=== PATIENT | female | born 1960 | race Caucasian/White ===

== ENCOUNTER 2016-05-10 08:35 | Day surgery (SDC) | payer MEDICAID ==
[2016-05-05 13:13] VITALS: BMI 27.7
--- NOTE | 2016-05-06 15:13 | HP ---
DATE OF ADMISSION: 05/10/2016 HISTORY OF PRESENT ILLNESS: The patient is a 55-year-old 1, para 1-0-0-1 who recently was found by pelvic ultrasound to have a thickened endometrial stripe without any irregular bleeding. She does have a history of tamoxifen therapy and was referred for endometrial biopsy. In the office, the cervix was noted to be fairly stenotic and biopsy was unable to be obtained. As a result, we have opted to proceed with diagnostic hysteroscopy with D&C. Past medical history is significant for low-grade Pap in the past. She additionally has a history of a brain aneurysm as well as breast cancer, which has been treated. SURGICAL HISTORY: She had a bladder suspension in 1992. She underwent aneurysm repair in 2007. She had bilateral mastectomy with reconstruction in 2012. She additionally had a thyroid nodule removed in 2009. There are no apparent anesthetic concerns. OBSTETRICAL HISTORY: 1, para 1-0-0-1 with one term vaginal delivery without complications. GYNECOLOGIC HISTORY: Unremarkable with no history of any infections to include STDs. Family history is noncontributory. 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 She is a former smoker but has not smoked in quite some time. She denies any significant alcohol or any other social concerns. Current medications include: 1. Aspirin 81 mg daily. 2. Bactrim DS once daily for recurrent bladder infections. 3. Cymbalta 20 mg 2 times daily. 4. Tamoxifen 10 mg daily. 5. Vitamin D daily. 6. Xanax 0.25 mg p.r.n. ALLERGIES: ULTRAM caused hives. Review of systems is confined to history of present illness. PHYSICAL EXAMINATION: In general, this is a well-developed, well-nourished, white female in no acute distress. Her heart has a regular rhythm without murmur. Her lungs are clear to auscultation bilaterally in all carrillo. Her abdomen is nondistended, has normoactive bowel sounds. It is soft, nontender, and without any palpable masses, hepatosplenomegaly or hernias. Her extremities are without any cyanosis, clubbing or edema and are nontender to palpation bilaterally. Bimanual pelvic examination demonstrates normal external genitalia and BUS with normal vaginal mucosa and cervix. There is no cervical motion tenderness. The uterus is normal in size and shape with normal adnexa bilaterally. ASSESSMENT AND PLAN: 1. Thickened endometrial stripe on tamoxifen, cervical stenosis. Given these findings we were unable to perform a biopsy in the office. As a result, we will proceed to diagnostic hysteroscopy with dilation and curettage. The risks and complications of the procedure have been thoroughly discussed including the risks for bleeding, bleeding requiring transfusion, infection or injury to local structures to specifically include uterine perforation and the possibility of Asherman's syndrome. She has understood all of these risks and agreed to proceed. We are scheduled for the morning of May 10, 2016.
[~2016-05-10 08:35] MED LIST: DEXAMETHASONE SOD PHOSPHATE 10 MG/ML 1 ML VIAL IV ONE; HYDROmorphone 1 MG/ML 1 ML SYRINGE IVP PRN; LACTATED RINGERS 1,000 ML IV SCH; LIDOCAINE 1% 20 ML VIAL (10MG/ML) FOR IV START INTRADERMA PRN; MIDAZOLAM 2 MG/2 ML VIAL IV PRN; ONDANSETRON 4 MG/2 ML VIAL IVP ONE; Pre Op ABX Message 1 EACH MISC MISCELLANE ONE; SCOPOLAMINE 1.5MG/72HR PATCH TRANSDERM ONE
[2016-05-10] MEDS ORDERED: PROPOFOL 10 MG/ML 20 ML VIAL IV ONE (09:28)
[2016-05-10] MEDS ORDERED: KETOROLAC 30 MG/ML 1 ML VIAL ONE (09:28)
[2016-05-10] MEDS ORDERED: MIDAZOLAM 2 MG/2 ML VIAL ONE (09:28)
[2016-05-10] MEDS ORDERED: fentaNYL (PF) 50 MCG/ML 2 ML AMP ONE (09:28)
[2016-05-10] MEDS ORDERED: LIDOCAINE 1% INJ 10MG/ML (20 ML MDV) ONE (09:28)
[2016-05-10] MEDS ORDERED: diphenhydrAMINE 50 MG/ML 1 ML VIAL IVP PRN (09:35)
[2016-05-10] MEDS ORDERED: KETOROLAC 30 MG/ML 1 ML VIAL IVP PRN (09:35)
[2016-05-10] MEDS ORDERED: SIMETHICONE 80 MG CHEWABLE PO PRN (09:35)
[2016-05-10] MEDS ORDERED: ONDANSETRON 4 MG/2 ML VIAL IVP PRN (09:35)
[2016-05-10] MEDS ORDERED: Acetaminophen-Codeine 300-30mg TAB PO PRN ×2 (09:35)
[2016-05-10] MEDS ORDERED: METOCLOPRAMIDE 5 MG/ML 2 ML VIAL IVP PRN (09:35)
[2016-05-10] MEDS ORDERED: LACTATED RINGERS 1,000 ML IV SCH (09:45)
--- NOTE | 2016-05-10 09:55 | P.OP ---
Date of Procedure: 05/10/16 Preoperative Diagnosis: #1. Thickened endometrial stripe #2. Cervical stenosis Postoperative Diagnosis: Same Procedure(s) Performed: #1. Diagnostic hysteroscopy #2. Dilation and curettage Anesthesia: other (Gen. by facemask) Surgeon: Carlos Torres Estimated Blood Loss (ml): 2 IV fluids (ml): 100 Urine output (ml): 5 Pathology: other (Endometrial curettings) Condition: stable Disposition: PACU Operative Findings: Preoperative pelvic examination demonstrated a fairly atrophic midplane mobile normal shaped uterus with normal adnexa bilaterally. Intraoperatively, the uterus sounded to 7 cm. The cervix remained fairly significantly stenotic and difficult to dilate. Using the hysteroscope, the entire uterine cavity was seen and was completely atrophic to inspection. The bilateral tubal areas were seen though the ostia were not documented secondary to angles. There was minimal to no tissue returned with sharp curettage consistent with the hysteroscopic findings. The typical gritty texture was encountered throughout. Description of Procedure: The patient was prepped and draped in usual fashion after general anesthesia was administered by the anesthesiologist. A weighted speculum was placed in the anterior lip of the surgical single-tooth tenaculum. The bladder was draining approximately 5 mL of clear shabana urine. Serial dilation was carried out until the sound could be admitted demonstrated a uterine length of 7 cm. Further dilation was carried out to admit the diagnostic hysteroscope which was placed with the findings as noted above. There was no evidence of pathology throughout the entire cavity. The entire endometrium appeared atrophic in nature. The bilateral tubal areas were seen though the ostia were not documented secondary to difficulty with the angle of the scope in the vagina. The hysteroscope was removed after adequate hysteroscopy was carried out. Further dilation was carried out to admit a small sharp curette which was used to thoroughly and circumferentially curet the entire endometrial cavity with the typical gritty texture encountered throughout. Minimal to no tissue was returned onto the Telfa in the vagina. There was no significant ongoing bleeding. Some bleeding from the tenaculum sites after the cervix was released were made hemostatic with pressure. Estimated blood loss for the case was less than 2 mL. There were no complications. All sponge, instrument, and needle counts were correct. The patient tolerated the procedure well and proceeded to the recovery room in stable condition.
[2016-05-10 10:06] VITALS: TEMP 97.2
[2016-05-10 10:41] VITALS: RESP 18
[2016-05-10 11:16] VITALS: BP 120/72; PULSE 65
== END 2016-05-10 11:33 | disposition home or self-care (01) ==
LOC: OR 08:35
PROVIDERS: ATTEND Obstetrics & Gynecology
DX: N84.0 Polyp of corpus uteri (principal); R93.8 Abnormal findings on diagnostic imaging of other specified body structures; N88.2 Stricture and stenosis of cervix uteri; F32.9 Major depressive disorder, single episode, unspecified; Z85.3 Personal history of malignant neoplasm of breast; Z79.1 Long term (current) use of non-steroidal anti-inflammatories (NSAID); Z79.2 Long term (current) use of antibiotics; Z79.82 Long term (current) use of aspirin; Z79.810 Long term (current) use of selective estrogen receptor modulators (SERMs); Z79.899 Other long term (current) drug therapy; Z88.8 Allergy status to other drugs, medicaments and biological substances; Z87.891 Personal history of nicotine dependence
CPT/HCPCS: 88305; 58558; J2250; J1100; J2405; J2001; J3010; J1885; J2704

== ENCOUNTER → 2016-07-05 | Outpatient (CLI) | payer MEDICAID ==
--- NOTE | 2016-07-05 12:33 | BD ---
EXAMINATION TYPE: MG DEXA axial skeleton. DATE OF EXAM: 07/05/2016 10:39 AM CLINICAL HISTORY: Breast cancer. Height: 58.5 inches Weight: 135 FRAX RISK QUESTIONS: Alcohol (3 or more units per day): no Family History (Parent hip fracture): no Glucocorticoids (More than 3mos): no (Ex: prednisone, prednisolone, methylprednisolone, dexamethasone, and hydrocortisone). History of Fracture in Adulthood: thumb Secondary Osteoporosis: 1. Type 1 Diabetes: no 2. Hyperthyroidism: no 3. Menopause before 45: no 4. Malnutrition: no 5. Chronic liver disease: no Rheumatoid Arthritis: no Current Tobacco Use: not now, quit RISK FACTORS HISTORY OF: History of Fracture: yes, thumb When: early 20's Family History of Osteoporosis: perhaps grandmother Drink Alcohol: no Active: YES Diet low in dairy products/other sources of calcium: no Postmenopausal woman: yes Take estrogen and/or progesterone medications: not now How long: Hormonal Contraceptives age 16-26 Lost more than 2 inches in height since high school: no Frequent falls: no Poor Health: no Hyperparathyroidism: no Adrenal Insufficiency: no MEDICATIONS: Prednisone or other steroids: no Thyroid Medications: no Osteoporosis Medications: no Additional Medications: Vitamin D, Additional History: breast CA (radiation) took Tamoxifen since 2012, but recently patient's physician placed her on a different medication to replace Tamoxifen EXAM MEASUREMENTS: Bone mineral densitometry was performed using the Uguru System. Bone mineral density as measured about the Lumbar spine is: ----- L1-L4(G/cm2): 0.785 T Score Values are as follows: ----- L2: -3.3 ----- L3: -3.7 ----- L4: -3.6 ----- L1-L4: -3.3 Bone mineral density BASELINE Bone mineral density about the R hip (g/cm2): 0.723 Bone mineral density about the L hip (g/cm2): 0.746 T Score values are as follows: -----R Neck: -2.3 -----L Neck: -2.1 -----R Intertrochanter: -1.9 -----L Intertrochanter: -1.9 Bone mineral density BASELINE IMPRESSION: Osteoporosis (T Score less than -2.5) as noted by T Score values in the low back.There is increased f racture risk and repeat therapy is usually indicated based on age. Re-Screen 1-2 years. NOTE: T-SCORE=SD OF THE YOUNG ADULT MEAN.
== END ==
LOC: RADBDWWP 09:59
PROVIDERS: ATTEND Internal Medicine Hematology & Oncology
DX: M81.0 Age-related osteoporosis without current pathological fracture (principal); C50.912 Malignant neoplasm of unspecified site of left female breast; Z79.890 Hormone replacement therapy; N95.1 Menopausal and female climacteric states; Z88.5 Allergy status to narcotic agent
CPT/HCPCS: 77080

== ENCOUNTER → 2016-11-17 | Outpatient (CLI) | payer MEDICAID ==
--- NOTE | 2016-11-17 13:53 | XR ---
EXAMINATION TYPE: XR shoulder complete RT DATE OF EXAM: 11/17/2016 CLINICAL HISTORY: Right shoulder pain for one year with no known injury TECHNIQUE: Three views of the right shoulder are obtained. COMPARISON: None. FINDINGS: There is no acute fracture/dislocation evident in the right shoulder. The acromioclavicul ar and glenohumeral joint spaces appear within normal limits. The visualized ribs are intact and unr emarkable. Surgical clips are seen overlying the right peripheral lung, likely within the soft tissue s. IMPRESSION: There is no acute fracture or dislocation in the right shoulder. Unremarkable radiograph .
== END | disposition home or self-care (01) ==
LOC: RADXRMAIN 12:47
PROVIDERS: ATTEND Family Medicine
DX: M25.511 Pain in right shoulder (principal)

== ENCOUNTER 2017-05-13 06:22 | Day surgery (SDC) | payer MEDICAID ==
[2017-05-06 12:51] VITALS: BMI 27.9
--- NOTE | 2017-05-12 09:09 | HP ---
HISTORY AND PHYSICAL CHIEF COMPLAINT: Right shoulder pain. 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 She is having a difficult time with overhead activity and at night. She notes anterior and lateral pain. She has tried therapy in addition to medications with minimal improvement of her symptoms. She takes Motrin and oxycodone for pain relief. PAST MEDICAL HISTORY: Significant for breast cancer, depression, brain aneurysm, coronary artery disease, hyperparathyroidism. PAST SURGICAL HISTORY: Significant for previous to bilateral mastectomy, bladder suspension, partial thyroidectomy. CURRENT MEDICATIONS: Aspirin, oxycodone, ibuprofen, and Nexemestane. ALLERGIES: SHE NOTES ALLERGIES TO ULTRAM. FAMILY HISTORY: Is negative. SOCIAL HISTORY: Negative for current tobacco or alcohol use. REVIEW OF SYSTEMS: Sixteen point review of systems otherwise reviewed and is noncontributory. PHYSICAL EXAMINATION: On examination, the patient is approximately 4 foot 11, 136 pounds of mesomorphic habitus. HEENT exam is nonfocal. Neck is supple. On examination of her right shoulder, she is tender about the anterior subacromial space. She has moderate subacromial crepitus. Active range of motion forward elevation 150 degrees, external rotation with arm side 60 degrees, internal rotation to L2. Motor strength is 5 minus over 5 for abduction, active, and external rotation. Impingement test is positive. Speed test is positive. Her distal neurovascular exam otherwise appears intact in the right upper extremity. X-rays of the right shoulder obtained in the office show a type 2 acromion with cystic changes of the greater tuberosity. The humeral head to acromial distance appears diminished. MRI report from 04/08/2017 of the right shoulder shows evidence of a supraspinatus, infraspinatus, and subscapularis tear. There is also bicipital tendinosis present. IMPRESSION: 1. Right shoulder symptomatic rotator cuff tear. 2. Right proximal bicipital tendinosis. 3. History of breast cancer. RECOMMENDATIONS: I talked to the patient at length regarding her condition and treatment options. At this point, she is having significant symptoms despite conservative measures. After thorough discussion, she opts to proceed with surgery. We will plan to proceed with arthroscopic evaluation with possible rotator cuff debridement versus repair. We will also consider biceps tenotomy and subacromial decompression. We will likely perform that as an outpatient procedure. Risks and benefits were discussed at length in layman's terms. MMODL / IJN: [id number] /
[~2017-05-13 06:22] MED LIST changes: -HYDROmorphone 1 MG/ML 1 ML SYRINGE IVP PRN; -LIDOCAINE 1% 20 ML VIAL (10MG/ML) FOR IV START INTRADERMA PRN; +MORPHINE SULFATE 4 MG/ML SYRINGE IV PRN; -Pre Op ABX Message 1 EACH MISC MISCELLANE ONE; +ceFAZolin 1,000 MG in DEXTROSE/WATER 1 50ML.BAG IV ONE
[2017-05-13 06:49] VITALS: RESP 16; TEMP 97.6
[2017-05-13] MEDS ORDERED: LIDOCAINE 1% 20 ML VIAL (10MG/ML) FOR IV START INTRADERMA ONE (06:55)
[2017-05-13] MEDS ORDERED: fentaNYL (PF) 50 MCG/ML 2 ML AMP IV ONE (07:06)
--- NOTE | 2017-05-13 07:26 | P.ONQ ---
Anesthesiology Proc Note - PNB - Peripheral Nerve Block Performed Right Interscalene Single Time Out Performed: Yes (705) Procedure Start Time: 07:06 Procedure Stop Time: 07:14 Indication: Acute Post-Operative Pain, Requested by physician Sedation Type: Sedate with meaningful contact maintained Preparation: Sterile Prep Position: Supine Catheter: None Needle Types: Facet Needle Size: 50mm (2") Needle Gauge: 20 Technique: Ultrasound Injectate: 0.5% Ropivacaine (see comment for volume) (20 mls of Ropivacaine) Blood Aspirated: No Pain Paresthesia on Injection Noted: No Resistance on Injection: Normal Events: Uneventful and Well Tolerated
--- NOTE | 2017-05-13 09:26 | P.OP ---
Date of Procedure: 05/13/17 Preoperative Diagnosis: Symptomatic right rotator cuff tear Postoperative Diagnosis: 3 cm right rotator cuff tear/high-grade partial-thickness tear long head of the biceps/superior labral tear Procedure(s) Performed: Right shoulder arthroscopic subacromial decompression/biceps tenotomy/superior labral debridement/rotator cuff repair Implants: Arthrex 4.75 mm swivel lock anchor 4 Anesthesia: [facility], [facility] Surgeon: Octaviano Herrera Stockbroker #1: Kit Medina Estimated Blood Loss (ml): 10 Pathology: none sent Condition: stable Disposition: PACU Indications for Procedure: The patient's a 57-year-old female who presents with progressive right shoulder pain despite conservative measures. A discussion of the risks and benefits of operative intervention versus continued conservative measures was made with the patient. She opted to proceed with surgery. Operative risks to include infection, neurovascular injury, development of blood clots, possible tendon repair, possible need for subsequent procedures was discussed. Informed consent was obtained. Operative Findings: As below Description of Procedure: The patient was brought to the operating room, and after induction of general anesthesia was placed in a beachchair position. The bony prominences were appropriately padded. I examined the right shoulder. There was no gross block to passive motion. There was no gross glenohumeral instability. The right upper shoulder was prepped and draped in a normal fashion. The bony outlines the acromion, distal clavicle, and coracoid process were outlined with a skin marker. The glenohumeral joint was inflated 50 mL of saline utilizing a spinal needle from posterior approach. A posterior portal was made through a 5 mm skin incision 1 cm medial and inferior to the posterior lateral border of the acromion. A blunt trocar was used to easily into the joint. Diagnostic arthroscopy was performed. An anterior portals made entering the joint above the subscapularis tendon lateral to the coracoid process. The subscapularis tendon appear to be intact. There was a high-grade partial-thickness tear of the long head of biceps involving the intra-articular portion. It was elected to proceed with tenotomy at this point. This was released from the superior labrum and allowed to retract the bicipital groove with electrocautery. There was a type II tear involving the superior labrum that was debrided back to stable base with a motorized shaver. The anterior posterior labrum appeared to be intact. On inspection the rotator cuff, a full-thickness tear involving the supraspinatus tendon was noted. A partial thickness tear involving the portion the infraspinatus was noted. This was debrided with motorized shaver. The posterior portion of the cuff appeared to be intact. Minimal degenerative changes involving humeral head and glenoid were noted. The arthroscope was then placed into the subacromial space. A lateral portal was made through a 5 mm skin incision 2 cm inferior to the anterolateral border of the acromion. The soft tissue on the undersurface the acromion was debrided with a motorized shaver and electrocautery clearly defining the anterior medial and lateral borders as well as the distal clavicle. The coracoacromial ligament was detached from the anterior acromion with electrocautery. An anterior inferior acromioplasty is performed with a motorized myra starting anterolateral, then extending posteriorly, then extending this medially. I was able to convert to a flat acromion verified on the posterior and lateral viewing portals. Attention was then paid towards the rotator cuff. A full-thickness tear was visualized. The edges were debrided with a motorized shaver. The greater tuberosity was prepared and lightly decorticated utilizing a motorized bur. The rotator cuff tear. A 3 cm in length. This is easily brought back to the greater tuberosity. An accessory superior lateral portal was made through a 4 mm skin incision just off the lateral edge of the acromion. 2 anchors were then placed just off the articular surface with the appropriate starting awl. Good purchase was obtained. The fiber tape was passed through the rotator cuff with a scorpion suture passer. These were then crisscrossed and a lateral row was created utilizing again 2 anchors with the appropriate starting awl. The rotator cuff was appropriately tensioned. Good purchase was obtained. Final arthroscopic view showed good compression at the footprint. The arthroscope was then removed. The portals were closed with simple 3-0 nylon suture. A sterile dressing was applied in addition to an abductor brace. Patient was awoken from general anesthesia and transferred to recovery room in good condition. Blood loss was estimated 10 mL. No complications were incurred. Sponge and needle counts were correct at the end the case.
[2017-05-13] MEDS ORDERED: HYDROmorphone 0.5 MG/0.5 ML SYRINGE IVP ONE ×4 (09:57→10:24)
[2017-05-13] MEDS ORDERED: LACTATED RINGERS 1,000 ML IV ONE (10:25)
[2017-05-13 12:35] VITALS: BP 116/81; PULSE 101
== END 2017-05-13 13:02 | disposition home or self-care (01) ==
LOC: OR 06:22
PROVIDERS: ATTEND Orthopaedic Surgery
DX: M75.101 Unspecified rotator cuff tear or rupture of right shoulder, not specified as traumatic (principal); S46.111A Strain of muscle, fascia and tendon of long head of biceps, right arm, initial encounter; S43.431A Superior glenoid labrum lesion of right shoulder, initial encounter; X58.XXXA Exposure to other specified factors, initial encounter; E21.3 Hyperparathyroidism, unspecified; I25.10 Atherosclerotic heart disease of native coronary artery without angina pectoris; Z87.891 Personal history of nicotine dependence; F32.9 Major depressive disorder, single episode, unspecified; Z85.3 Personal history of malignant neoplasm of breast; Z90.13 Acquired absence of bilateral breasts and nipples; Z79.811 Long term (current) use of aromatase inhibitors; Z79.82 Long term (current) use of aspirin; Z79.1 Long term (current) use of non-steroidal anti-inflammatories (NSAID); Z79.899 Other long term (current) drug therapy; Z79.891 Long term (current) use of opiate analgesic; Z88.5 Allergy status to narcotic agent
CPT/HCPCS: 64415; 29826; 29827; C1713; C1894; J2250; J1100; J2405; J3010; J0690; J1170

== ENCOUNTER → 2017-11-09 | Outpatient (CLI) | payer MEDICAID ==
--- NOTE | 2017-11-09 14:14 | USB ---
Reason for exam: clinical finding. History: Patient has history of breast cancer at age 51. Malignant left mammotome panel of the left breast, September 30, 2011. Mastectomy of both breasts, 2011. Chemotherapy, 2011. Benign excisional biopsy of both breasts, 1990. Took hormonal contraceptives for 10 years beginning at age 18. Indicated problem(s): lump or thickening in the left breast. Physical Findings: Nurse Summary: Patient complains of left axilla lump/soreness x 1 week, palpable lump/thickening left axilla (nurse mj). US Breast Axilla LT Left axilla breast ultrasound demonstrates a 1.6 x 1.3 x 1.5cm solid, hypoechoic lesion at the axilla, a 1.6 x 1.2 x 1.8cm solid, hypoechoic lesion at the axilla and a 3.3 x 4.7 x 4.6cm complex, hypoechoic lesion at the axilla. These results were verbally communicated with the patient and result sheet given to the patient on 11/09/17. ASSESSMENT: Highly suggestive of malignancy, BI-RAD 5 RECOMMENDATION: Surgical consultation of the left breast. Called Dr. Penny with mammographic findings and has scheduled an appointment with Dr. Aponte. PRELIMINARY REPORT CALLED AND FAXED TO DR. IRWIN ON 11/09/17.
--- NOTE | 2017-11-09 14:18 | USB ---
Reason for exam: clinical finding. History: Patient has history of breast cancer at age 51. Malignant left mammotome panel of the left breast, September 30, 2011. Mastectomy of both breasts, 2011. Chemotherapy, 2011. Benign excisional biopsy of both breasts, 1990. Took hormonal contraceptives for 10 years beginning at age 18. Physical Findings: Nurse Summary: Patient complains of left axilla lump/soreness x 1 week, palpable lump/thickening left axilla (nurse mj). US Breast Axilla RT Right axilla breast ultrasound demonstrates small non-suspicious lymph nodes at axilla, probably lipomas bilateral upper outer quadrants. These results were verbally communicated with the patient and result sheet given to the patient on 11/09/17. ASSESSMENT: Highly suggestive of malignancy, BI-RAD 5 RECOMMENDATION: Surgical consultation. (left) Called Dr. Penny with mammographic findings and has scheduled an appointment with Dr. Aponte. PRELIMINARY REPORT CALLED AND FAXED TO DR. IRWIN ON 11/09/17.
== END | disposition home or self-care (01) ==
LOC: RADUSWWP 10:57
PROVIDERS: ATTEND Internal Medicine Hematology & Oncology
DX: C50.912 Malignant neoplasm of unspecified site of left female breast (principal); Z88.6 Allergy status to analgesic agent; Z91.048 Other nonmedicinal substance allergy status

== ENCOUNTER → 2017-11-28 | Outpatient (CLI) | payer MEDICAID ==
--- NOTE | 2017-11-29 10:36 | ECHOF ---
Referral Reason:C50.912 Z10.018 MEASUREMENTS -------- HEIGHT: 149.9 cm WEIGHT: 65.8 kg BP: RVIDd: 3.0 cm (< 3.3) IVSd: 0.9 cm (0.6 - 1.1) LVIDd: 4.2 cm (3.9 - 5.3) LVPWd: 1.0 cm (0.6 - 1.1) IVSs: 1.3 cm LVIDs: 2.3 cm LVPWs: 1.2 cm LAESV Index (A-L): 13.96 ml/m Ao Diam: 2.9 cm (2.0 - 3.7) AV Cusp: 2.1 cm (1.5 - 2.6) LA Diam: 2.5 cm (2.7 - 3.8) MV EXCURSION: 11.844 mm (> 18.000) MV EF SLOPE: 85 mm/s (70 - 150) EPSS: 0.8 cm MV E Ke: 0.78 m/s MV DecT: 276 ms MV A Ke: 0.87 m/s MV E/A Ratio: 0.90 RAP: 5.00 mmHg RVSP: 23.10 mmHg FINDINGS -------- Sinus rhythm. This was a technically adequate study. The left ventricular size is normal. Left ventricular wall thickness is normal. Overall left vent ricular systolic function is normal with, an EF between 55 - 60 %. The right ventricle is normal in size and function. Normal LA size by volume 22+/-6 ml/m2. RA appears enlarged. Aortic valve is trileaflet and is mildly thickened. Trace to mild aortic regurgitation. There is no evidence of aortic stenosis. The mitral valve leaflets are mildly thickened. There is trace to mild mitral regurgitation. Mild tricuspid regurgitation present. Right ventricular systolic pressure is normal at < 35 mmHg. There is no evidence of pulmonary hypertension. Trace/mild (physiologic) pulmonic regurgitation. The aortic root size is normal. Normal inferior vena cava with normal inspiratory collapse consistent with estimated right atrial pre ssure of 5 mmHg. There is no pericardial effusion. CONCLUSIONS -------- 1. Sinus rhythm. 2. This was a technically adequate study. 3. The left ventricular size is normal. 4. Left ventricular wall thickness is normal. 5. Overall left ventricular systolic function is normal with, an EF between 55 - 60 %. 6. Normal LA size by volume 22+/-6 ml/m2. 7. RA appears enlarged. 8. Aortic valve is trileaflet and is mildly thickened. 9. Trace to mild aortic regurgitation. 10. The mitral valve leaflets are mildly thickened. 11. There is trace to mild mitral regurgitation. 12. Mild tricuspid regurgitation present. 13. Right ventricular systolic pressure is normal at < 35 mmHg. 14. There is no evidence of pulmonary hypertension. 15. Trace/mild (physiologic) pulmonic regurgitation. 16. The aortic root size is normal. 17. There is no pericardial effusion. DIAGNOSTIC TECHNOLOGIST: Valdemar Adams RDCS
== END | disposition home or self-care (01) ==
LOC: RADECHMAIN 15:47
PROVIDERS: ATTEND Internal Medicine Hematology & Oncology
DX: Z01.818 Encounter for other preprocedural examination (principal); I07.1 Rheumatic tricuspid insufficiency; C50.912 Malignant neoplasm of unspecified site of left female breast
CPT/HCPCS: 93306

== ENCOUNTER 2017-12-01 12:44 | Day surgery (SDC) | payer MEDICAID ==
[2017-11-30 08:18] VITALS: BMI 29.2
[~2017-12-01 12:44] MED LIST changes: +HYDROmorphone 0.5 MG/0.5 ML SYRINGE IVP PRN; -MIDAZOLAM 2 MG/2 ML VIAL IV PRN; -MORPHINE SULFATE 4 MG/ML SYRINGE IV PRN; +Pre Op ABX Message 1 EACH MISC MISCELLANE ONE; -SCOPOLAMINE 1.5MG/72HR PATCH TRANSDERM ONE; -ceFAZolin 1,000 MG in DEXTROSE/WATER 1 50ML.BAG IV ONE
--- NOTE | 2017-12-01 12:51 | P.GSHP ---
History of Present Illness H&P Date: 12/01/17 Chief Complaint: Recurrent left breast cancer Patient here today for Port-A-Cath placement. Was diagnosed with left breast cancer 5-6 years ago. Recently found a mass in the left axilla. Biopsy is showing a recurrent left breast cancer. She is to start chemotherapy in the near future. 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 BREAST CANCER 2012 & 10/2017 History of Any Multi-Drug Resistant Organisms: None Reported Past Surgical History: Bladder Surgery, Breast Surgery, Orthopedic Surgery Additional Past Surgical History / Comment(s): thyroid NODULE REMOVED. BILAT MASTECTOMY W/FLAP AND CHEMO 2012. COLONOSCOPY. D & C. BLADDER SUSPENSION; Shoulder Arthroscopy Past Anesthesia/Blood Transfusion Reactions: No Reported Reaction Smoking Status: Former smoker - Past Family History Mother Family Medical History: No Reported History Medications and Allergies Home Medications Medication Instructions Recorded Confirmed Type Cholecalciferol [Vitamin D3] 1,000 unit PO DAILY 10/24/13 11/30/17 History Vitamin B Complex 1 cap PO DAILY 05/05/16 11/30/17 History Aspirin EC [Ecotrin Low Dose] 81 mg PO DAILY 07/22/16 11/30/17 History DULoxetine HCL [Cymbalta] 30 mg PO DAILY 07/22/16 11/30/17 History Ibuprofen [Motrin] 800 mg PO Q8HR PRN #21 tab 07/23/16 11/30/17 Rx ALPRAZolam [Xanax] 0.25 mg PO DAILY PRN 05/06/17 11/30/17 History HYDROcodone/APAP 7.5-325MG [[place] 1 - 2 each PO Q6HR PRN #40 tab 05/13/17 Rx 7.5] Allergies Allergy/AdvReac Type Severity Reaction Status Date / Time tramadol HCl [From Ultram] Allergy Rash/Hives Verified 11/30/17 08:13 Surgical - Exam Physical exam: General: Well-developed, well-nourished HEENT: Normocephalic, sclerae nonicteric Abdomen: Nontender, nondistended Extremities: No edema Neuro: Alert and oriented Assessment and Plan (1) Breast cancer, left breast Narrative/Plan: Will proceed with Port-A-Cath placement today. Risks of bleeding, infection, DVT , pneumothorax, catheter malfunction, anesthesia related complications were discussed. The patient understands and wishes to proceed. Current Visit: Yes Status: Acute Code(s): C50.912 - MALIGNANT NEOPLASM OF UNSPECIFIED SITE OF LEFT FEMALE BREAST SNOMED Code(s): 650515542
[2017-12-01 13:20] VITALS: TEMP 98
[2017-12-01] MEDS ORDERED: LACTATED RINGERS 1,000 ML IV ONE (13:20)
[2017-12-01] MEDS ORDERED: LIDOCAINE 1% 20 ML VIAL (10MG/ML) FOR IV START INTRADERMA ONE (13:20)
[2017-12-01] MEDS ORDERED: fentaNYL (PF) 50 MCG/ML 2 ML AMP ONE (14:28)
[2017-12-01] MEDS ORDERED: MIDAZOLAM 2 MG/2 ML VIAL ONE (14:28)
[2017-12-01] MEDS ORDERED: PROPOFOL 10 MG/ML 20 ML VIAL IV ONE (14:28)
[2017-12-01] MEDS ORDERED: SODIUM CHLORIDE 0.9% 50 ML with ceFAZolin 2,000 MG IV ONE ×2 (14:45)
[2017-12-01] MEDS ORDERED: HEPARIN SODIUM,PORCINE 100 UNIT/ML 5 ML VIAL IV ONE (14:50)
[2017-12-01] MEDS ORDERED: LIDOCAINE (PF) 10 MG/ML 2 ML VIAL SQ ONE (14:50)
[2017-12-01] MEDS ORDERED: HYDROcodone/APAP 5-325MG 1 EACH TAB PO PRN (15:09)
[2017-12-01] MEDS ORDERED: NALOXONE 0.4 MG/ML 1 ML VIAL IV PRN (15:09)
--- NOTE | 2017-12-01 15:11 | P.OP ---
Date of Procedure: 12/01/17 Procedure(s) Performed: PREOPERATIVE DIAGNOSIS: Recurrent left breast cancer POSTOPERATIVE DIAGNOSIS: Same PROCEDURE: Port-A-Cath placement SURGEON: Fabienne EBL: Minimal ANESTHESIA: Sedation COMPLICATIONS: None OPERATIVE PROCEDURE: Patient was brought and placed on the operative table in the supine position. The patient was sedated per anesthesia that time. The chest and neck were prepped and draped in usual sterile fashion. The ultrasound probe was used to identify the location of the right internal jugular vein. The skin was localized with lidocaine. The Seldinger needle was advanced into the IJ under ultrasound guidance. The wire was advanced through the needle under fluoroscopic guidance into the superior vena cava. A port pocket was created in the right infraclavicular location through the same previous scar site. The catheter was tunneled from the wire entrance site to the port pocket. The port was then connected to the catheter. The dilator introducer was threaded over the guidewire. The guidewire and dilator were then removed. The catheter was advanced through the introducer and introducer was then removed. The tip was seen to be in the right atrial junction. Port was flushed with both saline and a Hep-Lock solution. There was good flow both in and out of the port. The port was sutured in underlying tissues using 3-0 silk sutures. The subcutaneous tissues were reapproximated using 3-0 Vicryl sutures and the skin at both locations using 4-0 Monocryl sutures. Steri- Strips and sterile dressings then applied. DISPOSITION: Stable to recovery room
--- NOTE | 2017-12-01 15:18 | FL ---
EXAMINATION TYPE: FL guided central line placemt HISTORY: Fluoroscopy time Impression: 1. Fluoroscopy support provided to the referring physician. 3 seconds of fluoroscopy provided.
[2017-12-01 15:24] VITALS: RESP 16
--- NOTE | 2017-12-01 15:49 | XR ---
EXAMINATION TYPE: XR chest 1V confirm line [facility] DATE OF EXAM: 12/01/2017 COMPARISON: 07/22/2016 HISTORY: Right central line placement TECHNIQUE: Single frontal view of the chest is obtained. FINDINGS: There is a new right Mediport terminating just proximal to the cavoatrial junction, approp riately placed. There is no evidence of postprocedural pneumothorax. Surgical clips overlie the midli ne chest bilaterally. Curvilinear metallic densities are also presumed to be postoperative in nature adjacent to the surgical clips. There is no focal air space opacity, pleural effusion, or pulmonary v ascular congestion seen. The cardiac silhouette size is within normal limits. The osseous structur es are intact. IMPRESSION: New appropriately placed right-sided Mediport without postprocedural pneumothorax.
[2017-12-01 16:14] VITALS: BP 132/82; PULSE 64
== END 2017-12-01 16:21 | disposition home or self-care (01) ==
LOC: OR 12:44
PROVIDERS: ATTEND Surgery
DX: C50.912 Malignant neoplasm of unspecified site of left female breast (principal); Z17.0 Estrogen receptor positive status [ER+]; R91.1 Solitary pulmonary nodule; M81.0 Age-related osteoporosis without current pathological fracture; G47.00 Insomnia, unspecified; F32.9 Major depressive disorder, single episode, unspecified; E89.0 Postprocedural hypothyroidism; Z92.21 Personal history of antineoplastic chemotherapy; Z79.82 Long term (current) use of aspirin; Z79.899 Other long term (current) drug therapy; Z90.13 Acquired absence of bilateral breasts and nipples; Z88.5 Allergy status to narcotic agent; Z91.048 Other nonmedicinal substance allergy status; Z87.891 Personal history of nicotine dependence
CPT/HCPCS: 77001; 36561; C1788; J2250; J2001; J1642; J1100; J2405; J3010; J0690; J2704

== ENCOUNTER → 2017-12-03 | Outpatient (CLI) | payer MEDICAID ==
--- NOTE | 2017-12-03 15:31 | PE ---
EXAMINATION TYPE: PET CT fusion skull to thigh DATE OF EXAM: 12/03/2017 COMPARISON: Bilateral axillary ultrasound November 09, 2017 and CTA chest November 01, 2013 HISTORY: History of left breast cancer diagnosed 2012 completed chemotherapy 2011 with bilateral mast ectomy 2012 with recent abnormal ultrasound left axilla. TECHNIQUE: Following the intravenous administration of 13.416 mCi of F-18 FDG, whole body images are performed from the skull base to the midthigh. Images are reviewed on the computer in the coronal, axial, and sagittal planes. Reconstructed rotating images are created on independent workstation and reviewed on the computer. A localization and attenuation correction CT is performed in conjunction with the PET scan. SCAN: Initial Scan FINDINGS: SKULL BASE AND NECK: No suspicious hypermetabolic uptake is present. Mild uptake at level of right g lenohumeral joint is presumed postinflammatory. CHEST, MEDIASTINUM, AND HILAR REGION: Corresponding to most recent ultrasound there are several enlar ged left axillary masses or lymph nodes, largest measures 5.4 x 3.5 cm on axial image 64 with max SUV of 15.79. Additional smaller hypermetabolic masses or lymph nodes are present. Surgical possible bio psy clip is noted anteriorly inferiorly axial image 70. This is new from 2014 CT. No suspicious hypermetabolic right axillary adenopathy is seen. There are abnormal hypermetabolic thoracic lymph nodes however noted. For reference there is 2.1 x 1. 5 cm pericarinal lymph node axial image 73 with max SUV of 8.9. For reference there is abnormal subca rinal lymph node measuring 2.3 x 1.8 cm axial image 79 with max SUV of 11.42. There are additional ab normal hypermetabolic AP window lymph noted axial image 71 and right hilar lymph nodes axial image 86 . ABDOMEN AND PELVIS: There are 2-3 suspicious hypermetabolic foci scattered throughout the liver, larg est is seen axial image 113 measuring roughly 1.5 cm on long axis max SUV is 8.05, corresponding CT l esions are not clearly seen but early metastatic disease is suspected given thoracic findings. OSSEOUS STRUCTURES: No new areas of abnormal hypermetabolic uptake are present. OTHER CT: Artifact from aneurysm coil axial image 1 as noted. There is new right internal jugular Mediport catheter terminating in SVC. There is background mild to moderate underlying emphysematous change. There are stable tiny pericardial effusion. IMPRESSION: PET/CT findings confirmed recurrent metastatic neoplasm involving the left axilla, thorac ic adenopathy as detailed above, and probable early hepatic metastatic disease.
== END | disposition home or self-care (01) ==
LOC: RADPETMAIN 11:39
PROVIDERS: ATTEND Internal Medicine Hematology & Oncology
DX: C79.89 Secondary malignant neoplasm of other specified sites (principal); R59.0 Localized enlarged lymph nodes; C50.812 Malignant neoplasm of overlapping sites of left female breast
CPT/HCPCS: 78815; A9552

== ENCOUNTER 2017-12-17 02:32 | Inpatient (IN) | payer MEDICAID ==
[2017-12-17] MEDS ORDERED: IBUPROFEN 600 MG TAB PO STA (02:57)
[2017-12-17] MEDS ORDERED: cefTRIAXone IN SWFI 1,000 MG/10 ML SYRINGE IVP STA (02:57)
[2017-12-17] MEDS: SODIUM CHLORIDE 0.9% 500 ML IV SCH ×3 (04:05→05:27)
[2017-12-17 04:14] LABS: HGB 11.8 gm/dL (11.4-16.0); MCH 30.5 pg (25.0-35.0); MCHC 33.6 g/dL (31.0-37.0); MCV 90.9 fL (80.0-100.0); Mean Platelet Volume 7.2; Platelet Count 202 k/uL (150-450); RBC 3.85 m/uL (3.80-5.40); RDW 12.5 % (11.5-15.5)
[2017-12-17 04:17] LABS: Appearance,Urine Clear (Clear); Bilirubin,Urine Negative (Negative); Blood,Urine Small (Negative); Color,Urine Yellow; Glucose,Urine (UA) Negative (Negative); Ketones,Urine Negative (Negative); Leukocyte Esterase,Urine Negative (Negative); Mucus,Urine Rare /hpf; Nitrite,Urine Negative (Negative); Protein,Urine Negative (Negative); RBC,Urine 1 /hpf (0-5); Specific Gravity,Urine 1.008 (1.001-1.035); Squamous Epithelial Cell,Urine <1 /hpf (0-4); Urobilinogen,Urine <2.0 mg/dL (<2.0); WBC,Urine 1 /hpf (0-5)
[2017-12-17 04:20] LABS: ALT 53 U/L (9-52); AST 30 U/L (14-36); Albumin 3.8 g/dL (3.5-5.0); Alkaline Phosphatase 60 U/L (38-126); Anion Gap 7 mmol/L; Blood Urea Nitrogen 12 mg/dL (7-17); Calcium 10.5 mg/dL (8.4-10.2); Carbon Dioxide 25 mmol/L (22-30); Chloride 104 mmol/L (98-107); Glucose 116 mg/dL (74-99); Potassium 3.6 mmol/L (3.5-5.1); Sodium 136 mmol/L (137-145); Total Bilirubin 0.5 mg/dL (0.2-1.3); Total Protein 6.6 g/dL (6.3-8.2)
[2017-12-17 04:38] LABS: WBC 1.1 k/uL (3.8-10.6)
[2017-12-17 05:09] LABS: Band Neutrophils % 1 %; Basophils # (M) 0.02 k/uL (0-0.2); Eosinophils # (M) 0.02 k/uL (0-0.7); Lymphocytes # (M) 0.85 k/uL (1.0-4.8); Monocytes # (M) 0.13 k/uL (0-1.0); Neutrophils % (M) 6 %; Nucleated Red Blood Cells 0 /100 WBC (0-0); Total Cells Counted 100
[2017-12-17] MEDS ORDERED: ACETAMINOPHEN TAB 325 MG TAB PO PRN (05:26)
[2017-12-17] MEDS ORDERED: NALOXONE 0.4 MG/ML 1 ML VIAL IV PRN (05:26)
[2017-12-17] MEDS ORDERED: IBUPROFEN 400 MG TAB PO PRN (05:26)
--- NOTE | 2017-12-17 05:38 | ED ---
General Adult HPI - General Chief complaint: Fever Stated complaint: fever Time Seen by Provider: 12/17/17 02:57 Source: patient Mode of arrival: ambulatory Limitations: no limitations - History of Present Illness Initial comments: Kell is a 57-year-old female with a past medical history significant for breast cancer diagnosed 5 years ago, with recently diagnosed recurrent metastatic breast cancer in the lymph nodes. Patient is currently undergoing chemotherapy with a triple drug regimen. Patient reports that she's been experiencing some mild tenderness to, acid reflux and diarrhea since starting chemotherapy. Patient reports that last week she was diagnosed with otitis media and given an oral antibiotic which she has been compliant with. Patient reports that she is feeling okay this week but throughout the day today she felt progressively weaker. She reports she was at home this evening when she began having hot flashes and feeling very febrile, she checked her temperature noted that it was 101.4, she took some Tylenol and came to the ER for further evaluation. Patient reports she still has mild pain in her left ear and left cervical lymph nodes as well as a sore throat. Patient reports that her last chemotherapy was last Tuesday. Her next chemotherapy is scheduled for the . Patient reports that 5 years ago when she was treated for her breast cancer she tolerated chemotherapy well without complications but she feels that this triple drug regimen is really kicking her butt and that she is feeling very run down by this round of chemotherapy. - Related Data Home Medications Medication Instructions Recorded Confirmed Cholecalciferol [Vitamin D3] 1,000 unit PO DAILY 10/24/13 12/09/17 Vitamin B Complex 1 cap PO DAILY 05/05/16 12/09/17 Aspirin EC [Ecotrin Low Dose] 81 mg PO DAILY 07/22/16 12/09/17 DULoxetine HCL [Cymbalta] 30 mg PO DAILY 07/22/16 12/09/17 ALPRAZolam [Xanax] 0.25 mg PO DAILY PRN 05/06/17 12/09/17 Dexamethasone [Hexadrol] 4 mg PO DIRECTED 12/09/17 12/09/17 Ondansetron [Zofran] 4 mg PO DIRECTED PRN 12/09/17 12/09/17 Previous Rx's Medication Instructions Recorded Ibuprofen [Motrin] 800 mg PO Q8HR PRN #21 tab 07/23/16 HYDROcodone/APAP 7.5-325MG [[place] 1 - 2 each PO Q6HR PRN #40 tab 05/13/17 7.5] Hydrocodone/Acetaminophen [[place] 1 - 2 each PO Q4HR PRN #15 tab 12/01/17 5-325] Allergies Allergy/AdvReac Type Severity Reaction Status Date / Time tramadol HCl [From Ultram] Allergy Rash/Hives Verified 12/17/17 02:38 Review of Systems ROS Statement: Those systems with pertinent positive or pertinent negative responses have been documented in the HPI. ROS Other: All systems not noted in ROS Statement are negative. Constitutional: Reports: fever, chills Eyes: Denies: eye pain, eye discharge, vision change ENT: Reports: ear pain, throat pain. Denies: dental pain, hearing loss, epistaxis, congestion Respiratory: Denies: cough, dyspnea Cardiovascular: Reports: palpitations. Denies: chest pain Endocrine: Reports: fatigue Gastrointestinal: Reports: abdominal pain (epigastric - after each chemo), nausea, diarrhea Genitourinary: Denies: urgency, dysuria, frequency Musculoskeletal: Denies: back pain Skin: Denies: rash, lesions Neurological: Denies: headache Psychiatric: Reports: depression (situationally appropriate). Denies: anxiety Hematological/Lymphatic: Reports: easy bruising, swollen glands (palpable left axillary lymph nodes). Denies: easy bleeding Past Medical History Past Medical History: Cancer Additional Past Medical History / Comment(s): BRAIN ANEURYSM 2008 REQUIRED COILING AT [facility]. BREAST CANCER 2012 & 10/2017 History of Any Multi-Drug Resistant Organisms: None Reported Past Surgical History: Bladder Surgery, Breast Surgery, Orthopedic Surgery Additional Past Surgical History / Comment(s): thyroid NODULE REMOVED. BILAT MASTECTOMY W/FLAP AND CHEMO 2012. COLONOSCOPY. D & C. BLADDER SUSPENSION; Shoulder Arthroscopy Past Anesthesia/Blood Transfusion Reactions: No Reported Reaction Past Psychological History: Anxiety, Depression Smoking Status: Former smoker Past Alcohol Use History: None Reported Past Drug Use History: None Reported - Past Family History Mother Family Medical History: No Reported History General Exam - General Exam Comments Initial Comments: GENERAL: Patient is well-developed and well-nourished. Patient is nontoxic and slightly dehydrated in mild distress. Patient is noted to be tachycardic and febrile on arrival. HENT: Normocephalic, Atraumatic. Left TM is erythematous with some purulent material behind the TM, no mastoid tenderness, no swelling around the ear, no surrounding cellulitis or infection Neck is soft and supple. No anterior cervical lymphadenopathy is noted. Oropharynx is clear with small blisters in the posterior oropharynx. Moist mucous membranes. Neck has full range of motion without eliciting any pain. EYES: The sclera were anicteric and conjunctiva were pink and moist. Extraocular movements were intact and pupils were equal round and reactive to light. Eyelids were unremarkable. PULMONARY: Unlabored respirations. Good breath sounds bilaterally. No audible rales rhonchi or wheezing was noted. CARDIOVASCULAR: Tachycardic and regular ABDOMEN: Soft and nontender with normal bowel sounds. SKIN: Skin is clear with no lesions or rashes and otherwise unremarkable. NEUROLOGIC: Patient is alert and oriented x3. Cranial nerves II through XII are grossly intact. Motor and sensory are also intact. Normal speech, volume and content. Symmetrical smile. MUSCULOSKELETAL: Normal extremities with adequate strength and full range of motion. No lower extremity swelling or edema. No calf tenderness. LYMPHATICS: Palpable lymph nodes in the left axilla PSYCHIATRIC: Normal psychiatric evaluation. Limitations: no limitations Limitations: no limitations Course Vital Signs 12/17/17 12/17/17 02:36 05:30 Temperature 98.2 F 98.0 F Pulse Rate 127 H Respiratory 20 Rate Blood Pressure 112/74 O2 Sat by Pulse 97 Oximetry EKG Findings - EKG Comments: EKG Findings:: EKG obtained at 4:20 AM, rate is 90, rhythm is sinus, normal axis , normal intervals, AK 142, QRS 82, QTc 433, there is no acute ST elevations or depressions no evidence of acute ischemia or infarction Medical Decision Making - Medical Decision Making The patient was seen and evaluated, history was obtained from the patient and review of medical record Karey immunocompromise patient currently undergoing chemotherapy, currently being treated for an otitis media who presents the ER febrile, tachycardic, tachypneic with complaint of persistent left ear pain as well as sore throat Physical exam reveals mild otitis media, no evidence of otitis externa or mastoiditis on exam Posterior oropharynx is injected with some small blisters consistent with mucositis associated with chemotherapy Septic workup was initiated, an empiric dose of Rocephin was ordered and given The patient's tachycardia resolved after first liter of IV fluids I return to the patient's room to discuss her lab findings including leukopenia with an absolute neutrophil count of 0, patient became very upset stating that she didn't want to stay in the hospital although she does understand the need to. I will treat this neutropenic fever with cefepime Will admit the patient for further antibiotic treatment, oncology and infectious disease consulted Discussed patient care with the admitting ordered nadirs to ensure that the patient has an isolation room and strict neutropenic precautions were followed. - Lab Data Result diagrams: 12/17/17 03:59 12/17/17 03:59 Lab Results 12/17/17 12/17/17 12/17/17 Range/Units 03:59 03:59 03:59 WBC 1.1 L* (3.8-10.6) k/uL RBC 3.85 (3.80-5.40) m/uL Hgb 11.8 (11.4-16.0) gm/dL Hct 35.0 (34.0-46.0) % MCV 90.9 (80.0-100.0) fL MCH 30.5 (25.0-35.0) pg MCHC 33.6 (31.0-37.0) g/dL RDW 12.5 (11.5-15.5) % Plt Count 202 (150-450) k/uL Neutrophils % (Manual) 6 % Band Neutrophils % 1 % Lymphocytes % (Manual) 77 % Monocytes % (Manual) 12 % Eosinophils % (Manual) 2 % Basophils % (Manual) 2 % Neutrophils # (Manual) 0.00 L (1.3-7.7) k/uL Lymphocytes # (Manual) 0.85 L (1.0-4.8) k/uL Monocytes # (Manual) 0.13 (0-1.0) k/uL Eosinophils # (Manual) 0.02 (0-0.7) k/uL Basophils # (Manual) 0.02 (0-0.2) k/uL Nucleated RBCs 0 (0-0) /100 WBC Manual Slide Review Performed PT (9.0-12.0) sec INR (<1.2) APTT (22.0-30.0) sec Sodium 136 L (137-145) mmol/L Potassium 3.6 (3.5-5.1) mmol/L Chloride 104 (98-107) mmol/L Carbon Dioxide 25 (22-30) mmol/L Anion Gap 7 mmol/L BUN 12 (7-17) mg/dL Creatinine 0.60 (0.52-1.04) mg/dL Est GFR (CKD-EPI)AfAm >90 (>60 ml/min/1.73 sqM) Est GFR (CKD-EPI)NonAf >90 (>60 ml/min/1.73 sqM) Glucose 116 H (74-99) mg/dL Plasma Lactic Acid Jorge 0.7 (0.7-2.0) mmol/L Calcium 10.5 H (8.4-10.2) mg/dL Total Bilirubin 0.5 (0.2-1.3) mg/dL AST 30 (14-36) U/L ALT 53 H (9-52) U/L Alkaline Phosphatase 60 (38-126) U/L Troponin I (0.000-0.034) ng/mL Total Protein 6.6 (6.3-8.2) g/dL Albumin 3.8 (3.5-5.0) g/dL Urine Color Urine Appearance (Clear) Urine pH (5.0-8.0) Ur Specific [place] (1.001-1.035) Urine Protein (Negative) Urine Glucose (UA) (Negative) Urine Ketones (Negative) Urine Blood (Negative) Urine Nitrite (Negative) Urine Bilirubin (Negative) Urine Urobilinogen (<2.0) mg/dL Ur Leukocyte Esterase (Negative) Urine RBC (0-5) /hpf Urine WBC (0-5) /hpf Ur Squamous Epith Cells (0-4) /hpf Urine Mucus (None) /hpf Group A Strep Rapid (Negative) 12/17/17 12/17/17 12/17/17 Range/Units 03:59 03:59 03:59 WBC (3.8-10.6) k/uL RBC (3.80-5.40) m/uL Hgb (11.4-16.0) gm/dL Hct (34.0-46.0) % MCV (80.0-100.0) fL MCH (25.0-35.0) pg MCHC (31.0-37.0) g/dL RDW (11.5-15.5) % Plt Count (150-450) k/uL Neutrophils % (Manual) % Band Neutrophils % % Lymphocytes % (Manual) % Monocytes % (Manual) % Eosinophils % (Manual) % Basophils % (Manual) % Neutrophils # (Manual) (1.3-7.7) k/uL Lymphocytes # (Manual) (1.0-4.8) k/uL Monocytes # (Manual) (0-1.0) k/uL Eosinophils # (Manual) (0-0.7) k/uL Basophils # (Manual) (0-0.2) k/uL Nucleated RBCs (0-0) /100 WBC Manual Slide Review PT 10.0 (9.0-12.0) sec INR 1.0 (<1.2) APTT 24.0 (22.0-30.0) sec Sodium (137-145) mmol/L Potassium (3.5-5.1) mmol/L Chloride (98-107) mmol/L Carbon Dioxide (22-30) mmol/L Anion Gap mmol/L BUN (7-17) mg/dL Creatinine (0.52-1.04) mg/dL Est GFR (CKD-EPI)AfAm (>60 ml/min/1.73 sqM) Est GFR (CKD-EPI)NonAf (>60 ml/min/1.73 sqM) Glucose (74-99) mg/dL Plasma Lactic Acid Jorge (0.7-2.0) mmol/L Calcium (8.4-10.2) mg/dL Total Bilirubin (0.2-1.3) mg/dL AST (14-36) U/L ALT (9-52) U/L Alkaline Phosphatase (38-126) U/L Troponin I <0.012 (0.000-0.034) ng/mL Total Protein (6.3-8.2) g/dL Albumin (3.5-5.0) g/dL Urine Color Yellow Urine Appearance Clear (Clear) Urine pH 6.0 (5.0-8.0) Ur Specific [place] 1.008 (1.001-1.035) Urine Protein Negative (Negative) Urine Glucose (UA) Negative (Negative) Urine Ketones Negative (Negative) Urine Blood Small H (Negative) Urine Nitrite Negative (Negative) Urine Bilirubin Negative (Negative) Urine Urobilinogen <2.0 (<2.0) mg/dL Ur Leukocyte Esterase Negative (Negative) Urine RBC 1 (0-5) /hpf Urine WBC 1 (0-5) /hpf Ur Squamous Epith Cells <1 (0-4) /hpf Urine Mucus Rare H (None) /hpf Group A Strep Rapid (Negative) 12/17/17 Range/Units 04:11 WBC (3.8-10.6) k/uL RBC (3.80-5.40) m/uL Hgb (11.4-16.0) gm/dL Hct (34.0-46.0) % MCV (80.0-100.0) fL MCH (25.0-35.0) pg MCHC (31.0-37.0) g/dL RDW (11.5-15.5) % Plt Count (150-450) k/uL Neutrophils % (Manual) % Band Neutrophils % % Lymphocytes % (Manual) % Monocytes % (Manual) % Eosinophils % (Manual) % Basophils % (Manual) % Neutrophils # (Manual) (1.3-7.7) k/uL Lymphocytes # (Manual) (1.0-4.8) k/uL Monocytes # (Manual) (0-1.0) k/uL Eosinophils # (Manual) (0-0.7) k/uL Basophils # (Manual) (0-0.2) k/uL Nucleated RBCs (0-0) /100 WBC Manual Slide Review PT (9.0-12.0) sec INR (<1.2) APTT (22.0-30.0) sec Sodium (137-145) mmol/L Potassium (3.5-5.1) mmol/L Chloride (98-107) mmol/L Carbon Dioxide (22-30) mmol/L Anion Gap mmol/L BUN (7-17) mg/dL Creatinine (0.52-1.04) mg/dL Est GFR (CKD-EPI)AfAm (>60 ml/min/1.73 sqM) Est GFR (CKD-EPI)NonAf (>60 ml/min/1.73 sqM) Glucose (74-99) mg/dL Plasma Lactic Acid Jorge (0.7-2.0) mmol/L Calcium (8.4-10.2) mg/dL Total Bilirubin (0.2-1.3) mg/dL AST (14-36) U/L ALT (9-52) U/L Alkaline Phosphatase (38-126) U/L Troponin I (0.000-0.034) ng/mL Total Protein (6.3-8.2) g/dL Albumin (3.5-5.0) g/dL Urine Color Urine Appearance (Clear) Urine pH (5.0-8.0) Ur Specific [place] (1.001-1.035) Urine Protein (Negative) Urine Glucose (UA) (Negative) Urine Ketones (Negative) Urine Blood (Negative) Urine Nitrite (Negative) Urine Bilirubin (Negative) Urine Urobilinogen (<2.0) mg/dL Ur Leukocyte Esterase (Negative) Urine RBC (0-5) /hpf Urine WBC (0-5) /hpf Ur Squamous Epith Cells (0-4) /hpf Urine Mucus (None) /hpf Group A Strep Rapid Negative (Negative) Disposition Clinical Impression: Neutropenic fever, Breast cancer, left breast Disposition: ADMITTED IP TO THIS [facility] Condition: Stable Referrals: Igor Bland DO [Primary Care Provider] - 1-2 days
[2017-12-17 07:27] LABS: Glucose,Whole Blood 108 mg/dL (75-99)
[2017-12-17] MEDS: CEFEPIME 2 GM in SODIUM CHLORIDE 0.9% 50 ML IVPB SCH ×3 (09:24→23:59)
[2017-12-17] MEDS: ENOXAPARIN 40 MG/0.4 ML SYRINGE SQ SCH (09:27)
[2017-12-17 09:42] VITALS: BMI 29.2
[2017-12-17] MEDS ORDERED: VANCOMYCIN IV PER PHARMACY 1 EACH MISC MISCELLANE PRN (09:47)
--- NOTE | 2017-12-17 09:53 | P.CONS ---
History of Present Illness - Reason for Consult Consult date: 12/17/17 Recurrent Breast Cancer Requesting physician: Rae Leiva - Chief Complaint Febrile Neutropenia - History of Present Illness This is a very nice lady who was originally diagnosed with left breast cancer in . She had a core biopsy which confirmed invasive ductal carcinoma, she went to [facility], had further breast imaging including MRI, subsequently on )10/27/2012,she had a partial left breast mastectomy and sentinel nodes biopsy,the pathology revealed a 3.5cm, grade II, invasive carcinoma, one sentinel LN was involved with isolated tumor cell, DCIS which were present at the margin.She had a CT scan of chest/abdomen/pelvis and a bone scan which were negative for metastatic disease.She had re-excision on 2012 which revealed a residual focus of invasive carcinoma and DCIS at the margin. Her tumor was ER/MA+ and HER2/FILIBERTO positive by FISH. She received systemic chemotherapy with 4 cycles of AC and completed 12 weekly treatment with taxol/herceptin in June/2012. A repeat MUGA scan at [facility] on 07/24/2012 revealed an EF of 55%. Repeat MUGA scan at [facility] on 11/22/2012 revealed an EF of 49%. repeat MUGA scan on 02/27/2013 revealed further decline in EF to 39% and herceptin was discontinued (last 2 treatment were held). Repeat MUGA scan in revealed an EF of 52%. She started tamoxifen in . On 06/23/2015, serum estradiol, FSH, LH were consistent with postmenopause, tamoxifen was discontinued in and was placed on aromatase inhibitors, initially femara and then aromasin (she could not tolerate femara well) Bone density on 07/05/2016 revealed osteoporosis and was started on prolia. She did well until end of October/2017 when she presented with left axillary mass,U /S revealed very large left axillary node,she had a core biopsy of left axillary node at [facility] on 11/17/2017 which was positive for recurrent breast cancer,ER+(80%), MA negative and HEr2/FILIBERTO positive (3+). Bilateral breast MRI on 11/22/2017 revealed large left axillary mass, 7.7cm extending to subpectoralis muscle and subclavian vein. On 11/24/2017,CT scan of chest/abdomen/pelvis revealed 6.5cm mass in left axilla with 3.5cm extension to subpectolaris, 1.2cm right hilar node, 1.6cm precranial node, 2.3cm subcarinal node, 2 RLL lung nodules (9 and 10mm) and 1.5cm liver lesion. On 12/09/17, she was started on Taxotere, Herceptin, and Perjeta. Today she presents with Neutropenia and Fever. She did not receive [place] stimulating factor after first cycle of taxotere on 12/09/17. Huizar cultures are in process. Cefepime and Vancomycin and Zarxio for a neutrophil count of 0.0 added. Patient states t max was 101.9 at home, since admission has been afebrile. She complains of persistent diarrhea not relieved with imodium at home, inability to swallow with heart burn and mouth pain. Review of Systems A 14 point review of systems assessed and completed and all negative except HPI Past Medical History Past Medical History: Cancer Additional Past Medical History / Comment(s): BRAIN ANEURYSM 2007 REQUIRED COILING AT [facility]. BREAST CANCER 2012 & 10/2017 History of Any Multi-Drug Resistant Organisms: None Reported Past Surgical History: Bladder Surgery, Breast Surgery, Orthopedic Surgery Additional Past Surgical History / Comment(s): thyroid NODULE REMOVED. BILAT MASTECTOMY W/FLAP AND CHEMO 2012. COLONOSCOPY. D & C. BLADDER SUSPENSION; Shoulder Arthroscopy Past Anesthesia/Blood Transfusion Reactions: No Reported Reaction Past Psychological History: Anxiety, Depression Smoking Status: Former smoker Past Alcohol Use History: None Reported Past Drug Use History: None Reported - Past Family History Mother Family Medical History: No Reported History Father Family Medical History: No Reported History Additional Family Medical History / Comment(s): cousin had breast CA Medications and Allergies Home Medications Medication Instructions Recorded Confirmed Type Cholecalciferol [Vitamin D3] 1,000 unit PO DAILY 10/24/13 12/17/17 History Vitamin B Complex 1 cap PO DAILY 05/05/16 12/17/17 History Aspirin EC [Ecotrin Low Dose] 81 mg PO DAILY 07/22/16 12/17/17 History DULoxetine HCL [Cymbalta] 30 mg PO DAILY 07/22/16 12/17/17 History Ibuprofen [Motrin] 800 mg PO Q8HR PRN #21 tab 07/23/16 12/17/17 Rx ALPRAZolam [Xanax] 0.25 mg PO BID PRN 05/06/17 12/17/17 History Dexamethasone [Hexadrol] 4 mg PO DIRECTED 12/09/17 12/17/17 History Ondansetron [Zofran] 4 mg PO Q8HR PRN 12/09/17 12/17/17 History Acetaminophen [Tylenol] 325 - 650 mg PO Q6H PRN 12/17/17 12/17/17 History Amoxic-Pot Clav 875-125Mg 1 tab PO Q12HR 12/17/17 12/17/17 History [Augmentin 875-125] Famotidine [Pepcid] 40 mg PO BID 12/17/17 12/17/17 History HYDROcodone/APAP 5-325MG [[place] 1 - 2 tab PO Q4HR PRN 12/17/17 12/17/17 History 5-325] HYDROcodone/APAP 7.5-325MG [[place] 1 - 2 tab PO Q6H PRN 12/17/17 12/17/17 History 7.5-325] Allergies Allergy/AdvReac Type Severity Reaction Status Date / Time tramadol HCl [From [facility]] Allergy Rash/Hives Verified 12/17/17 12:33 Physical Exam Vitals: Vital Signs Temp Pulse Pulse Resp BP BP Pulse Ox 12/17/17 07:17 98.1 F 91 16 125/87 99 12/17/17 05:30 98.0 F 12/17/17 02:36 98.2 F 127 H 20 112/74 97 Intake and Output 12/16/17 12/17/17 12/17/17 22:59 06:59 14:59 Other: Weight 63.503 kg Gen: Alert and Oriented x2, NAD Head: NC,NT Neck: Supple, Trachea Midline Mouth: No Thrush present, Erythema and edema noted tongue, gumline and poeterior pharynx consistent with a grade 2 mucocyitis Heart - Tachy, Reg Lungs: CTA Bilateral, no increased effort Abdomen, Soft, ND, NT Extremities: No edema. No rashes No neurological deficits noted Results CBC & Chem 7: 12/17/17 03:59 12/17/17 03:59 Labs: Abnormal Lab Results - Last 24 Hours (Table) 12/17/17 12/17/17 12/17/17 Range/Units 03:59 03:59 03:59 WBC 1.1 L* (3.8-10.6) k/uL Neutrophils # (Manual) 0.00 L (1.3-7.7) k/uL Lymphocytes # (Manual) 0.85 L (1.0-4.8) k/uL Sodium 136 L (137-145) mmol/L Glucose 116 H (74-99) mg/dL POC Glucose (mg/dL) (75-99) mg/dL Calcium 10.5 H (8.4-10.2) mg/dL ALT 53 H (9-52) U/L Urine Blood Small H (Negative) Urine Mucus Rare H (None) /hpf 12/17/17 Range/Units 07:25 WBC (3.8-10.6) k/uL Neutrophils # (Manual) (1.3-7.7) k/uL Lymphocytes # (Manual) (1.0-4.8) k/uL Sodium (137-145) mmol/L Glucose (74-99) mg/dL POC Glucose (mg/dL) 108 H (75-99) mg/dL Calcium (8.4-10.2) mg/dL ALT (9-52) U/L Urine Blood (Negative) Urine Mucus (None) /hpf Assessment and Plan Plan: Assessment and Recommendations: 1. Recurrent Metastatic Breast Cancer - Triple Positive - Recently restarted on therapy with Taxotere, Herceptin, and Perjeta - Last treatment on 12/09/17 - Chemotherapy on Hold until acute situation resolves - Add Neulasta to continued treatments as outpatient 2. Febrile Neutropenia: - Neuts are 0.0, add Zarxio - Await Huizar Culture results - Cefepime ordered, will add vancomycomycin for full coverage of neutropenic patient and then defer to Infectious disease further management - ID consulted 3. Grade 2 Mucocitis: - No Thrush Noted, culture pending - Kools with added dexamethasone to swish QID - Re-educated oral mouth care on chemotherapy 4. GERD: - On Pepcid at this time, await stool cultures and if c diff negative I would continue her as outpatient on PPI with CHemotherapy and Steroids 5. Diarrhea unrelieved with Imodium - Obtain Stool Cultures and C-diff - Add Questran - If Stool studies negative add Lomotil PRN - Etiology likely Antibodies and chemotherapy THank you for allowing us to participate in care of your patient Marycarmen Ceballos NP
[2017-12-17] MEDS ORDERED: VANCOMYCIN 1,250 MG in SODIUM CHLORIDE 0.9% 250 ML IVPB SCH (10:00)
[2017-12-17] MEDS ORDERED: IBUPROFEN 800 MG TAB PO PRN (10:37)
[2017-12-17] MEDS ORDERED: ONDANSETRON 4 MG TAB PO PRN (10:37)
[2017-12-17] MEDS ORDERED: DEXAMETHASONE 4 MG TAB PO SCH (10:45)
[2017-12-17] MEDS: SODIUM CHLORIDE 0.9% 1,000 ML IV SCH ×2 (12:00→17:17)
--- NOTE | 2017-12-17 12:08 | P.HPIM ---
History of Present Illness 57-year-old female came in with the fever high-grade fever at home. Patient denied dysuria patient denied any cough. Patient the was told she has middle ear infection couple days ago patient was started on amoxicillin. Patient was seen in ER was told she has continued middle ear infection patient was started on broad-spectrum antibiotics cefepime and vancomycin was ordered by oncology. Patient is neutropenic received chemotherapy about a week ago for breast cancer which was her last patient visit for cycle of chemo did not receive any call me submitting factor. Patient was also having diarrhea multiple times. Patient had about 3 episodes of diarrhea today C. diff is being obtained. Infectious disease was consulted. Review of Systems REVIEW OF SYSTEMS: CONSTITUTIONAL: As mentioned in HPI. HEENT: No recent visual problems or hearing problems. Denied any sore throat. CARDIOVASCULAR: No chest pain, orthopnea, PND, no palpitations, no syncope. PULMONARY: No shortness of breath, no cough, no hemoptysis. GASTROINTESTINAL: no nausea, no vomiting, no abdominal pain. Normoactive bowel sounds. NEUROLOGICAL: No headaches, no weakness, no numbness. HEMATOLOGICAL: Denies any bleeding or petechiae. GENITOURINARY: Denies any burning micturition, frequency, or urgency. MUSCULOSKELETAL/RHEUMATOLOGICAL: Denies any joint pain, swelling, or any muscle pain. ENDOCRINE: Denies any polyuria or polydipsia. The rest of the 14-point review of systems is negative. Past Medical History Past Medical History: Cancer Additional Past Medical History / Comment(s): BRAIN ANEURYSM 2007 REQUIRED COILING AT [facility]. BREAST CANCER 2012 & 10/2017 History of Any Multi-Drug Resistant Organisms: None Reported Past Surgical History: Bladder Surgery, Breast Surgery, Orthopedic Surgery Additional Past Surgical History / Comment(s): thyroid NODULE REMOVED. BILAT MASTECTOMY W/FLAP AND CHEMO 2012. COLONOSCOPY. D & C. BLADDER SUSPENSION; Shoulder Arthroscopy Past Anesthesia/Blood Transfusion Reactions: No Reported Reaction Past Psychological History: Anxiety, Depression Smoking Status: Former smoker Past Alcohol Use History: None Reported Past Drug Use History: None Reported - Past Family History Mother Family Medical History: No Reported History Father Family Medical History: No Reported History Additional Family Medical History / Comment(s): cousin had breast CA Medications and Allergies Home Medications Medication Instructions Recorded Confirmed Type Cholecalciferol [Vitamin D3] 1,000 unit PO DAILY 10/24/13 12/17/17 History Vitamin B Complex 1 cap PO DAILY 05/05/16 12/17/17 History Aspirin EC [Ecotrin Low Dose] 81 mg PO DAILY 07/22/16 12/17/17 History DULoxetine HCL [Cymbalta] 30 mg PO DAILY 07/22/16 12/17/17 History Ibuprofen [Motrin] 800 mg PO Q8HR PRN #21 tab 07/23/16 12/17/17 Rx ALPRAZolam [Xanax] 0.25 mg PO BID PRN 05/06/17 12/17/17 History HYDROcodone/APAP 7.5-325MG [[place] 1 - 2 each PO Q6HR PRN #40 tab 05/13/17 Rx 7.5] Hydrocodone/Acetaminophen [[place] 1 - 2 each PO Q4HR PRN #15 tab 12/01/17 Rx 5-325] Dexamethasone [Hexadrol] 4 mg PO DIRECTED 12/09/17 12/17/17 History Ondansetron [Zofran] 4 mg PO DIRECTED PRN 12/09/17 12/17/17 History Famotidine [Pepcid] 20 mg PO BID 12/17/17 12/17/17 History Allergies Allergy/AdvReac Type Severity Reaction Status Date / Time tramadol HCl [From [facility]] Allergy Rash/Hives Verified 12/17/17 02:38 Physical Exam Vitals: Vital Signs Temp Pulse Pulse Resp BP BP Pulse Ox 12/17/17 11:42 91 16 12/17/17 07:17 98.1 F 91 16 125/87 99 12/17/17 05:30 98.0 F 12/17/17 02:36 98.2 F 127 H 20 112/74 97 Intake and Output 12/16/17 12/17/17 12/17/17 22:59 06:59 14:59 Other: Voiding Method Toilet Weight 63.503 kg PHYSICAL EXAMINATION: GENERAL: The patient is alert and oriented x3, not in any acute distress. Well developed, well nourished. HEENT: Pupils are round and equally reacting to light. EOMI. No scleral icterus. No conjunctival pallor. Normocephalic, atraumatic. No pharyngeal erythema. No thyromegaly. Patient does have some tenderness in the left mastoid area and in the anterior aspect of sternocleidomastoid CARDIOVASCULAR: S1 and S2 present. No murmurs, rubs, or gallops. PULMONARY: Chest is clear to auscultation, no wheezing or crackles. ABDOMEN: Soft, nontender, nondistended, normoactive bowel sounds. No palpable organomegaly. MUSCULOSKELETAL: No joint swelling or deformity. EXTREMITIES: No cyanosis, clubbing, or pedal edema. NEUROLOGICAL: Gross neurological examination did not reveal any focal deficits. SKIN: No rashes. Results CBC & Chem 7: 12/17/17 03:59 12/17/17 03:59 Labs: Abnormal Lab Results - Last 24 Hours (Table) 12/17/17 12/17/17 12/17/17 Range/Units 03:59 03:59 03:59 WBC 1.1 L* (3.8-10.6) k/uL Neutrophils # (Manual) 0.00 L (1.3-7.7) k/uL Lymphocytes # (Manual) 0.85 L (1.0-4.8) k/uL Sodium 136 L (137-145) mmol/L Glucose 116 H (74-99) mg/dL POC Glucose (mg/dL) (75-99) mg/dL Calcium 10.5 H (8.4-10.2) mg/dL ALT 53 H (9-52) U/L Urine Blood Small H (Negative) Urine Mucus Rare H (None) /hpf 12/17/17 Range/Units 07:25 WBC (3.8-10.6) k/uL Neutrophils # (Manual) (1.3-7.7) k/uL Lymphocytes # (Manual) (1.0-4.8) k/uL Sodium (137-145) mmol/L Glucose (74-99) mg/dL POC Glucose (mg/dL) 108 H (75-99) mg/dL Calcium (8.4-10.2) mg/dL ALT (9-52) U/L Urine Blood (Negative) Urine Mucus (None) /hpf Microbiology - Last 24 Hours (Table) 12/17/17 03:59 Urine Culture - Preliminary Urine,Clean Catch 12/17/17 04:11 Group A Strep Throat Culture - Preliminary Throat Thrombosis Risk Factor Assmnt - Choose All That Apply Each Factor Represents 1 point: Age 41-60 years Thrombosis Risk Factor Assessment Total Risk Factor Score: 1 Thrombosis Risk Factor Assessment Level: Low Risk Assessment and Plan Plan: -Neutropenic fever and sepsis: Possible sources of her middle ear infection or C. diff colitis. C. diff colitis assessing will be obtained infectious disease was consulted by oncology. Continue with cefepime and vancomycin for now awaiting blood cultures urine cultures. -Neutropenia: Secondary to chemotherapy. -Breast cancer: Triple positive inpatient the did receive recent chemotherapy and patient will be on hormone therapy believe -Depression: Continue with duloxetine.
[2017-12-17] MEDS: ALPRAZolam 0.25 MG TAB PO PRN (12:24)
[2017-12-17] MEDS: FILGRASTIM-SNDZ 480 MCG/0.8 ML SYRINGE SQ SCH (12:25)
[2017-12-17] MEDS: VANCOMYCIN 1,250 MG in SODIUM CHLORIDE 0.9% 250 ML IVPB SCH ×2 (12:25→18:09)
[2017-12-17] MEDS ORDERED: PANTOPRAZOLE 40 MG TABLET PO STA (14:34)
[2017-12-17] MEDS ORDERED: DEXAMETHASONE 0.5 MG TAB PO SCH (16:00)
[2017-12-17] MEDS: MAG HYDROX/AL HYDROX/SIMETH 30 ML, diphenhydrAMINE ELIXIR 75 MG, LIDOCAINE VISCOUS 30 M... PO SCH ×8 (17:15→22:06)
[2017-12-17] MEDS ORDERED: FAMOTIDINE 20 MG TAB PO SCH (21:00)
[2017-12-17] MEDS: HYDROcodone/APAP 5-325MG 1 EACH TAB PO PRN (22:10)
[2017-12-17] MEDS: FAMOTIDINE 20 MG TAB PO SCH (22:56)
[2017-12-18] MEDS: SODIUM CHLORIDE 0.9% 1,000 ML IV SCH ×3 (01:40→22:24)
[2017-12-18] MEDS: VANCOMYCIN 1,250 MG in SODIUM CHLORIDE 0.9% 250 ML IVPB SCH ×3 (01:47→18:21)
[2017-12-18] MEDS ORDERED: PANTOPRAZOLE 40 MG TABLET PO SCH (07:30)
[2017-12-18 07:31] LABS: HCT 34.4 % (34.0-46.0); MCH 29.9 pg (25.0-35.0); MCHC 31.9 g/dL (31.0-37.0); MCV 93.7 fL (80.0-100.0); Mean Platelet Volume 6.6; Platelet Count 216 k/uL (150-450); RBC 3.67 m/uL (3.80-5.40); RDW 12.7 % (11.5-15.5)
[2017-12-18 07:35] LABS: WBC 1.2 k/uL (3.8-10.6)
[2017-12-18] MEDS: ENOXAPARIN 40 MG/0.4 ML SYRINGE SQ SCH (07:38)
[2017-12-18] MEDS: ASPIRIN 81 MG PO SCH (07:39)
[2017-12-18] MEDS: DULoxetine HCL 30 MG CAPSULE.DR PO SCH (07:39)
[2017-12-18] MEDS: FAMOTIDINE 20 MG TAB PO SCH ×2 (07:40→20:19)
[2017-12-18] MEDS: MAG HYDROX/AL HYDROX/SIMETH 30 ML, diphenhydrAMINE ELIXIR 75 MG, LIDOCAINE VISCOUS 30 M... PO SCH ×12 (07:40→22:23)
[2017-12-18 07:45] LABS: ALT 45 U/L (9-52); AST 25 U/L (14-36); Albumin 3.7 g/dL (3.5-5.0); Alkaline Phosphatase 54 U/L (38-126); Anion Gap 5 mmol/L; Blood Urea Nitrogen 6 mg/dL (7-17); Calcium 10.7 mg/dL (8.4-10.2); Carbon Dioxide 26 mmol/L (22-30); Chloride 110 mmol/L (98-107); Glucose 124 mg/dL (74-99); Potassium 4.3 mmol/L (3.5-5.1); Sodium 141 mmol/L (137-145); Total Bilirubin 0.3 mg/dL (0.2-1.3); Total Protein 6.6 g/dL (6.3-8.2)
[2017-12-18 08:02] LABS: Band Neutrophils % 2 %; Lymphocytes # (M) 0.66 k/uL (1.0-4.8); Metamyelocytes # (M) 0.04 k/uL (0); Metamyelocytes % 3 %; Monocytes # (M) 0.38 k/uL (0-1.0); Neutrophils % (M) 8 %; Nucleated Red Blood Cells 3 /100 WBC (0-0); Total Cells Counted 100
[2017-12-18] MEDS: CEFEPIME 2 GM in SODIUM CHLORIDE 0.9% 50 ML IVPB SCH ×2 (09:28→16:24)
[2017-12-18] MEDS: FILGRASTIM-SNDZ 480 MCG/0.8 ML SYRINGE SQ SCH (09:29)
[2017-12-18] MEDS: HYDROcodone/APAP 5-325MG 1 EACH TAB PO PRN ×3 (09:35→22:23)
--- NOTE | 2017-12-18 11:48 | P.PN ---
Subjective 56-year-old female admitted for neutropenic fever possible source of infection left middle ear infection patient is presently on broad-spectrum antibodies all the cultures are so far negative. Infectious disease evaluated the patient. Patient is still having diarrhea C. diff Roseanne testing is negative C. diff DNA PCR is being obtained if that is negative patient will be started on Imodium and Questran. Patient diarrhea is probably from her chemotherapy medications. Constitutional: Denied any fatigue denied any fever. Cardio vascular: denied any chest pain, palpitations Gastrointestinal denied any nausea vomiting Pulmonary: Denied any shortness of breath cough Neurologic denied any new focal deficits Objective - Vital Signs Vital signs: Vital Signs Temp 98.3 F 12/18/17 05:00 Pulse 64 12/18/17 08:55 Resp 16 12/18/17 08:55 BP 126/64 12/18/17 05:00 Pulse Ox 93 L 12/18/17 05:00 Intake & Output 12/17/17 12/18/17 12/18/17 18:59 06:59 18:59 Intake Total 120 420 Balance 120 420 Intake: Oral 120 420 Other: Voiding Method Toilet Toilet Toilet # Voids 3 3 3 # Bowel Movements 1 - Exam PHYSICAL EXAMINATION: GENERAL: The patient is alert and oriented x3, not in any acute distress. Well developed, well nourished. HEENT: Pupils are round and equally reacting to light. EOMI. No scleral icterus. No conjunctival pallor. Normocephalic, atraumatic. No pharyngeal erythema. No thyromegaly. Patient does have some tenderness in the left mastoid area and in the anterior aspect of sternocleidomastoid CARDIOVASCULAR: S1 and S2 present. No murmurs, rubs, or gallops. PULMONARY: Chest is clear to auscultation, no wheezing or crackles. ABDOMEN: Soft, nontender, nondistended, normoactive bowel sounds. No palpable organomegaly. MUSCULOSKELETAL: No joint swelling or deformity. EXTREMITIES: No cyanosis, clubbing, or pedal edema. NEUROLOGICAL: Gross neurological examination did not reveal any focal deficits. SKIN: No rashes. - Labs CBC & Chem 7: 12/18/17 07:06 12/18/17 07:06 Labs: Abnormal Lab Results - Last 24 Hours (Table) 12/18/17 12/18/17 Range/Units 07:06 07:06 WBC 1.2 L* (3.8-10.6) k/uL RBC 3.67 L (3.80-5.40) m/uL Hgb 11.0 L (11.4-16.0) gm/dL Neutrophils # (Manual) 0.10 L (1.3-7.7) k/uL Lymphocytes # (Manual) 0.66 L (1.0-4.8) k/uL Metamyelocytes # (Man) 0.04 H (0) k/uL Nucleated RBCs 3 H (0-0) /100 WBC Chloride 110 H (98-107) mmol/L BUN 6 L (7-17) mg/dL Glucose 124 H (74-99) mg/dL Calcium 10.7 H (8.4-10.2) mg/dL Microbiology - Last 24 Hours (Table) 12/17/17 21:29 Stool Culture - Preliminary Stool 12/17/17 03:59 Blood Culture - Preliminary Blood No Growth after 24 hours 12/17/17 03:59 Urine Culture - Preliminary Urine,Clean Catch 12/17/17 04:11 Group A Strep Throat Culture - Preliminary Throat Assessment and Plan Plan: -Neutropenic fever and sepsis: Possible sources of her middle ear infection or C. diff colitis. C. diff DNA PCR is pending. Continue with cefepime and vancomycin for now awaiting blood cultures urine cultures. -Neutropenia: Secondary to chemotherapy. -Breast cancer: Triple positive breast cancer, did receive chemotherapy about a week ago -Depression: Continue with duloxetine.
--- NOTE | 2017-12-18 16:28 | P.CONS ---
History of Present Illness - Reason for Consult Consult date: 12/17/17 Febrile neutropenia Requesting physician: Ed Franklin - Chief Complaint fever 1 day - History of Present Illness Patient is a 57-year-old female with past medical history is recurrent for recurrent metastatic breast cancer initially diagnosed about 5 years ago with recent recurrence for the patient did get a MediPort placed about 2 weeks ago patient completed her chemotherapy on 12/09/2017 and she was advised if she develops any fever or any new symptoms to contact her oncologist patient said last night she have a little bit of rigors and chills and was feeling weak she didn't took a temperature however it was 99.4 subsequently the beta spike a fever of 100.7 after midnight patient subsequently presented to [facility] for further evaluation of the same Patient did complain of some pain in her left ear and sore throat that been going on for about 3-4 days patient says she was seen by her oncologist in the outpatient setting and has been treated with oral amoxicillin without any improvement the patient denies significant difficulty swallowing patient denies having any chest pain or shortness of breath. He minimal coverage is dry in nature but denies any abdominal pain no nausea vomiting she has been combining of some diarrhea though her with multiple loose stools no blood or mucus in the stools though, patient was admitted to the hospital she was noticed to have a low white count she was initially started on cefepime Vanco was added and infections disease was consulted for further recommendation regarding antibiotic therapy Review of Systems Review of system Constitutional: The patient complaining of fever or rigors or chills, the patient does complain of weakness. Eyes: No complaint ENT: As per history of present illness Respiratory: No complaint Cardiovascular: No complaint Gastrointestinal: As per history of present illness Genitourinary: No complaint Musculoskeletal: No complaint Integumentary: No complaint Endocrine : No complaint Psycologial : No complaint Neurological: No complaint. Past Medical History Past Medical History: Cancer Additional Past Medical History / Comment(s): BRAIN ANEURYSM 2007 REQUIRED COILING AT [facility]. BREAST CANCER 2012 & 10/2017 History of Any Multi-Drug Resistant Organisms: None Reported Past Surgical History: Bladder Surgery, Breast Surgery, Orthopedic Surgery Additional Past Surgical History / Comment(s): thyroid NODULE REMOVED. BILAT MASTECTOMY W/FLAP AND CHEMO 2012. COLONOSCOPY. D & C. BLADDER SUSPENSION; Shoulder Arthroscopy Past Anesthesia/Blood Transfusion Reactions: No Reported Reaction Past Psychological History: Anxiety, Depression Smoking Status: Former smoker Past Alcohol Use History: None Reported Past Drug Use History: None Reported - Past Family History Mother Family Medical History: No Reported History Father Family Medical History: No Reported History Additional Family Medical History / Comment(s): cousin had breast CA Medications and Allergies Home Medications Medication Instructions Recorded Confirmed Type Cholecalciferol [Vitamin D3] 1,000 unit PO DAILY 10/24/13 12/17/17 History Vitamin B Complex 1 cap PO DAILY 05/05/16 12/17/17 History Aspirin EC [Ecotrin Low Dose] 81 mg PO DAILY 07/22/16 12/17/17 History DULoxetine HCL [Cymbalta] 30 mg PO DAILY 07/22/16 12/17/17 History Ibuprofen [Motrin] 800 mg PO Q8HR PRN #21 tab 07/23/16 12/17/17 Rx ALPRAZolam [Xanax] 0.25 mg PO BID PRN 05/06/17 12/17/17 History Dexamethasone [Hexadrol] 4 mg PO DIRECTED 12/09/17 12/17/17 History Ondansetron [Zofran] 4 mg PO Q8HR PRN 12/09/17 12/17/17 History Acetaminophen [Tylenol] 325 - 650 mg PO Q6H PRN 12/17/17 12/17/17 History Amoxic-Pot Clav 875-125Mg 1 tab PO Q12HR 12/17/17 12/17/17 History [Augmentin 875-125] Famotidine [Pepcid] 40 mg PO BID 12/17/17 12/17/17 History HYDROcodone/APAP 5-325MG [Lodge 1 - 2 tab PO Q4HR PRN 12/17/17 12/17/17 History 5-325] HYDROcodone/APAP 7.5-325MG [Lodge 1 - 2 tab PO Q6H PRN 12/17/17 12/17/17 History 7.5-325] Allergies Allergy/AdvReac Type Severity Reaction Status Date / Time tramadol HCl [From Ultram] Allergy Rash/Hives Verified 12/17/17 12:33 Physical Exam Vitals: Vital Signs Temp Pulse Pulse Resp BP BP Pulse Ox 12/17/17 21:20 98.9 F 86 18 98/61 94 L 12/17/17 18:09 98.3 F 12/17/17 14:54 96 16 12/17/17 14:11 98.1 F 96 16 106/73 96 12/17/17 11:42 91 16 12/17/17 07:17 98.1 F 91 16 125/87 99 12/17/17 05:30 98.0 F 12/17/17 02:36 98.2 F 127 H 20 112/74 97 Intake and Output 12/17/17 12/17/17 12/18/17 14:59 22:59 06:59 Intake Total 120 Balance 120 Intake: Oral 120 Other: Voiding Method Toilet # Voids 3 1 # Bowel Movements 1 General: The patient is awake and alert, in no distress. Skin: no rashes and no masses palpable. Eye: Pupils are equal, round, there is normal conjunctiva bilaterally. Ears, nose, mouth and throat: There are moist mucous membranes and no oral lesions. Neck: The neck is supple, there is no thyromegaly. Cardiovascular: S1-S2 regular rate and rhythm. No murmur. Respiratory: Unlabored breathing clear to auscultation bilaterally Gastrointestinal: Soft, non-distended, non-tender abdomen without masses or organomegaly noted. Neurological: There are no obvious motor or sensory deficits. Coordination appears grossly intact. Speech is normal. Psychiatric: Patient is awake and alert and oriented 3, appropriate mood & affect, normal judgment. Results CBC & Chem 7: 12/18/17 07:06 12/18/17 07:06 Labs: Abnormal Lab Results - Last 24 Hours (Table) 12/17/17 12/17/17 12/17/17 Range/Units 03:59 03:59 03:59 WBC 1.1 L* (3.8-10.6) k/uL Neutrophils # (Manual) 0.00 L (1.3-7.7) k/uL Lymphocytes # (Manual) 0.85 L (1.0-4.8) k/uL Sodium 136 L (137-145) mmol/L Glucose 116 H (74-99) mg/dL POC Glucose (mg/dL) (75-99) mg/dL Calcium 10.5 H (8.4-10.2) mg/dL ALT 53 H (9-52) U/L Urine Blood Small H (Negative) Urine Mucus Rare H (None) /hpf 12/17/17 Range/Units 07:25 WBC (3.8-10.6) k/uL Neutrophils # (Manual) (1.3-7.7) k/uL Lymphocytes # (Manual) (1.0-4.8) k/uL Sodium (137-145) mmol/L Glucose (74-99) mg/dL POC Glucose (mg/dL) 108 H (75-99) mg/dL Calcium (8.4-10.2) mg/dL ALT (9-52) U/L Urine Blood (Negative) Urine Mucus (None) /hpf Microbiology - Last 24 Hours (Table) 12/17/17 03:59 Urine Culture - Preliminary Urine,Clean Catch 12/17/17 04:11 Group A Strep Throat Culture - Preliminary Throat Assessment and Plan (1) Neutropenic fever Current Visit: Yes Status: Acute Code(s): D70.9 - NEUTROPENIA, UNSPECIFIED; R50.81 - FEVER PRESENTING WITH CONDITIONS CLASSIFIED ELSEWHERE SNOMED Code(s) : 469373760 Plan: 1- patient with a history of recurrent metastatic breast cancer in a patient now being admitted hospital with febrile neutropenia patient who did have a fever 100.7 along with neutropenia and the patient was white count is 1.1 but only 6% neutrophils, patient symptom predominantly has been a URI with left ear pain and sore throat that seemed to have failed to respond to the outpatient oral amoxicillin therapy 2- patient who do have a diarrhea question of antibiotic associated or related to her chemotherapy infectious diarrhea needs to be ruled out. 3- stool for C. diff , blood cultures, urine cultures and chest x-rays to complete the workup 4- patient will be treated broadly with cefepime 2 g every 8 hour along with vancomycin pharmacy dosing worsening kidney function closely, that her culture finalized and condition stabilized We will follow-up on her clinical condition and culture to further adjust her medication if needed Time with Patient: Greater than 30
[2017-12-18] MEDS: CHOLESTYRAMINE (WITH SUGAR) 4 GM PACKET PO SCH (16:32)
[2017-12-18] MEDS ORDERED: VANCOMYCIN TROUGH DUE 1 EACH MISC MISCELLANE ONE (17:00)
[2017-12-18] MEDS: ALPRAZolam 0.25 MG TAB PO PRN (18:31)
--- NOTE | 2017-12-18 22:57 | PN ---
PROGRESS NOTE DATE OF SERVICE: 12/18/2017. REASON FOR FOLLOWUP: Febrile neutropenia. INTERVAL HISTORY: The patient is afebrile. She is complaining of sore throat and pain to the left knee area, but denies any chest pain or shortness of breath or cough. No abdominal pain. She continues to have diarrhea with the loose stools. The stool for C diff has been negative. EXAMINATION: Blood pressure is 126/64, pulse of 64, temperature 98.3. She is 93% on room air. General description is a middle-aged female up in the bed in no distress. Respiratory system: Unlabored breathing. Clear to auscultation. Heart S1, S2. Regular rate and rhythm. Abdomen soft. No tenderness. LABS: White count 1.2, neutrophil , blood culture has been negative. Stool cultures report pending. So far C. dif is negative. DIAGNOSTIC IMPRESSION AND PLAN: Patient admitted to the hospital with febrile neutropenia. Currently broadly covered with cefepime and vanco that will continued while waiting for the culture to finalize. We will add mildly decongestant for her URI symptoms. Melissa has been orders for diarrhea. We will continue to monitor her clinical course closely. Continue supportive care. MMODL / IJN: [id number] /
--- NOTE | 2017-12-18 23:37 | P.PN ---
Subjective Progress Note Date: 12/18/17 Principal diagnosis: Febrile Neutropenia Still with complaints of diarrhea, C-Diff negative, Stool culture pending. Questran has been started Objective - Vital Signs Vital signs: Vital Signs Temp 98.3 F 12/18/17 05:00 Pulse 64 12/18/17 14:31 Resp 16 12/18/17 14:31 BP 126/64 12/18/17 05:00 Pulse Ox 93 L 12/18/17 05:00 Intake & Output 12/18/17 12/18/17 12/19/17 06:59 18:59 06:59 Intake Total 420 240 Balance 420 240 Intake: Oral 420 240 Other: Voiding Method Toilet Toilet # Voids 3 3 # Bowel Movements 1 4 - Exam Gen: Alert and Oriented x2, NAD Head: NC,NT Neck: Supple, Trachea Midline Mouth: No Thrush present, Erythema and edema noted tongue, gumline and poeterior pharynx consistent with a grade 2 mucocyitis Heart - Tachy, Reg Lungs: CTA Bilateral, no increased effort Abdomen, Soft, ND, NT Extremities: No edema. No rashes No neurological deficits noted - Labs CBC & Chem 7: 12/18/17 07:06 12/18/17 07:06 Labs: Abnormal Lab Results - Last 24 Hours (Table) 12/18/17 12/18/17 Range/Units 07:06 07:06 WBC 1.2 L* (3.8-10.6) k/uL RBC 3.67 L (3.80-5.40) m/uL Hgb 11.0 L (11.4-16.0) gm/dL Neutrophils # (Manual) 0.10 L (1.3-7.7) k/uL Lymphocytes # (Manual) 0.66 L (1.0-4.8) k/uL Metamyelocytes # (Man) 0.04 H (0) k/uL Nucleated RBCs 3 H (0-0) /100 WBC Chloride 110 H (98-107) mmol/L BUN 6 L (7-17) mg/dL Glucose 124 H (74-99) mg/dL Calcium 10.7 H (8.4-10.2) mg/dL Microbiology - Last 24 Hours (Table) 12/17/17 03:59 Urine Culture - Final Urine,Clean Catch 12/17/17 21:29 Stool Culture - Preliminary Stool 12/17/17 03:59 Blood Culture - Preliminary Blood No Growth after 24 hours Assessment and Plan Plan: Assessment and Recommendations: 1. Recurrent Metastatic Breast Cancer - Triple Positive - Recently restarted on therapy with Taxotere, Herceptin, and Perjeta - Last treatment on 12/09/17 - Chemotherapy on Hold until acute situation resolves - Add Neulasta to continued treatments as outpatient 2. Febrile Neutropenia: Afebrile since admission - Neuts are 0.1, Continue Zarxio - Await Huizar Culture results - Cefepime ordered, will add vancomycin for full coverage of neutropenic patient and then defer to Infectious disease further management - ID consulted 3. Grade 2 Mucocitis: Improving - No Thrush Noted, culture pending - Christa with added dexamethasone to swish QID - Re-educated oral mouth care on chemotherapy 4. GERD: - On Pepcid at this time, await stool cultures and if c diff negative I would continue her as outpatient on PPI with CHemotherapy and Steroids 5. Diarrhea unrelieved with Imodium - Obtain Stool Cultures and C-diff - Add Questran - If Stool studies negative add Lomotil PRN - Etiology likely Antibodies and chemotherapy - Ok for lomotil with persistent diarrhea. 6. DISPO PLan: - Diarrhea Controlled - Huizar Culture Results - Afebrile - Neuts greater than 0.6, WBC greater than 1.5 - Per Primary Team THank you for allowing us to participate in care of your patient Marycarmen Ceballos NP
[2017-12-19] MEDS: CEFEPIME 2 GM in SODIUM CHLORIDE 0.9% 50 ML IVPB SCH ×2 (00:17→08:58)
[2017-12-19 00:45] VITALS: PULSE 88
[2017-12-19] MEDS: VANCOMYCIN 1,250 MG in SODIUM CHLORIDE 0.9% 250 ML IVPB SCH ×2 (02:17→11:37)
[2017-12-19 06:06] VITALS: BP 121/66; RESP 16; TEMP 96.2
[2017-12-19 08:18] LABS: HCT 37.8 % (34.0-46.0); HGB 12.5 gm/dL (11.4-16.0); MCH 30.5 pg (25.0-35.0); MCV 92.3 fL (80.0-100.0); Mean Platelet Volume 6.8; Platelet Count 212 k/uL (150-450); RBC 4.09 m/uL (3.80-5.40); RDW 12.9 % (11.5-15.5); WBC 5.1 k/uL (3.8-10.6)
[2017-12-19 08:29] LABS: ALT 44 U/L (9-52); AST 30 U/L (14-36); Alkaline Phosphatase 66 U/L (38-126); Anion Gap 8 mmol/L; Blood Urea Nitrogen 5 mg/dL (7-17); Calcium 10.7 mg/dL (8.4-10.2); Carbon Dioxide 26 mmol/L (22-30); Chloride 108 mmol/L (98-107); Glucose 97 mg/dL (74-99); Potassium 4.1 mmol/L (3.5-5.1); Sodium 142 mmol/L (137-145); Total Bilirubin 0.6 mg/dL (0.2-1.3); Total Protein 7.2 g/dL (6.3-8.2)
[2017-12-19] MEDS: FAMOTIDINE 20 MG TAB PO SCH (08:59)
[2017-12-19] MEDS: ENOXAPARIN 40 MG/0.4 ML SYRINGE SQ SCH (08:59)
[2017-12-19] MEDS: DULoxetine HCL 30 MG CAPSULE.DR PO SCH (08:59)
[2017-12-19] MEDS: ASPIRIN 81 MG PO SCH (08:59)
[2017-12-19] MEDS ORDERED: LORATADINE-PSEUDOEPH 5-120 MG 1 EACH TAB.ER.12H PO SCH (09:00)
[2017-12-19] MEDS: MAG HYDROX/AL HYDROX/SIMETH 30 ML, diphenhydrAMINE ELIXIR 75 MG, LIDOCAINE VISCOUS 30 M... PO SCH ×4 (09:02)
[2017-12-19] MEDS: CHOLESTYRAMINE (WITH SUGAR) 4 GM PACKET PO SCH (09:03)
[2017-12-19 09:04] LABS: Band Neutrophils % 18 %; Blast Cells # (M) 0.05 k/uL (0); Myelocytes # (M) 0.82 k/uL (0); Myelocytes % 16 %; Nucleated Red Blood Cells 0 /100 WBC (0-0)
[2017-12-19 09:08] LABS: Plasma Cells # (M) 0.05 k/uL (0)
[2017-12-19] MEDS: HYDROcodone/APAP 5-325MG 1 EACH TAB PO PRN (09:08)
[2017-12-19 09:09] LABS: Lymphocytes # (M) 1.84 k/uL (1.0-4.8); Monocytes # (M) 0.92 k/uL (0-1.0); Neutrophils % (M) 12 %; Total Cells Counted 200
[2017-12-19] MEDS: FILGRASTIM-SNDZ 480 MCG/0.8 ML SYRINGE SQ SCH (09:18)
[2017-12-19] MEDS: SODIUM CHLORIDE 0.9% 1,000 ML IV SCH (11:25)
--- NOTE | 2017-12-19 11:44 | P.DS ---
Providers Date of admission: 12/17/17 05:38 Attending physician: Shaila Navarro Consults: 12/17/17 05:27 Consult Physician Routine Consulting Provider: Karuna Penny Consult Reason/Comments: established patient, neutropenic fever Do you want consulting provider notified?: Yes Consult Physician Urgent Consulting Provider: Dania Montalvo Consult Reason/Comments: neutropenic fever Do you want consulting provider notified?: Yes Primary care physician: [facility] Course: 56-year-old female admitted for neutropenic fever possible source of infection left middle ear infection patient is presently on broad-spectrum antibodies all the cultures are so far negative. Infectious disease evaluated the patient. Patient is still having diarrhea C. diff Roseanne testing is negative C. diff DNA PCR is being obtained if that is negative patient will be started on Imodium and Questran. Patient diarrhea is probably from her chemotherapy medications. 12/19/2017 Patient diarrhea improved with Questran patient will continue Imodium patient is comparing of worsening left here congestion but the the year exam didn't show much of abnormality although there is some redness in the left ear. Patient will follow the year with ENT as an outpatient. Once cleared by infectious disease patient can be discharged to follow up with the oncology, infectious disease, ENT as an outpatient along with PCP PHYSICAL EXAMINATION: GENERAL: The patient is alert and oriented x3, not in any acute distress. Well developed, well nourished. HEENT: Pupils are round and equally reacting to light. EOMI. No scleral icterus. No conjunctival pallor. Normocephalic, atraumatic. No pharyngeal erythema. No thyromegaly. Redness in the left tympanic membrane CARDIOVASCULAR: S1 and S2 present. No murmurs, rubs, or gallops. PULMONARY: Chest is clear to auscultation, no wheezing or crackles. ABDOMEN: Soft, nontender, nondistended, normoactive bowel sounds. No palpable organomegaly. MUSCULOSKELETAL: No joint swelling or deformity. EXTREMITIES: No cyanosis, clubbing, or pedal edema. NEUROLOGICAL: Gross neurological examination did not reveal any focal deficits. SKIN: No rashes. Assessment and Plan Plan: -Neutropenic fever and sepsis: Source is unclear can be in the left middle ear, antibiotics as per infectious disease and the her diarrhea is secondary to mucositis or side effects from her chemo medications. Patient will follow up with ENT as an outpatient. -Neutropenia: Secondary to chemotherapy. -Breast cancer: Triple positive breast cancer, did receive chemotherapy about a week ago -Depression: Continue with duloxetine. -Diarrhea: Secondary to mucositis or secondary to her chemotherapeutic medications. Patient Condition at Discharge: Stable Plan - Discharge Summary New Discharge Prescriptions: New Diphenoxylate HCl/Atropine [Lomotil 2.5-0.025 mg Tablet] 1 - 2 tab PO QID PRN 3 Days #24 tab PRN Reason: Diarrhea Cholestyramine (with Sugar) [Questran Packet] 4 gm PO BID@1000,1800 #30 packet Continue Cholecalciferol [Vitamin D3] 1,000 unit PO DAILY Vitamin B Complex 1 cap PO DAILY DULoxetine HCL [Cymbalta] 30 mg PO DAILY Aspirin EC [Ecotrin Low Dose] 81 mg PO DAILY Ibuprofen [Motrin] 800 mg PO Q8HR PRN #21 tab PRN Reason: Pain ALPRAZolam [Xanax] 0.25 mg PO BID PRN PRN Reason: Anxiety Ondansetron [Zofran] 4 mg PO Q8HR PRN PRN Reason: Nausea Dexamethasone [Hexadrol] 4 mg PO DIRECTED Famotidine [Pepcid] 40 mg PO BID Acetaminophen [Tylenol] 325 - 650 mg PO Q6H PRN PRN Reason: Fever And/ Or Pain HYDROcodone/APAP 7.5-325MG [Dexter 7.5-325] 1 - 2 tab PO Q6H PRN PRN Reason: Pain HYDROcodone/APAP 5-325MG [Dexter 5-325] 1 - 2 tab PO Q4HR PRN PRN Reason: Pain Discontinued Amoxic-Pot Clav 875-125Mg [Augmentin 875-125] 1 tab PO Q12HR Discharge Medication List Cholecalciferol [Vitamin D3] 1,000 unit PO DAILY 10/24/13 [History] Vitamin B Complex 1 cap PO DAILY 05/05/16 [History] Aspirin EC [Ecotrin Low Dose] 81 mg PO DAILY 07/22/16 [History] DULoxetine HCL [Cymbalta] 30 mg PO DAILY 07/22/16 [History] Ibuprofen [Motrin] 800 mg PO Q8HR PRN #21 tab 07/23/16 [Rx] ALPRAZolam [Xanax] 0.25 mg PO BID PRN 05/06/17 [History] Dexamethasone [Hexadrol] 4 mg PO DIRECTED 12/09/17 [History] Ondansetron [Zofran] 4 mg PO Q8HR PRN 12/09/17 [History] Acetaminophen [Tylenol] 325 - 650 mg PO Q6H PRN 12/17/17 [History] Famotidine [Pepcid] 40 mg PO BID 12/17/17 [History] HYDROcodone/APAP 5-325MG [[place]exter 5-325] 1 - 2 tab PO Q4HR PRN 12/17/17 [History] HYDROcodone/APAP 7.5-325MG [Dexter 7.5-325] 1 - 2 tab PO Q6H PRN 12/17/17 [ History] Cholestyramine (with Sugar) [Questran Packet] 4 gm PO BID@1000,1800 #30 packet 12/19/17 [Rx] Diphenoxylate HCl/Atropine [Lomotil 2.5-0.025 mg Tablet] 1 - 2 tab PO QID PRN 3 Days #24 tab 12/19/17 [Rx] Follow up Appointment(s)/Referral(s): Igor Bland DO [Primary Care Provider] - 3 Days Karuna Penny MD [STAFF PHYSICIAN] - 12/23/17 3:30 pm Patient Instructions/Handouts: Diphenoxylate/Atropine (By mouth), Cholestyramine (By mouth), Breast Cancer in Women (DC), Neutropenia (DC) Activity/Diet/Wound Care/Special Instructions: diet as tolerated regular diet activity limited until follow up Discharge Disposition: HOME SELF-CARE
--- NOTE | 2017-12-19 15:41 | P.PN ---
Subjective Progress Note Date: 12/19/17 Principal diagnosis: Febrile Neutropenia Blood counts started to recover, C-Diff negative, Stool culture pending. Questran has been started Mucocytis improving, Left pain near ear and lymph node still, improving Objective - Vital Signs Vital signs: Vital Signs Temp 96.2 F L 12/19/17 05:00 Pulse 88 12/19/17 05:00 Resp 16 12/19/17 05:00 BP 121/66 12/19/17 05:00 Pulse Ox 93 L 12/19/17 05:00 Intake & Output 12/18/17 12/19/17 12/19/17 18:59 06:59 18:59 Intake Total 240 1420 Balance 240 1420 Weight 63.503 kg Intake: Intake, IV Titration 700 Amount Cefepime 2 gm In Sodium 50 Chloride 0.9% 50 ml @ 100 mls/hr IVPB Q8HR [facility] Rx# :[id number] Sodium Chloride 0.9% 1, 400 000 ml @ 100 mls/hr IV . Q10H [facility] Rx#:[id number] Vancomycin 1,250 mg In 250 Sodium Chloride 0.9% 250 ml @ 125 mls/hr IVPB Q8H [facility] Rx#:[id number] Oral 240 720 Other: Voiding Method Toilet Toilet # Voids 3 1 # Bowel Movements 4 - Exam Gen: Alert and Oriented x2, NAD Head: NC,NT Neck: Supple, Trachea Midline Mouth: No Thrush present, Erythema and edema noted tongue, gumline and poeterior pharynx consistent with a grade 2 mucocyitis Heart - Tachy, Reg Lungs: CTA Bilateral, no increased effort Abdomen, Soft, ND, NT Extremities: No edema. No rashes No neurological deficits noted - Labs CBC & Chem 7: 12/19/17 07:55 12/19/17 07:55 Labs: Abnormal Lab Results - Last 24 Hours (Table) 12/19/17 12/19/17 Range/Units 07:55 07:55 Myelocytes # (Manual) 0.82 H (0) k/uL Blast Cells # (Man) 0.05 H (0) k/uL Plasma Cell # (Manual) 0.05 H (0) k/uL Chloride 108 H (98-107) mmol/L BUN 5 L (7-17) mg/dL Calcium 10.7 H (8.4-10.2) mg/dL Microbiology - Last 24 Hours (Table) 12/17/17 03:59 Blood Culture - Preliminary Blood No Growth after 48 hours 12/17/17 03:59 Urine Culture - Final Urine,Clean Catch 12/17/17 21:29 Stool Culture - Preliminary Stool Assessment and Plan Plan: Assessment and Recommendations: 1. Recurrent Metastatic Breast Cancer - Triple Positive - Recently restarted on therapy with Taxotere, Herceptin, and Perjeta - Last treatment on 12/09/17 - Chemotherapy on Hold until acute situation resolves - Add Neulasta to continued treatments as outpatient 2. Febrile Neutropenia: Afebrile since admission - Resolved - Neuts are 0.1, Continue Zarxio - Await Huizar Culture results - Cefepime ordered, will add vancomycin for full coverage of neutropenic patient and then defer to Infectious disease further management - ID consulted 3. Grade 2 Mucocitis: Improving - No Thrush Noted, culture pending - Kools with added dexamethasone to swish QID - Re-educated oral mouth care on chemotherapy 4. GERD: - On Pepcid at this time, await stool cultures and if c diff negative I would continue her as outpatient on PPI with CHemotherapy and Steroids 5. Diarrhea unrelieved with Imodium - Obtain Stool Cultures and C-diff - Add Questran - If Stool studies negative add Lomotil PRN - Etiology likely Antibodies and chemotherapy - Ok for lomotil with persistent diarrhea. 6. DISPO PLan: - Diarrhea Controlled - Lomotil and questran at discharge please - PPI on DIscharge - Appt made in office with Marycarmen Ceballos NP for CBC check and possible Granix on Tuesday12/20/17 THank you for allowing us to participate in care of your patient Physician Attestation: I have completed the full history and physical of this patient and agree with above dictation by Marycarmen Ceballos NP. Dictated as a scribe
--- NOTE | 2017-12-19 20:59 | PN ---
PROGRESS NOTE DATE OF SERVICE: 12/19/2017. REASON FOR FOLLOWUP: Febrile neutropenia. INTERVAL HISTORY: The patient is currently afebrile. She is feeling better. The left ear pain has decreased intensity. Denies any URI symptoms. No chest pain, shortness of breath or cough. No abdominal pain and diarrhea has improved. EXAMINATION: Blood pressure is 120/66 with a pulse of 83, temperature 98.2. She is 93% on room air. General description is a middle-aged female up in the room in no distress. HEENT examination: No pallor or scleral icterus. No lymphadenopathy. Lungs unlabored breathing. Clear to auscultation anteriorly. Heart S1, S2. Regular rate and rhythm. Abdomen soft, no tenderness. LABS: Hemoglobin is 12.5, white count 5.1 with a BUN of 5, creatinine 0.53. DIAGNOSTIC IMPRESSION AND PLAN: Patient admitted to the hospital with febrile neutropenia. No clear focus of infection. has been left ear pain. Apparently the left ear has been examined by the oncologist with no evidence of otitis media. Her white count has normalized. Stool for C difficile was negative. She will be given a short course of oral Levaquin, also advised to take Questran but as needed. Continue supportive care. MMODL / IJN: [id number] /
== END 2017-12-19 15:35 | disposition home or self-care (01) | DRG 872 ==
LOC: EC 02:32 → 5ONC 05:38
PROVIDERS: ADMIT Hospitalist; ATTEND Hospitalist
DX: A41.9 Sepsis, unspecified organism (principal); K92.81 Gastrointestinal mucositis (ulcerative); C77.9 Secondary and unspecified malignant neoplasm of lymph node, unspecified; D70.1 Agranulocytosis secondary to cancer chemotherapy; F32.9 Major depressive disorder, single episode, unspecified; F41.9 Anxiety disorder, unspecified; H66.92 Otitis media, unspecified, left ear; T45.1X5A Adverse effect of antineoplastic and immunosuppressive drugs, initial encounter; Y92.9 Unspecified place or not applicable; K21.9 Gastro-esophageal reflux disease without esophagitis; M81.0 Age-related osteoporosis without current pathological fracture; K76.9 Liver disease, unspecified; J02.9 Acute pharyngitis, unspecified; R50.81 Fever presenting with conditions classified elsewhere; R19.7 Diarrhea, unspecified; M25.562 Pain in left knee; Z79.899 Other long term (current) drug therapy; Z79.82 Long term (current) use of aspirin; Z17.0 Estrogen receptor positive status [ER+]; Z87.891 Personal history of nicotine dependence; Z85.3 Personal history of malignant neoplasm of breast; Z90.13 Acquired absence of bilateral breasts and nipples; Z88.5 Allergy status to narcotic agent; Z87.898 Personal history of other specified conditions
CPT/HCPCS: 36415; 80053; 80202; 81001; 83605; 84484; 85025; 85610; 85730; 87040; 87045; 87046; 87081; 87086; 87324; 87430; 93005; 96361; 96374; 99285

== ENCOUNTER → 2018-02-01 | Outpatient (CLI) | payer MEDICAID ==
--- NOTE | 2018-02-01 13:23 | ECHOF ---
Referral Reason:C50.912 breast ca MEASUREMENTS -------- HEIGHT: 149.9 cm WEIGHT: 64.0 kg BP: RVIDd: 2.5 cm (< 3.3) IVSd: 1.1 cm (0.6 - 1.1) LVIDd: 4.9 cm (3.9 - 5.3) LVPWd: 1.2 cm (0.6 - 1.1) IVSs: 1.2 cm LVIDs: 3.4 cm LVPWs: 1.2 cm LAESV Index (A-L): 23.02 ml/m Ao Diam: 3.4 cm (2.0 - 3.7) AV Cusp: 1.3 cm (1.5 - 2.6) LA Diam: 2.5 cm (2.7 - 3.8) EPSS: 0.8 cm MV E Ke: 1.02 m/s MV DecT: 228 ms MV A Ke: 0.90 m/s MV E/A Ratio: 1.13 RAP: 5.00 mmHg RVSP: 27.74 mmHg MV EF SLOPE: 126.25 mm/s (70 - 150) MV EXCURSION: 1.82 cm (> 18.000) FINDINGS -------- Sinus rhythm. This was a technically good study. The left ventricular size is normal. There is mild concentric left ventricular hypertrophy. Overa ll left ventricular systolic function is mildly impaired with, an EF between 45 - 50 %. Anterseptal Hypokinesis The right ventricle is normal in size and function. Normal LA size by volume 22+/-6 ml/m2. The right atrium is normal in size. Aortic valve is trileaflet and is mildly thickened. Trace amount of aortic regurgitation. There is no evidence of aortic stenosis. The mitral valve leaflets are mildly thickened. There is trace to mild mitral regurgitation. Trace tricuspid regurgitation present. Right ventricular systolic pressure is normal at < 35 mmHg. There is no evidence of pulmonary hypertension. Trace/mild (physiologic) pulmonic regurgitation. The aortic root size is normal. Normal inferior vena cava with normal inspiratory collapse consistent with estimated right atrial pre ssure of 5 mmHg. There is no pericardial effusion. CONCLUSIONS -------- 1. Sinus rhythm. 2. This was a technically good study. 3. The left ventricular size is normal. 4. There is mild concentric left ventricular hypertrophy. 5. Overall left ventricular systolic function is mildly impaired with, an EF between 45 - 50 %. 6. Anterseptal Hypokinesis 7. Normal LA size by volume 22+/-6 ml/m2. 8. Aortic valve is trileaflet and is mildly thickened. 9. Trace amount of aortic regurgitation. 10. The mitral valve leaflets are mildly thickened. 11. There is trace to mild mitral regurgitation. 12. Trace tricuspid regurgitation present. 13. Right ventricular systolic pressure is normal at < 35 mmHg. 14. There is no evidence of pulmonary hypertension. 15. Trace/mild (physiologic) pulmonic regurgitation. 16. The aortic root size is normal. 17. There is no pericardial effusion. [employer]: Valdemar Adams RDCS
== END | disposition home or self-care (01) ==
LOC: RADECHMAIN 08:27
PROVIDERS: ATTEND Internal Medicine Hematology & Oncology
DX: Z01.818 Encounter for other preprocedural examination (principal); I08.0 Rheumatic disorders of both mitral and aortic valves; C50.912 Malignant neoplasm of unspecified site of left female breast
CPT/HCPCS: 93306

== ENCOUNTER → 2018-02-24 | Outpatient (CLI) | payer MEDICAID ==
--- NOTE | 2018-02-24 10:46 | NM ---
EXAMINATION TYPE: NM rest muga cardiac DATE OF EXAM: 02/24/2018 COMPARISON: NONE HISTORY: Chemotherapy Following administration of 3ml PYP 24.7 mCi Tc 99m Sodium Pertechnete. Images were obtained post inj ection. Gated equilibrium images were acquired in the anterior and left anterior oblique (SINHALA) projections. Computer estimated left ventricular ejection fraction (LVEF) was calculated from the total counts in the end-systolic and end-diastolic left ventricular regions with background correction. FINDINGS: Morphology of the left ventricle is grossly normal with left ventricular ejection fraction calculated at 45.4% (Normal 50-80%). IMPRESSION: Calculated ejection fraction is 45.4%.
== END | disposition home or self-care (01) ==
LOC: RADNMMAIN 09:02
PROVIDERS: ATTEND Internal Medicine Hematology & Oncology
DX: C50.912 Malignant neoplasm of unspecified site of left female breast (principal); Z88.6 Allergy status to analgesic agent; Z91.048 Other nonmedicinal substance allergy status; Z79.899 Other long term (current) drug therapy
CPT/HCPCS: 78472; A9560

== ENCOUNTER → 2018-03-18 | Outpatient (CLI) | payer MEDICAID ==
--- NOTE | 2018-03-20 13:51 | PE ---
EXAMINATION TYPE: PET CT fusion skull to thigh DATE OF EXAM: 03/18/2018 COMPARISON: 12/03/2017 HISTORY: Left breast cancer. Subsequent exam. Breast cancer was diagnosed in 2011 with chemotherapy i n 2011 and bilateral mastectomy 2012. Recent chemotherapy elbow 03/09/2018. TECHNIQUE: Following the intravenous administration of 15.35 mCi of F-18 FDG, whole body images are performed from the skull base to the midthigh. Images are reviewed on the computer in the coronal, a xial, and sagittal planes. Reconstructed rotating images are created on independent workstation and reviewed on the computer. A localization and attenuation correction CT is performed in conjunction with the PET scan. SCAN: Subsequent FINDINGS: Mediastinal background: 1.4 Abdominal background: 2.62 SKULL BASE AND NECK: No suspicious hypermetabolic uptake CHEST, MEDIASTINUM, AND HILAR REGION: There is marked response to treatment. The left axillary conglo meration of lymph nodes that is largest measured on series 3 image 61 currently measures approximatel y 1.4 x 2.2 cm and previously measured 5.4 x 3.5 cm. This demonstrates a maximum SUV of 2.22 and prev iously demonstrated a maximum SUV of 15.79. Inferior to the known biopsy-proven metastatic lymph node containing a biopsy marker on image 65 is barely perceptible. Conglomeration of nodes posterior to t his measured approximately 2.1 x 0.9 cm. Similar-appearing 4 mm short axis far posterior upper outer quadrant axillary tail lymph node on image 85 is unchanged. There are no longer hypermetabolic lymph nodes that are intrathoracic. Right axilla remains unremarkable. The previously seen abnormal intrathoracic lymph nodes are also markedly decreased in size with the p revious pretracheal 2.1 x 1.5 cm lymph node now measuring 1.2 x 0.8 cm in the previous subcarinal lym ph node measured 1.8 x 2.8 cm now measures 1.4 x 1.8 cm. ABDOMEN AND PELVIS: The previously seen suspicious hepatic lesions on the prior exam no longer hyperm etabolic. The left hepatic lobe lesion seen on axial image 113 measuring 1.5 cm on the prior exam and remains stable in size. No CT correlate is seen for the other previously demonstrated hepatic lesion s. No hypermetabolic hepatic activity is currently seen on today's exam. OSSEOUS STRUCTURES: There is diffuse mild hypermetabolic uptake throughout the osseous structures wit h a maximum SUV of 3.[address]: Intracranial aneurysm coil clips creates moderate artifact and are partially visualized. Pa ranasal sinuses are well aerated. Orbits are symmetric. Dental artifact also creates spray artifact p artially limiting evaluation. Right-sided Mediport is similar in position to the prior. Bilateral TRAM flap breast reconstruction has been performed. Mild background emphysematous changes a gain seen. Trace pericardial effusion is again noted. Minimal atelectasis is seen within the dependen t lungs. Bilateral pleural parenchymal scarring is also seen within the lungs. IMPRESSION: 1. Response to treatment. Marked decrease in size and hypermetabolic activity of the left axillary ad enopathy previously measuring up to 5.4 cm and now measuring up to 2.2 cm. Previous maximum SUV of 15 .79 with current maximum of 2.22. Additionally the suspicious hepatic lesions and intrathoracic adeno alex seen on the prior PET no longer demonstrate hypermetabolic activity. 2. Diffuse mild hypermetabolic activity throughout the osseous structures is suggestive of bone marro w stimulation/posttreatment change.
== END | disposition home or self-care (01) ==
LOC: RADPETMAIN 09:32
PROVIDERS: ATTEND Internal Medicine Hematology & Oncology
DX: C50.812 Malignant neoplasm of overlapping sites of left female breast (principal); R59.0 Localized enlarged lymph nodes; R93.7 Abnormal findings on diagnostic imaging of other parts of musculoskeletal system
CPT/HCPCS: 78815; A9552

== ENCOUNTER → 2018-06-17 | Outpatient (CLI) | payer MEDICAID ==
--- NOTE | 2018-06-17 10:46 | PE ---
EXAMINATION TYPE: PET CT fusion skull to thigh DATE OF EXAM: 06/17/2018 COMPARISON: Prior PET/CT March 18, 2018 and older study December 03, 2017 HISTORY: Breast cancer progress study completed chemotherapy in November 2017 TECHNIQUE: Following the intravenous administration of 14.87 mCi of F-18 FDG, whole body images are performed from the skull base to the midthigh. Images are reviewed on the computer in the coronal, a xial, and sagittal planes. Reconstructed rotating images are created on independent workstation and reviewed on the computer. A noncontrast PET scan. SCAN: Subsequent Scan FINDINGS: SKULL BASE AND NECK: No new areas of hypermetabolic uptake identified. CHEST, MEDIASTINUM, AND HILAR REGION: There is recurrent hypermetabolic uptake and enlargement of lef t axillary masses. Biopsy clip redemonstrated axial image 68. Largest mass measures 1.9 x 1.7 cm on a xial image 70 just posterior-inferior to clip increase in size from prior study, max SUV is 11.05 on current study. There is superior medial extension posterior to the pectoralis muscles axial image 58 with new 9 mm hypermetabolic lymph node, max SUV is 4.22. The right pericarinal lymph node measures 1.1 x 0.7 cm current study image 67 with minimal hypermetab olic uptake on current study max SUV is 1.8. No suspicious new hypermetabolic uptake in the right breast or axilla. No suspicious new hypermetabol ic uptake in the left breast or remainder of the thorax. ABDOMEN AND PELVIS: Normal excretion in kidneys and bladder is present. There is suspicious hypermeta bolic focus inferior left hepatic lobe without definitive CT correlate, this is seen posteriorly axia l image 113 with max SUV of 10.56. Recurrent active hepatic metastatic disease likely present based o n correlation with older PET/CT from November. Otherwise perihepatic adenopathy is likely. This could b e further evaluated with multi phase CT/MRI if desired to localize. No additional areas of hypermetab olic uptake seen. OSSEOUS STRUCTURES: No new areas of hypermetabolic uptake identified. Mild uptake right shoulder leve l is presumed degenerative unchanged from prior studies. OTHER CT: Intracranial aneurysm coil is not included in nofux-eo-mpbi on current study. There is stable right internal jugular Mediport catheter. Background underlying emphysematous change is redemonstrated. Heart size is mildly enlarged. Tiny per icardial effusion redemonstrated. Coils ventral wall hernia repair surgery are redemonstrated anteriorly. IMPRESSION: Recurrent active neoplasm identified left axillary region. Suspect recurrent active infer ior left hepatic lobe metastatic focus. Overall disease progression or active disease recurrence from most recent PET/CT.
== END ==
LOC: RADPETMAIN 07:32
PROVIDERS: ATTEND Internal Medicine Hematology & Oncology
DX: C50.812 Malignant neoplasm of overlapping sites of left female breast (principal)
CPT/HCPCS: 78815; A9552

== ENCOUNTER 2018-07-30 12:11 | Emergency (ER) | payer MEDICAID ==
[2018-07-30] MEDS ORDERED: LIDOCAINE/EPINEPHR/TETRACAINE 5 ML BOTTLE TOPICAL ONE (13:04)
[2018-07-30] MEDS ORDERED: OXYMETAZOLINE 0.05% NASL SPRAY 1 SPRAY BOTTLE NASAL STA (13:04)
--- NOTE | 2018-07-30 14:14 | ED ---
ENT HPI - General Chief complaint: ENT Stated complaint: Nosebleed Time Seen by Provider: 07/30/18 12:33 Source: patient, RN notes reviewed, old records reviewed Mode of arrival: ambulatory Limitations: no limitations - History of Present Illness Initial comments: Patient is a 58-year-old female presents emergency today with a nosebleed. She reports is going on for approximately an hour at home and would not stop. Patient states upon arriving here and has slowed down significantly. Patient states that she's had a sore in her nose after receiving chemotherapy and radiation. Patient has had no fevers or chills. Denies any lightheadedness. - Related Data Home Medications Medication Instructions Recorded Confirmed Cholecalciferol [Vitamin D3] 1,000 unit PO DAILY 10/24/13 08/04/18 Vitamin B Complex 1 cap PO DAILY 05/05/16 08/04/18 DULoxetine HCL [Cymbalta] 60 mg PO BID 07/22/16 08/04/18 ALPRAZolam [Xanax] 0.25 mg PO BID PRN 05/06/17 08/04/18 Acetaminophen [Tylenol] 325 - 650 mg PO Q6H PRN 12/17/17 08/04/18 HYDROcodone/APAP 7.5-325MG [Kirk 1 - 2 tab PO Q6H PRN 12/17/17 08/04/18 7.5-325] Previous Rx's Medication Instructions Recorded Ibuprofen [Motrin] 800 mg PO Q8HR PRN #21 tab 07/23/16 Diphenoxylate HCl/Atropine 1 - 2 tab PO QID PRN 3 Days #24 tab 12/19/17 [Lomotil 2.5-0.025 mg Tablet] Mupirocin 2% Oint [Bactroban 2% 1 applic NASAL TID #1 tube 07/30/18 Oint] Allergies Allergy/AdvReac Type Severity Reaction Status Date / Time tramadol HCl [From [facility]] Allergy Rash/Hives Verified 08/04/18 08:46 Review of Systems ROS Statement: Those systems with pertinent positive or pertinent negative responses have been documented in the HPI. ROS Other: All systems not noted in ROS Statement are negative. Past Medical History Past Medical History: Cancer Additional Past Medical History / Comment(s): BRAIN ANEURYSM 2007 REQUIRED COILING AT [facility]. BREAST CANCER 2012 & 10/2017. HOSPITALIZED RECENTLY FOR FEVER AND LOW NEUTROPHILS. History of Any Multi-Drug Resistant Organisms: ESBL Date of last positivie culture/infection: 01/05/18 MDRO Source:: ESBL URINE Past Surgical History: Bladder Surgery, Breast Surgery, Orthopedic Surgery, Tubal Ligation Additional Past Surgical History / Comment(s): thyroid NODULE REMOVED. BILAT MASTECTOMY W/FLAP AND CHEMO 2012. COLONOSCOPY. D & C. BLADDER SUSPENSION; Shoulder Arthroscopy Past Anesthesia/Blood Transfusion Reactions: No Reported Reaction Past Psychological History: Anxiety, Depression Smoking Status: Former smoker Past Alcohol Use History: None Reported Past Drug Use History: None Reported - Past Family History Mother Family Medical History: No Reported History Father Family Medical History: No Reported History Additional Family Medical History / Comment(s): cousin had breast CA General Exam Limitations: no limitations General appearance: alert, in no apparent distress Head exam: Present: atraumatic, normocephalic, normal inspection Eye exam: Present: normal appearance, PERRL, EOMI. Absent: scleral icterus, conjunctival injection, periorbital swelling ENT exam: Present: normal exam, mucous membranes moist, other ( is right- sided dried blood from epistaxis. She has a sore over the nasal septum.) Neck exam: Present: normal inspection. Absent: tenderness, meningismus, lymphadenopathy Respiratory exam: Present: normal lung sounds bilaterally. Absent: respiratory distress, wheezes, rales, rhonchi, stridor Cardiovascular Exam: Present: regular rate, normal rhythm, normal heart sounds. Absent: systolic murmur, diastolic murmur, rubs, gallop, clicks GI/Abdominal exam: Present: soft, normal bowel sounds. Absent: distended, tenderness, guarding, rebound, rigid Extremities exam: Present: normal inspection, full ROM, normal capillary refill. Absent: tenderness, pedal edema, joint swelling, calf tenderness Back exam: Present: normal inspection Neurological exam: Present: alert, oriented X3, CN II-XII intact Psychiatric exam: Present: normal affect, normal mood Course Vital Signs 07/30/18 07/30/18 12:25 14:25 Temperature 98.7 F 98 F Pulse Rate 122 H 102 H Respiratory 18 16 Rate Blood Pressure 111/70 122/84 O2 Sat by Pulse 96 96 Oximetry Medical Decision Making - Medical Decision Making patient's 58-year-old female presents or instructed if uncontrolled nosebleed at home. Once she is Here to slow down significantly. Patient had nasal sprays to help heal this area. Patient agrees treatment plan will comply. Return parameters were discussedlidocaine with epinephrine, placed in the nose and hold clean for 20 minutes. After evaluation thehas stopped completely. She does have evidence of a sore in her nose. Discussion is to use antibiotic ointment m oisturizing Disposition Clinical Impression: Nosebleed Disposition: HOME SELF-CARE Condition: Good Instructions (If sedation given, give patient instructions): Nosebleed (ED) Additional Instructions: Follow-up with primary care doctor. If there is any further nosebleeds please place the clamp and hold for 20 minutes use Afrin spray as directed. Recommend using mupirocin ointment over the nose to keep it moist. There is any further bleeding is uncontrolled please return for reevaluation. Return to emergency department if any alarming signs or symptoms occur. Prescriptions: Mupirocin 2% Oint [Bactroban 2% Oint] 1 applic NASAL TID #1 tube Is patient prescribed a controlled substance at d/c from ED?: No Referrals: Igor Bland DO [Primary Care Provider] - 1-2 days Nithin Butler MD [STAFF PHYSICIAN] - 1-2 days Time of Disposition: 14:12
[2018-07-30 14:25] VITALS: BP 122/84; PULSE 102; RESP 16; TEMP 98
== END 2018-07-30 14:30 | disposition home or self-care (01) ==
LOC: EC 12:11
DX: R04.0 Epistaxis (principal); F41.9 Anxiety disorder, unspecified; F32.9 Major depressive disorder, single episode, unspecified; Z87.891 Personal history of nicotine dependence; Z85.3 Personal history of malignant neoplasm of breast; Z90.13 Acquired absence of bilateral breasts and nipples; Z92.21 Personal history of antineoplastic chemotherapy; Z79.899 Other long term (current) drug therapy; Z88.5 Allergy status to narcotic agent
CPT/HCPCS: 99283

== ENCOUNTER → 2018-10-14 | Outpatient (CLI) | payer MEDICAID ==
--- NOTE | 2018-10-18 08:55 | PE ---
EXAMINATION TYPE: PET CT fusion skull to thigh DATE OF EXAM: 10/14/2018 COMPARISON: PET CTs dated 06/17/2018, 03/18/2018 and 12/03/2017 HISTORY: Left breast cancer. Subsequent treatment strategy. History of bilateral mastectomy in 2012 w ith prior chemotherapy on 09/29/2018. No history of radiation therapy. TECHNIQUE: Following the intravenous administration of 12.02 mCi of F-18 FDG, whole body images are performed from the skull base to the midthigh. Images are reviewed on the computer in the coronal, a xial, and sagittal planes. Reconstructed rotating images are created on independent workstation and reviewed on the computer. A localization and attenuation correction CT is performed in conjunction with the PET scan. SCAN: Subsequent. FINDINGS: Abdominal background: 2.72 Mediastinal background: 2.2 SKULL BASE AND NECK: No suspicious hypermetabolic uptake. CHEST, MEDIASTINUM, AND HILAR REGION: Pretracheal lymph node on series 3 image 70 is enlarged and hyp ermetabolic measuring 1.3 cm in short axis with maximum SUV of 7.7. This previously had a maximum SUV of 1.8 and measured up to 1.1 cm. Nonenlarged subcarinal lymph node is hypermetabolic with a maximum SUV of 3.07. This only measures 0. 9 cm in short axis. The left axillary mass currently measures 1.2 x 0.9 cm and has decreased in size in the interim, also decreased in metabolic activity. The adjacent left axillary lymph nodes have all nearly resolved in the interim. Maximum SUV in the left axilla measures 0.93. This previously measured 11.05. This is se en just posterior to the axillary surgical clip. No suspicious new hypermetabolic uptake in the right breast or axilla. No suspicious new hypermetabol ic uptake in the left breast or remainder of the thorax. ABDOMEN AND PELVIS: The previously seen suspicious focal hypermetabolic uptake near the caudate lobe on the prior exam of 06/17/2018 has entirely resolved in the interim. No focal lesion was seen on CT at that time and no focal lesion is seen on today's examination. No new suspicious uptake in the abdome n or pelvis. OSSEOUS STRUCTURES: No suspicious hypermetabolic uptake. Again there is right shoulder uptake, presum ed degenerative similar to prior exams. Uptake throughout the spine is diffuse indicative of either s timulation, response to chemotherapy. Right shoulder arthropathy has a maximum SUV of 3.04. OTHER CT: There is a right-sided Mediport is present. Intracranial aneurysm coil clips creates spray artifact. Paranasal sinuses are well aerated. Orbits are symmetric. Bilateral TRAM flap breast obdulio nstruction has been performed. Mild background emphysematous changes of the lungs. Trace pericardial effusion is unchanged. Minimal bibasilar subsegmental dependent atelectasis and pleural parenchymal s carring. Ventral hernia repair has been performed. Heart is mildly enlarged. Moderate atherosclerosis of the abdominal aorta and its branches. Fat stranding within the gluteal subcutaneous tissues may b e on the basis of subcutaneous injection sites. IMPRESSION: 1. Within the left axilla and liver there is response to treatment with marked improvement in size an d uptake of the the left axillary adenopathy. 2. Persistent hypermetabolic mediastinal adenopathy remains suspicious for metastasis with minimal in crease in size and overall increase in SUV of a solitary pretracheal lymph node. 3. No new additional suspicious uptake to suggest additional sites of metastasis is seen within the c hest, abdomen, nor pelvis.
== END | disposition home or self-care (01) ==
LOC: RADPETMAIN 08:27
PROVIDERS: ATTEND Internal Medicine Hematology & Oncology
DX: C50.812 Malignant neoplasm of overlapping sites of left female breast (principal); R59.0 Localized enlarged lymph nodes
CPT/HCPCS: 78815; A9552

== ENCOUNTER → 2018-11-30 | Outpatient (CLI) | payer MEDICAID ==
[~2018-11-30] MED LIST changes: -DEXAMETHASONE SOD PHOSPHATE 10 MG/ML 1 ML VIAL IV ONE; -HYDROmorphone 0.5 MG/0.5 ML SYRINGE IVP PRN; -LACTATED RINGERS 1,000 ML IV SCH; -ONDANSETRON 4 MG/2 ML VIAL IVP ONE; -Pre Op ABX Message 1 EACH MISC MISCELLANE ONE; +SODIUM CHLORIDE 0.9% 500 ML 500 ML in EMPTY BAG 1 BAG IV PRN
[2018-11-30 14:32] VITALS: BP 102/66; PULSE 100; RESP 16; TEMP 98.4
== END ==
LOC: PROCWHC3 12:02
PROVIDERS: ATTEND Internal Medicine Hematology & Oncology
DX: D64.81 Anemia due to antineoplastic chemotherapy (principal); C50.912 Malignant neoplasm of unspecified site of left female breast; G89.3 Neoplasm related pain (acute) (chronic); F32.9 Major depressive disorder, single episode, unspecified; R12 Heartburn; M81.0 Age-related osteoporosis without current pathological fracture; Z71.3 Dietary counseling and surveillance
CPT/HCPCS: 86900; 86901; 86850; 86920; 36430; 36591; P9016; J1642

== ENCOUNTER → 2019-01-17 | Outpatient (CLI) | payer MEDICAID ==
[2019-01-17 17:28] LABS: African American GFR (CKD) 118.1 (60.0-200.0); Albumin 3.6 g/dL (3.80-4.90); Albumin/Globulin Ratio 1.29 (1.60-3.17); Calcium 10.3 mg/dL (8.7-10.3); Globulin 2.8 g/dL (1.6-3.3); Potassium 3.6 mmol/L (3.5-5.5); Total Bilirubin 0.5 mg/dL (0.3-1.2); Total Protein 6.4 g/dL (6.2-8.2)
== END | disposition home or self-care (01) ==
LOC: LABWHC1 09:42
PROVIDERS: ATTEND Internal Medicine Endocrinology, Diabetes & Metabolism
DX: E21.0 Primary hyperparathyroidism (principal)
CPT/HCPCS: 36415; 80053; 82306; 83970

== ENCOUNTER → 2019-01-31 | Outpatient (CLI) | payer MEDICAID ==
--- NOTE | 2019-01-31 08:35 | US ---
EXAMINATION TYPE: US thyroid st tissue head/neck DATE OF EXAM: 01/31/2019 COMPARISON: NONE CLINICAL HISTORY: E21.0, PRIMARY HYPERPARATHYROIDISM. INCREASE IN CALCIUM LEVELS GLAND SIZE: Right Lobe: 3.9 x 1.4 x 1.5 cm Overall Parenchyma: homogenous Left Lobe: 2.7 x 0.8 x 1.1 cm Overall Parenchyma: homogeneous Isthmus Thickness: 0.3 cm NODULES RIGHT: # of nodules measured on right: 0 LEFT: # of nodules measured on left: 0 ISTHMUS: # of nodules measured in the isthmus: 0 Bilateral neck scanned, no evidence of lymphadenopathy. No parathyroid tissue was seen inferior to thyroid gland bilaterally IMPRESSION: 1. Normal thyroid and parathyroid ultrasound
== END | disposition home or self-care (01) ==
LOC: RADUSWWP 09:01
PROVIDERS: ATTEND Internal Medicine Endocrinology, Diabetes & Metabolism
DX: E21.0 Primary hyperparathyroidism (principal)
CPT/HCPCS: 76536

== ENCOUNTER → 2019-03-03 | Outpatient (CLI) | payer MEDICAID ==
--- NOTE | 2019-03-05 08:30 | PE ---
EXAMINATION TYPE: PET CT fusion skull to thigh DATE OF EXAM: 03/03/2019 COMPARISON: Prior PET CTs dated 10/14/2018, 06/17/2018, and 12/03/2017. HISTORY: History of left breast cancer treated with bilateral mastectomy in 2011 and prior chemothera py on 09/29/2018. No history of radiation therapy. Subsequent treatment strategy. TECHNIQUE: Following the intravenous administration of 10.96 mCi of F-18 FDG, whole body images are performed from the skull base to the midthigh. Images are reviewed on the computer in the coronal, a xial, and sagittal planes. Reconstructed rotating images are created on independent workstation and reviewed on the computer. A localization and attenuation correction CT is performed in conjunction with the PET scan. SCAN: Subsequent FINDINGS: Abdominal background: 2.41 Mediastinal background: 1.64 SKULL BASE AND NECK: The left subpectoral lymph node has now enlarged now measuring 2.4 x 1.5 cm on series 3 image 52. This has a maximum SUV of 6.38. An abnormal left axillary lymph node appears to have an increased SUV from the prior and has enlarged . This measures 1.4 cm in short axis on today's exam and was subcentimeter on the prior. This demonst rates a maximum SUV of 4.08. CHEST, MEDIASTINUM, AND HILAR REGION: The previously seen pretracheal lymph node that had decreased o n the prior has now increased in size and now has a maximum SUV 6.62. This measures 2.4 x 1.8 cm (chris or measurement of 1.37 mm in short axis). This previously had a maximum SUV of 7.7. New hypermetabolic subcarinal lymph node measures 1.3 cm in short axis and has a maximum SUV of 3.33. ABDOMEN AND PELVIS: New adenopathy in the abdomen with leesa hepatis lymph node on series 3 image 115 measuring 9 mm in short axis and having a maximum SUV just over abdominal background. OSSEOUS STRUCTURES: Some sclerosis of the left iliac bone on series 3 image 154 without increasing av idity. This was present on the prior. Uptake of the right shoulder has a maximum SUV of 3.39. This is likely secondary to arthropathy. No new suspicious osseous uptake. OTHER CT: There are punctate calculus within the tonsils. Right-sided Mediport is again present. The known intracranial aneurysm coiling clips are not seen on today's exam. Bilateral TRAM flap reconstru ction in both breasts. Very trace pericardial effusion is unchanged. Heart is mildly enlarged. Very m ild hiatal hernia. Ventral hernia repair has been performed. Moderate atherosclerosis of the abdomina l aorta and its branches. Very mild emphysematous changes in the lungs and scattered areas of atelect asis are seen. Fat stranding in the gluteal soft tissues again likely on the basis of subcutaneous in jections. IMPRESSION: Progression of disease. New infradiaphragmatic hypermetabolic lymph nodes, enlarging left axillary mediastinal lymph nodes, and new hypermetabolic subcarinal lymph node.
== END | disposition home or self-care (01) ==
LOC: RADPETMAIN 07:32
PROVIDERS: ATTEND Internal Medicine Hematology & Oncology
DX: R59.0 Localized enlarged lymph nodes (principal); C50.812 Malignant neoplasm of overlapping sites of left female breast
CPT/HCPCS: 78815; A9552

== ENCOUNTER 2019-03-12 10:26 | Day surgery (SDC) | payer MEDICAID ==
[2019-03-12] MEDS ORDERED: ALPRAZolam 0.5 MG TAB PO ONE (10:46)
[2019-03-12 10:55] VITALS: TEMP 98.3
[2019-03-12 13:04] VITALS: BP 132/71; PULSE 108; RESP 16
--- NOTE | 2019-03-12 15:04 | US ---
EXAMINATION TYPE: US biopsy lymph node DATE OF EXAM: 03/12/2019 HISTORY: Left axillary mass, abnormal PET/CT, breast cancer. FINDINGS: Maximal barrier technique was utilized. The skin overlying a suitable path to the patient' s left axillary mass was localized with ultrasound and the overlying skin prepped and draped. Ultras ound was utilized with sterile technique. Lidocaine was used for local anesthesia. A skin cheryl was made with a scalpel. 17-gauge guide needle was advanced under ultrasound guidance to the level of th e lesion. An 18-gauge needle was advanced under direct ultrasound guidance and core specimen obtained of the mass, additional core specimen performed coaxially through a 17-gauge guide, 2 passes. Speci mens submitted in formalin to Pathology. Following the procedure, hemostasis achieved and the patien t is discharged in stable condition without complication. IMPRESSION:STATUS POST ULTRASOUND GUIDED CORE BIOPSY OF left axillary MASS, PATHOLOGY IS PENDING. TH IS PROCEDURE IS PERFORMED BY THE UNDERSIGNED.
== END 2019-03-12 13:15 | disposition home or self-care (01) ==
LOC: RADPROMAIN 10:26
PROVIDERS: ATTEND Internal Medicine Hematology & Oncology
DX: C50.912 Malignant neoplasm of unspecified site of left female breast (principal); Z17.1 Estrogen receptor negative status [ER-]; R59.0 Localized enlarged lymph nodes; Z88.5 Allergy status to narcotic agent; Z91.048 Other nonmedicinal substance allergy status
CPT/HCPCS: 88305; 88342; 88341; 76942; 38505; A4648

== ENCOUNTER 2019-03-29 03:19 | Emergency (ER) | payer MEDICAID ==
[2019-03-29 03:53] VITALS: RESP 18
--- NOTE | 2019-03-29 04:09 | ED ---
Abdominal Pain HPI - General Chief Complaint: Abdominal Pain Stated Complaint: Abd Pain Time Seen by Provider: 03/29/19 03:43 Source: patient Mode of arrival: ambulatory Limitations: no limitations - History of Present Illness Initial Comments: This patient is 58-year-old woman presenting with right lower quadrant pain that is been going on since approximate 7 PM tonight. Patient states that it is somewhat aching, somewhat sharp. It is moderate intensity and constant. It does get worse with pressing on it or with certain movements. Patient states it may have come on after coughing spell. The patient states that she did taken [place] when it seemed to help but it a little bit. There is some associated nausea but no vomiting. No change in bowel movements or urination. Patient states no change in appetite. MD Complaint: abdominal pain Onset/Timin -: hour(s) Location: RLQ Radiation: none Migration to: no migration Severity: moderate Quality: aching Consistency: constant Improves With: medication Worsens With: movement Associated Symptoms: nausea Treatments Prior to Arrival: prescription analgesics - Related Data Home Medications Medication Instructions Recorded Confirmed DULoxetine HCL [Cymbalta] 60 mg PO BID 07/22/16 03/12/19 ALPRAZolam [Xanax] 0.25 mg PO BID PRN 05/06/17 03/12/19 Acetaminophen [Tylenol] 325 - 650 mg PO Q6H PRN 12/17/17 03/12/19 tiZANidine [Zanaflex] 2 mg PO DAILY PRN 02/05/19 03/12/19 Amoxicillin 875 mg PO Q12HR 03/08/19 03/12/19 Cariprazine HCl [Vraylar] 3 mg PO DAILY 03/08/19 03/12/19 predniSONE 10 mg PO BID 03/08/19 03/12/19 Previous Rx's Medication Instructions Recorded Mupirocin 2% Oint [Bactroban 2% 1 applic NASAL TID #1 tube 07/30/18 Oint] guaiFENesin-Coden 100-10MG/5ML 10 ml PO Q6H PRN 3 Days #120 ml 03/29/19 [Robitussin AC] predniSONE 20 mg PO BID #8 tab 03/29/19 Allergies Allergy/AdvReac Type Severity Reaction Status Date / Time adhesive tape Allergy Rash/Hives Verified 03/12/19 11:09 tramadol HCl [From [facility]] Allergy Rash/Hives Verified 03/08/19 12:59 Review of Systems ROS Statement: Those systems with pertinent positive or pertinent negative responses have been documented in the HPI. ROS Other: All systems not noted in ROS Statement are negative. Constitutional: Denies: fever, chills Respiratory: Denies: cough, dyspnea Cardiovascular: Denies: chest pain, palpitations Gastrointestinal: Reports: as per HPI, abdominal pain, nausea. Denies: vomiting, diarrhea, constipation, melena, hematochezia Genitourinary: Denies: dysuria, frequency, hematuria Musculoskeletal: Denies: back pain Skin: Denies: rash Neurological: Denies: headache, weakness, numbness Past Medical History Past Medical History: Cancer Additional Past Medical History / Comment(s): BRAIN ANEURYSM 2007 REQUIRED COILING AT [facility]. BREAST CANCER 2012 & 10/2017,2019. HOSPITALIZED RECENTLY FOR FEVER AND LOW NEUTROPHILS. History of Any Multi-Drug Resistant Organisms: ESBL Date of last positivie culture/infection: 01/05/18 MDRO Source:: ESBL URINE Past Surgical History: Bladder Surgery, Breast Surgery, Orthopedic Surgery, Tubal Ligation Additional Past Surgical History / Comment(s): thyroid NODULE REMOVED. BILAT MASTECTOMY W/FLAP AND CHEMO 2012. COLONOSCOPY. D & C. BLADDER SUSPENSION; Shoulder Arthroscopy Past Anesthesia/Blood Transfusion Reactions: No Reported Reaction Past Psychological History: Anxiety, Depression Smoking Status: Former smoker Past Alcohol Use History: None Reported Past Drug Use History: None Reported - Past Family History Mother Family Medical History: No Reported History Father Family Medical History: No Reported History Additional Family Medical History / Comment(s): cousin had breast CA General Exam Limitations: no limitations General appearance: alert, in no apparent distress Head exam: Present: atraumatic, normocephalic Eye exam: Present: normal appearance. Absent: scleral icterus, conjunctival injection ENT exam: Present: normal oropharynx Respiratory exam: Present: normal lung sounds bilaterally. Absent: respiratory distress, wheezes, rales, rhonchi, stridor Cardiovascular Exam: Present: regular rate, normal rhythm, normal heart sounds. Absent: systolic murmur, diastolic murmur, rubs, gallop GI/Abdominal exam: Present: soft, tenderness (There is mild right lower quadrant tenderness without rebound or guarding). Absent: distended, guarding, rebound, rigid, mass, pulsatile mass, hernia Extremities exam: Present: normal inspection, normal capillary refill. Absent: pedal edema, calf tenderness Back exam: Present: normal inspection. Absent: CVA tenderness (R), CVA tenderness (L) Neurological exam: Present: alert Skin exam: Present: warm, dry, intact, normal color. Absent: rash Course Vital Signs 03/29/19 03:50 Temperature 97.9 F Pulse Rate 105 H Respiratory 18 Rate Blood Pressure 106/56 O2 Sat by Pulse 99 Oximetry Medical Decision Making - Lab Data Result diagrams: 03/29/19 04:15 03/29/19 04:15 Lab Results 03/29/19 03/29/19 03/29/19 Range/Units 04:15 04:15 05:40 WBC 7.4 (3.8-10.6) k/uL RBC 3.31 L (3.80-5.40) m/uL Hgb 10.9 L (11.4-16.0) gm/dL Hct 33.7 L (34.0-46.0) % MCV 102.0 H (80.0-100.0) fL MCH 33.1 (25.0-35.0) pg MCHC 32.4 (31.0-37.0) g/dL RDW 17.3 H (11.5-15.5) % Plt Count 83 L (150-450) k/uL Neutrophils % 79 % Lymphocytes % 13 % Monocytes % 6 % Eosinophils % 1 % Basophils % 0 % Neutrophils # 5.8 (1.3-7.7) k/uL Lymphocytes # 0.9 L (1.0-4.8) k/uL Monocytes # 0.4 (0-1.0) k/uL Eosinophils # 0.1 (0-0.7) k/uL Basophils # 0.0 (0-0.2) k/uL Manual Slide Review Performed Anisocytosis Slight Macrocytosis Slight Sodium 137 (137-145) mmol/L Potassium 4.1 (3.5-5.1) mmol/L Chloride 108 H (98-107) mmol/L Carbon Dioxide 26 (22-30) mmol/L Anion Gap 3 mmol/L BUN 9 (7-17) mg/dL Creatinine 0.61 (0.52-1.04) mg/dL Est GFR (CKD-EPI)AfAm >90 (>60 ml/min/1.73 sqM) Est GFR (CKD-EPI)NonAf >90 (>60 ml/min/1.73 sqM) Glucose 114 H (74-99) mg/dL Calcium 10.7 H (8.4-10.2) mg/dL Total Bilirubin 0.7 (0.2-1.3) mg/dL AST 68 H (14-36) U/L ALT 51 (9-52) U/L Alkaline Phosphatase 86 (38-126) U/L C-Reactive Protein 8.8 (<10.0) mg/L Total Protein 6.9 (6.3-8.2) g/dL Albumin 3.6 (3.5-5.0) g/dL Amylase 71 (30-110) U/L Lipase 126 (23-300) U/L Urine Color Yellow Urine Appearance Clear (Clear) Urine pH 6.5 (5.0-8.0) Ur Specific [place] 1.016 (1.001-1.035) Urine Protein Negative (Negative) Urine Glucose (UA) Negative (Negative) Urine Ketones Negative (Negative) Urine Blood Negative (Negative) Urine Nitrite Negative (Negative) Urine Bilirubin Negative (Negative) Urine Urobilinogen 2.0 (<2.0) mg/dL Ur Leukocyte Esterase Negative (Negative) Disposition Clinical Impression: Abdominal pain, Abdominal wall strain Disposition: HOME SELF-CARE Condition: Good Instructions (If sedation given, give patient instructions): Abdominal Pain (ED) Prescriptions: predniSONE 20 mg PO BID #8 tab guaiFENesin-Coden 100-10MG/5ML [Robitussin AC] 10 ml PO Q6H PRN 3 Days #120 ml PRN Reason: Cough Is patient prescribed a controlled substance at d/c from ED?: No Referrals: Igor Bland DO [Primary Care Provider] - 1-2 days
[2019-03-29 04:31] LABS: Anisocytosis Slight; Basophils % (A) 0 %; Eosinophils # (A) 0.1 k/uL (0-0.7); Eosinophils % (A) 1 %; HCT 33.7 % (34.0-46.0); HGB 10.9 gm/dL (11.4-16.0); Lymphocytes # (A) 0.9 k/uL (1.0-4.8); Lymphocytes % (A) 13 %; MCH 33.1 pg (25.0-35.0); MCHC 32.4 g/dL (31.0-37.0); Macrocytosis Slight; Mean Platelet Volume 9.1; Monocytes # (A) 0.4 k/uL (0-1.0); Monocytes % (A) 6 %; Neutrophils # (A) 5.8 k/uL (1.3-7.7); Neutrophils % (A) 79 %; RBC 3.31 m/uL (3.80-5.40); RDW 17.3 % (11.5-15.5); WBC 7.4 k/uL (3.8-10.6)
[2019-03-29] MEDS: ONDANSETRON 4 MG/2 ML VIAL IVP STA (04:32)
[2019-03-29] MEDS: MORPHINE SULFATE 4 MG/ML SYRINGE IV STA (04:32)
[2019-03-29 04:46] LABS: ALT 51 U/L (9-52); AST 68 U/L (14-36); African American GFR (CKD) >90 (>60 ml/min/1.73 sqM); Albumin 3.6 g/dL (3.5-5.0); Alkaline Phosphatase 86 U/L (38-126); Amylase 71 U/L (30-110); Anion Gap 3 mmol/L; Blood Urea Nitrogen 9 mg/dL (7-17); C Reactive Protein 8.8 mg/L (<10.0); Calcium 10.7 mg/dL (8.4-10.2); Carbon Dioxide 26 mmol/L (22-30); Chloride 108 mmol/L (98-107); Glucose 114 mg/dL (74-99); Non-African American GFR(CKD) >90 (>60 ml/min/1.73 sqM); Potassium 4.1 mmol/L (3.5-5.1); Sodium 137 mmol/L (137-145); Total Bilirubin 0.7 mg/dL (0.2-1.3); Total Protein 6.9 g/dL (6.3-8.2)
[2019-03-29 05:14] LABS: Platelet Count 83 k/uL (150-450)
[2019-03-29 05:58] LABS: Appearance,Urine Clear (Clear); Bilirubin,Urine Negative (Negative); Blood,Urine Negative (Negative); Color,Urine Yellow; Glucose,Urine (UA) Negative (Negative); Ketones,Urine Negative (Negative); Leukocyte Esterase,Urine Negative (Negative); Nitrite,Urine Negative (Negative); PH, Urine 6.5 (5.0-8.0); Protein,Urine Negative (Negative); Specific Gravity,Urine 1.016 (1.001-1.035)
[2019-03-29] MEDS: predniSONE 20 MG TAB PO STA (06:24)
[2019-03-29 06:44] VITALS: BP 114/72; PULSE 62; TEMP 97.7
== END 2019-03-29 06:44 | disposition home or self-care (01) ==
LOC: EC 03:19
DX: S39.011A Strain of muscle, fascia and tendon of abdomen, initial encounter (principal); F41.9 Anxiety disorder, unspecified; F32.9 Major depressive disorder, single episode, unspecified; Z79.52 Long term (current) use of systemic steroids; Z79.899 Other long term (current) drug therapy; Z91.048 Other nonmedicinal substance allergy status; Z88.5 Allergy status to narcotic agent; Z85.3 Personal history of malignant neoplasm of breast; Z90.13 Acquired absence of bilateral breasts and nipples; Z92.21 Personal history of antineoplastic chemotherapy; Z87.891 Personal history of nicotine dependence; X50.9XXA Other and unspecified overexertion or strenuous movements or postures, initial encounter
CPT/HCPCS: 36415; 80053; 82150; 83690; 85025; 86140; 81003; 99284; 96374; 96375; J2270; J2405; J7512

== ENCOUNTER → 2019-04-16 | Outpatient (CLI) | payer MEDICAID ==
--- NOTE | 2019-04-17 18:34 | MR ---
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 Diffusion weighted imaging is performed. FINDINGS: Focal susceptibility artifact just anterior to the midbrain corresponding to a coil mass when correla jf with CT of 10/10/2015. Postcontrast series shows this to correspond to the vicinity of the basilar tip. However, nodular area of 5.5 mm enhancement is located at the tip of the basilar artery just pr oximal to the coil mass. Remaining major intracranial flow voids are intact. No evidence for acute infarction, hemorrhage, mass effect, midline shift, herniation, effacement of b chuck cisterns, or extra-axial fluid collection. The ventricles and sulci are age-appropriate. T2/FLAIR weighted sequences demonstrate mild to moderate scattered bright white matter change within the subcortical and deep white matter regions of both cerebral hemispheres. Old lacunar infarct right basal ganglia. Midline structures demonstrate normal morphology. The craniocervical junction is normal. Post contrast images show a small 5 mm T2 bright focus of possible subtle ring enhancement within the right occipital lobe, refer to axial image 47, sagittal image 86, and coronal image 83. No other christie dence of pathologic enhancement. Dural venous sinuses are patent. Mild mucosal thickening ethmoid air cells and maxillary sinuses. Globes are intact. IMPRESSION: 1. A small 5 mm T2 bright focus within the right occipital lobe shows subtle ring enhancement. A smal l early metastatic focus is difficult to exclude. No additional suspicious enhancing intracranial les ions identified. 2. 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 There is possible 5.5 mm re current versus residual basilar tip aneurysm here. 3. [id number] scattered burden of chronic small vessel ischemic disease. No acute intracranial abnormality seen.
== END | disposition home or self-care (01) ==
LOC: RADMRIMAIN 07:49
PROVIDERS: ATTEND Internal Medicine
DX: C79.31 Secondary malignant neoplasm of brain (principal); I67.82 Cerebral ischemia; C79.9 Secondary malignant neoplasm of unspecified site; C50.919 Malignant neoplasm of unspecified site of unspecified female breast
CPT/HCPCS: 70553; A9585

== ENCOUNTER → 2019-10-09 | Outpatient (CLI) | payer MEDICAID, OTHER ==
--- NOTE | 2019-10-09 14:31 | US ---
EXAMINATION TYPE: US venous doppler duplex UE LT DATE OF EXAM: 10/09/2019 COMPARISON: Patent CT March 03, 2019 CLINICAL HISTORY: R22.32 SWELLING, MASS AND LUMP. History of breast cancer. SIDE PERFORMED: Left Left Arm: At left mid subclavian vein there is a large heterogeneous lobulated mass corresponding to hypermetabolic metastatic focus at this level. Patent vein cannot be identified but likely compressed by this lesion. Grayscale, color doppler, spectral doppler imaging performed of the deep veins of th e left upper extremity. There is normal flow, compressibility and vascular waveforms outside the lef t mid subclavian vein level. IMPRESSION: No convincing evidence for acute DVT in the left upper extremity. Metastatic left supracl avicular focus is presumed causing compression or obstruction at level of left mid subclavian vein.
== END | disposition home or self-care (01) ==
LOC: RADUSWWP 13:39
PROVIDERS: ATTEND Radiology Radiation Oncology
DX: C50.412 Malignant neoplasm of upper-outer quadrant of left female breast (principal); C79.89 Secondary malignant neoplasm of other specified sites; C77.1 Secondary and unspecified malignant neoplasm of intrathoracic lymph nodes; R22.32 Localized swelling, mass and lump, left upper limb; Z90.13 Acquired absence of bilateral breasts and nipples

== ENCOUNTER 2020-06-17 09:05 | Inpatient (IN) | payer OTHER ==
[2020-06-17] MEDS ORDERED: SODIUM CHLORIDE 0.9% 1,000 ML IV STA (09:46)
[2020-06-17] MEDS ORDERED: ONDANSETRON 4 MG/2 ML VIAL IVP STA (09:46)
[2020-06-17] MEDS ORDERED: FAMOTIDINE 20 MG/2 ML VIAL IV STA (09:49)
--- NOTE | 2020-06-17 09:51 | ED ---
General Adult HPI - General Chief complaint: Weakness Stated complaint: chemo patient/weakness Time Seen by Provider: 06/17/20 09:23 Source: patient, family, RN notes reviewed Mode of arrival: wheelchair Limitations: no limitations - History of Present Illness Initial comments: Patient is a pleasant 60-year-old female presenting to the emergency department with concern for dehydration and weakness. Onset of symptoms was several days ago. Patient had chemotherapy on for the first time for metastatic breast cancer. Patient does have metastasis to the brain. Patient states decreased oral intake for the past several days. Nausea without vomiting. Patient has had several episodes of diarrhea. No abdominal pain. No fevers. - Related Data Home Medications Medication Instructions Recorded Confirmed Cariprazine HCl [Vraylar] 3 mg PO DAILY 03/08/19 06/17/20 Capecitabine [Xeloda] 500 mg PO DIRECTED 06/17/20 06/17/20 DULoxetine HCL [Cymbalta] 60 mg PO BID 06/17/20 06/17/20 Gabapentin [Neurontin] 300 mg PO TID 06/17/20 06/17/20 Levothyroxine Sodium [Synthroid] 100 mcg PO DAILY 06/17/20 06/17/20 Omeprazole [PriLOSEC] 20 mg PO AC-BID 06/17/20 06/17/20 Prochlorperazine [Compazine] 10 mg PO Q6H PRN 06/17/20 06/17/20 Tolterodine Tartrate [Detrol LA] 4 mg PO DAILY 06/17/20 06/17/20 ondansetron HCL [Zofran] 8 mg PO Q8HR PRN 06/17/20 06/17/20 Allergies Allergy/AdvReac Type Severity Reaction Status Date / Time adhesive tape Allergy Rash/Hives Verified 06/17/20 10:17 tramadol HCl [From [facility]] Allergy Rash/Hives Verified 06/17/20 10:17 Review of Systems ROS Statement: Those systems with pertinent positive or pertinent negative responses have been documented in the HPI. ROS Other: All systems not noted in ROS Statement are negative. Constitutional: Denies: fever Eyes: Denies: eye pain ENT: Denies: ear pain Respiratory: Denies: cough Cardiovascular: Denies: chest pain Endocrine: Reports: fatigue Gastrointestinal: Reports: nausea, diarrhea. Denies: abdominal pain, vomiting Genitourinary: Denies: dysuria Musculoskeletal: Denies: back pain Skin: Denies: rash Neurological: Denies: headache Past Medical History Past Medical History: Cancer Additional Past Medical History / Comment(s): BRAIN ANEURYSM 2008 REQUIRED COILING AT [facility]. BREAST CANCER 2012 & 10/2017,2019. HOSPITALIZED RECENTLY FOR FEVER AND LOW NEUTROPHILS. History of Any Multi-Drug Resistant Organisms: ESBL Date of last positivie culture/infection: 01/05/18 MDRO Source:: ESBL URINE Past Surgical History: Bladder Surgery, Breast Surgery, Orthopedic Surgery, Tubal Ligation Additional Past Surgical History / Comment(s): thyroid NODULE REMOVED. BILAT MASTECTOMY W/FLAP AND CHEMO 2012. COLONOSCOPY. D & C. BLADDER SUSPENSION; [place] Arthroscopy Past Anesthesia/Blood Transfusion Reactions: No Reported Reaction Past Psychological History: Anxiety, Depression Past Alcohol Use History: None Reported Past Drug Use History: None Reported - Past Family History Mother Family Medical History: No Reported History Father Family Medical History: No Reported History Additional Family Medical History / Comment(s): cousin had breast CA General Exam Limitations: no limitations General appearance: alert, in no apparent distress Head exam: Present: normocephalic Eye exam: Present: normal appearance ENT exam: Present: mucous membranes dry Neck exam: Present: normal inspection Respiratory exam: Present: normal lung sounds bilaterally Cardiovascular Exam: Present: tachycardia GI/Abdominal exam: Present: soft. Absent: tenderness Extremities exam: Present: normal inspection. Absent: pedal edema, calf tenderness Neurological exam: Present: alert Psychiatric exam: Present: normal affect, normal mood Skin exam: Present: normal color Course Vital Signs 06/17/20 06/17/20 06/17/20 09:16 10:28 11:00 Temperature 98.5 F Pulse Rate 60 110 H 115 H Respiratory 18 16 18 Rate Blood Pressure 79/59 101/67 92/65 O2 Sat by Pulse 100 98 97 Oximetry EKG Findings - EKG Comments: EKG Findings:: Sinus tachycardia rate 125. RI 126. QRS 86. QT 296. QTc 427. Normal axis. Normal QRS. No acute ST change. Medical Decision Making - Medical Decision Making Patient reevaluated and updated. Case discussed with Dr. andrade, who will admit covering for Dr. Bland. - Lab Data Result diagrams: 06/17/20 10:14 06/17/20 10:14 Lab Results 06/17/20 06/17/20 Range/Units 10:14 10:14 WBC 0.6 L* (3.8-10.6) k/uL RBC 3.78 L (3.80-5.40) m/uL Hgb 10.4 L (11.4-16.0) gm/dL Hct 30.0 L (34.0-46.0) % MCV 79.3 L (80.0-100.0) fL MCH 27.5 (25.0-35.0) pg MCHC 34.7 (31.0-37.0) g/dL RDW 18.0 H (11.5-15.5) % Plt Count 132 L (150-450) k/uL MPV 7.4 Neutrophils # PREPRESS SUPERVISOR Differential Comment Manual Slide Review Performed Poikilocytosis (manual Present Anisocytosis Slight Microcytosis Slight Sodium 122 L (137-145) mmol/L Potassium 3.8 (3.5-5.1) mmol/L Chloride 91 L (98-107) mmol/L Carbon Dioxide 22 (22-30) mmol/L Anion Gap 9 mmol/L BUN 12 (7-17) mg/dL Creatinine 0.86 (0.52-1.04) mg/dL Est GFR (CKD-EPI)AfAm 87 (>60 ml/min/1.73 sqM) Est GFR (CKD-EPI)NonAf 75 (>60 ml/min/1.73 sqM) Glucose 141 H (74-99) mg/dL Calcium 9.3 (8.4-10.2) mg/dL Total Bilirubin 2.4 H (0.2-1.3) mg/dL AST 21 (14-36) U/L ALT 19 (4-34) U/L Alkaline Phosphatase 106 (38-126) U/L Total Protein 6.0 L (6.3-8.2) g/dL Albumin 3.1 L (3.5-5.0) g/dL Disposition Clinical Impression: Hyponatremia, Dehydration, Leukopenia Disposition: ADMITTED IP TO THIS HOSP Is patient prescribed a controlled substance at d/c from ED?: No Referrals: Igor Bland DO [Primary Care Provider] - 1-2 days Decision Time: 11:52
[2020-06-17 10:50] LABS: Albumin 3.1 g/dL (3.5-5.0); Calcium 9.3 mg/dL (8.4-10.2); Potassium 3.8 mmol/L (3.5-5.1); Total Bilirubin 2.4 mg/dL (0.2-1.3)
[2020-06-17 11:13] LABS: Anisocytosis Slight; HGB 10.4 gm/dL (11.4-16.0); MCH 27.5 pg (25.0-35.0); MCHC 34.7 g/dL (31.0-37.0); MCV 79.3 fL (80.0-100.0); Mean Platelet Volume 7.4; Microcytosis Slight; Platelet Count 132 k/uL (150-450); RBC 3.78 m/uL (3.80-5.40)
[2020-06-17 11:14] LABS: WBC 0.6 k/uL (3.8-10.6)
[2020-06-17 11:26] LABS: Poikilocytosis (M) Present
[2020-06-17] MEDS ORDERED: ONDANSETRON 4 MG/2 ML VIAL IVP PRN (11:53)
[2020-06-17] MEDS ORDERED: NALOXONE 0.4 MG/ML 1 ML VIAL IV PRN (11:53)
[2020-06-17] MEDS: SODIUM CHLORIDE 0.9% 1,000 ML IV SCH (12:08)
[2020-06-17 12:38] LABS: Appearance,Urine Clear (Clear); Bacteria,Urine Rare /hpf; Bilirubin,Urine Negative (Negative); Blood,Urine Trace (Negative); Color,Urine Yellow; Glucose,Urine (UA) Negative (Negative); Granular Casts,Urine 6 /lpf (0); Hyaline Casts,Urine 3 /lpf (0-2); Ketones,Urine Trace (Negative); Leukocyte Esterase,Urine Negative (Negative); Mucus,Urine Rare /hpf; Nitrite,Urine Negative (Negative); Protein,Urine 1+ (Negative); RBC,Urine 2 /hpf (0-5); Specific Gravity,Urine 1.008 (1.001-1.035); Squamous Epithelial Cell,Urine <1 /hpf (0-4); Urobilinogen,Urine <2.0 mg/dL (<2.0); WBC,Urine 2 /hpf (0-5)
[2020-06-17] MEDS ORDERED: PROCHLORPERAZINE 10 MG TAB PO PRN (12:39)
--- NOTE | 2020-06-17 13:45 | P.HPIM ---
History of Present Illness This is a pleasant 60 years old female was recently diagnosed with right breast cancer undergoing chemotherapy presents with decreased oral intake and diarrhea and hyponatremia. She is a patient of Dr. Bland and she follow up with [facility] with Dr. bessie cox for her cancer treatment. She's been getting chemotherapy for her right breast cancer with metastasis to the brain and the left chest wall since 2018, her last chemotherapy was last about 5 days ago. Also she is status post radiotherapy with Dr. Sue last summer. Presents because of continuous diarrhea for the last 5-6 days, her diarrhea is watery and runny every half hour to 1 hour as per patient with no blood. No abdominal pain. No nausea vomiting but she has decreased oral intake and decreased appetite, she felt more weak today, dehydrated and delirious. She states that usually have both systolic blood pressure is 120 but on admission was on 90s. She feels dizzy but did not pass out She denies smoking, alcohol or illicit drugs She is slightly tachycardic and hypotensive with blood pressure 96/64. Labs showing pancytopenia with severely low WBC at 0.6K and mild anemia at 10.4 and mild thrombocytopenia on 1:30 2K. Is 122. Rest of BMP and liver enzymes are unremarkable. EKG showing sinus tachycardia at [address]-T changes. In the emergency room she received Pepcid, Zofran and normal saline 1 L and c ontinued at 75 mL/h Review of Systems CONSTITUTIONAL: No fever, no malaise, no fatigue. HEENT: No recent visual problems or hearing problems. Denied any sore throat. CARDIOVASCULAR: No orthopnea, PND, no palpitations, no syncope. PULMONARY: No shortness of breath, no cough, no hemoptysis. GASTROINTESTINAL: no nausea, no vomiting, no abdominal pain. Normoactive bowel sounds. NEUROLOGICAL: No headaches, no weakness, no numbness. HEMATOLOGICAL: Denies any bleeding or petechiae. GENITOURINARY: Denies any burning micturition, frequency, or urgency. MUSCULOSKELETAL/RHEUMATOLOGICAL: Denies any joint pain, swelling, or any muscle pain. ENDOCRINE: Denies any polyuria or polydipsia. Past Medical History Past Medical History: Cancer Additional Past Medical History / Comment(s): BRAIN ANEURYSM 2007 REQUIRED COILING AT [facility]. BREAST CANCER 2012 & 10/2017,2019. HOSPITALIZED RECENTLY FOR FEVER AND LOW NEUTROPHILS. History of Any Multi-Drug Resistant Organisms: ESBL Date of last positivie culture/infection: 01/05/18 MDRO Source:: ESBL URINE Past Surgical History: Bladder Surgery, Breast Surgery, Orthopedic Surgery, Tubal Ligation Additional Past Surgical History / Comment(s): thyroid NODULE REMOVED. BILAT MASTECTOMY W/FLAP AND CHEMO 2012. COLONOSCOPY. D & C. BLADDER SUSPENSION; Shoulder Arthroscopy Past Anesthesia/Blood Transfusion Reactions: No Reported Reaction Past Psychological History: Anxiety, Depression Past Alcohol Use History: None Reported Past Drug Use History: None Reported - Past Family History Mother Family Medical History: No Reported History Father Family Medical History: No Reported History Additional Family Medical History / Comment(s): cousin had breast CA Medications and Allergies Home Medications Medication Instructions Recorded Confirmed Type Cariprazine HCl [Vraylar] 3 mg PO DAILY 03/08/19 06/17/20 History Capecitabine [Xeloda] 500 mg PO DIRECTED 06/17/20 06/17/20 History DULoxetine HCL [Cymbalta] 60 mg PO BID 06/17/20 06/17/20 History Gabapentin [Neurontin] 300 mg PO TID 06/17/20 06/17/20 History Levothyroxine Sodium [Synthroid] 100 mcg PO DAILY 06/17/20 06/17/20 History Omeprazole [PriLOSEC] 20 mg PO AC-BID 06/17/20 06/17/20 History Prochlorperazine [Compazine] 10 mg PO Q6H PRN 06/17/20 06/17/20 History Tolterodine Tartrate [Detrol LA] 4 mg PO DAILY 06/17/20 06/17/20 History ondansetron HCL [Zofran] 8 mg PO Q8HR PRN 06/17/20 06/17/20 History Allergies Allergy/AdvReac Type Severity Reaction Status Date / Time adhesive tape Allergy Rash/Hives Verified 06/17/20 10:17 tramadol HCl [From Ultr[facility]] Allergy Rash/Hives Verified 06/17/20 10:17 Physical Exam Vitals: Vital Signs Temp Pulse Resp BP Pulse Ox 06/17/20 12:21 106 H 20 96/64 99 06/17/20 11:00 115 H 18 92/65 97 06/17/20 10:28 110 H 16 101/67 98 06/17/20 09:16 98.5 F 60 18 79/59 100 Intake and Output 06/16/20 06/17/20 06/17/20 22:59 06:59 14:59 Other: Weight 68.492 kg GENERAL: The patient is alert and oriented x3, not in any acute distress. Well developed, well nourished. -HEENT: Pupils are round and equally reacting to light. EOMI. No scleral icterus. No conjunctival pallor. Normocephalic, atraumatic. No pharyngeal erythema. No thyromegaly. Looks dehydrated CARDIOVASCULAR: S1 and S2 present. No murmurs, rubs, or gallops. -PULMONARY: Chest is clear to auscultation, no wheezing or crackles. Right upper chest Port-A-Cath ABDOMEN: Soft, nontender, nondistended, normoactive bowel sounds. No palpable organomegaly. MUSCULOSKELETAL: No joint swelling or deformity. EXTREMITIES: No cyanosis, clubbing, or pedal edema. NEUROLOGICAL: Gross neurological examination did not reveal any focal deficits. SKIN: No rashes. No petechiae Results CBC & Chem 7: 06/17/20 10:14 06/17/20 10:14 Labs: Abnormal Lab Results - Last 24 Hours (Table) 06/17/20 06/17/20 Range/Units 10:14 10:14 WBC 0.6 L* (3.8-10.6) k/uL RBC 3.78 L (3.80-5.40) m/uL Hgb 10.4 L (11.4-16.0) gm/dL Hct 30.0 L (34.0-46.0) % MCV 79.3 L (80.0-100.0) fL RDW 18.0 H (11.5-15.5) % Plt Count 132 L (150-450) k/uL Sodium 122 L (137-145) mmol/L Chloride 91 L (98-107) mmol/L Glucose 141 H (74-99) mg/dL Total Bilirubin 2.4 H (0.2-1.3) mg/dL Total Protein 6.0 L (6.3-8.2) g/dL Albumin 3.1 L (3.5-5.0) g/dL Assessment and Plan Assessment: Dehydration associated with hypovolemia Hypovolemic hyponatremia Recent history of right breast cancer as well as chemotherapy Pancytopenia and leukopenia secondary to chemotherapy Plan: This is a pleasant 60 years old female who presents with signs and symptoms of gastroenteritis and dehydration, hyponatremia and in view of metastatic right breast cancer history. We will Monitor electrolytes included sodium. Monitor blood pressure. Consult and follow-up recommendation by oncology service. Check C. diff and stool studies and procalcitonin. Advance diet as tolerated, however keep the patient currently on liquid diet Labs and medication were reviewed.. Continue same treatment. Continue with symptomatic treatment. Resume home medication. Monitor lytes and vitals. DVT and GI prophylaxis. Further recommendations depends on the clinical course of the patient DVT prophylaxis: Subcutaneous heparin GI Prophylaxis: Ppi Prognosis is guarded
[2020-06-17] MEDS ORDERED: CEFEPIME 1 GM in SODIUM CHLORIDE 0.9% 50 ML IVPB STA (13:53)
[2020-06-17] MEDS ORDERED: ACETAMINOPHEN TAB 500 MG TAB PO STA (14:07)
--- NOTE | 2020-06-17 14:49 | XR ---
EXAMINATION TYPE: XR chest 2V DATE OF EXAM: 06/17/2020 COMPARISON: 12/01/2017 HISTORY: Fever TECHNIQUE: Frontal and lateral views of the chest are obtained. FINDINGS: There is no focal air space opacity, pleural effusion, or pneumothorax seen. The cardiac silhouette size is within normal limits. There is a port in the right pectoral region, catheter cour ses via the internal jugular vein approach and the tip is over the superior vena cava. Surgical clips are present over the right and left chest. Bone mineralization is reduced. There are overlying artif acts. The osseous structures are intact. IMPRESSION: No acute cardiopulmonary process.
--- NOTE | 2020-06-17 15:37 | P.CONS ---
History of Present Illness - Reason for Consult Consult date: 06/17/20 Hx: Metastatic Breast Cancer, Hyponatremia Requesting physician: Mario Tolliver - Chief Complaint diarrhea, fever, - History of Present Illness This is a very nice lady who was diagnosed with left breast cancer in .She had a core biopsy which confirmed invasive ductal carcinoma,she went to [facility],had further breast imaging including MRI,subsequently on )10/27/2012,she had a partial left breast mastectomy and sentinel nodes biopsy,the pathology revealed a 3.5cm,grade II,invasive carcinoma,one sentinel LN was involved with isolated tumor cell,DCIS which were present at the margin.She had a CT scan of chest/abdomen/pelvis and a bone scan which were negative for metastatic disease.She had re-excision on 12/27/2012 which revealed a residual focus of invasive carcinoma and DCIS at the margin.Her tumor was ER/AL+ and HER2/FILIBERTO positive by FISH. She received systemic chemotherapy with 4 cycles of AC and completed 12 weekly treatment with taxol/herceptin in June/2012. A repea MUGA scan at [facility] on 07/24/2012 revealed an EF of 55%. Repeat MUGA scan at [facility] on 11/22/2012 revealed an EF of 49%. Repeat MUGA scan on 02/27/2013 revealed further decline in EF to 39% and herceptin was discontinued (last 2 treatment were held). Repeat MUGA scan in revealed an EF of 52%. She started tamoxifen in . On 06/23/2015,serum estradiol,FSH,LH were consistent with postmenopause,tamoxifen was discontinued in and was placed on aromatase inhibitors,initially femara and then aromasin (she could not tolerate femara well) Bone density on 07/05/2016 revealed osteoporosis and was started on prolia. She did well until end of October/2017 when she presented with left axillary mass,U/S revealed very large left axillary node,she had a core biopsy of left axillary node at [place] on 11/17/2017 which was positive for recurrent breast cancer,ER+(80%),AL negative and HER2/FILIBERTO positive (3+). Bilateral breast MRI on 11/22/2017 revealed large left axillary mass,7.7cm extending to subpectoralis muscle and subclavian vein. On 11/24/2017,CT scan of chest/abdomen/pelvis revealed 6.5cm mass in left axilla with 3.5cm extension to subpectolaris,1.2cm right hilar node,1.6cm precranial node,2.3cm subcarinal node,2 RLL lung nodules (9 and 10mm) and 1.5cm liver lesion. On 12/03/2017,PET scan revealed suspicious uptake in area noted on CT scan and possible early metastatic disease. Echocardiogram on 11/29/2017 revealed EF of 55-60%. On 12/09/2017,she started taxotere/herceptin/perjeta. She had significant neutropenia/fever,which resolved and had mucositis which resolved by now,she had diarrhea also for few days. On 02/01/2018,repeat echocardiogram revealed EF of 45%-50%. On 02/24/2018,repeat MUGA scan revealed EF of 45% On 03/18/2018,repeat PET scan revealed significant improvement in her metastatic disease. She completed 6 cycles of THP on 03/24/2018. She started faslodex on 04/14/[address] was evaluated [address] Dr Arias,manager transport,on 05/05/2018,had a repeat echoc and was felt it is okay to continue with herceptin/pejeta Repeat PET scan of 06/17/2018,revealed evidence of progression in left axilla,perjeta/herceptin were discontinued. She started kadcyla on 07/06/2018,she is also on faslodex On 10/14/2018,repeat PET scan,results are revealed consistent with significant improvement. On 03/05/2019,repeat PET scan revealed evidence of disease progression,enlarging left axillary and subpectolaris nodes,mediastinel nodes and infra diaghroagmatic node. 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 This was last visit with our office. Hormone receptor status of most recent biopsy reviewed, her most recent biopsy was reported as triple negative. Plan was to start Xeloda. Although patient went for second opinion with Dr. Angelina Aguilar at the [facility] and we have not seen since. In review of Dr. Gil note he found her estrogen report could potentially be false positive with treatment of faslodex, although was unsure on Her2. Therefore I have asked our staff to obtain records from the time she was last seen in office and up to now. Review of her records from [facility] she received treatment with Trodelvy on 06/12/20 - No Growth Factor. Per Dr. Aguilar's notes: Biomarkers re-tested confirming triple negative breast cancer metastatic and she continued on xeloda till 05/2019 and this was discontinued due to progression PDL-1 ([id number]) was positive Immune cells >1% [employer] germline genetics panel negative 28 genes 05/24/19: Abraxane and Atezolimub - Complicated with hypothyroidism 09/11/19: Mediastinal adenopathy resolved, although persistent infraclavicular disease and received radiation to infracclavicular mass on left chest wall as well as SRS to brain lesion with Dr. Sue. She continued on abraxane and atelozumab until her recent repeat PET and MRI Brain. 05/29/2020: PET Scan Interval worsening mediastinal ayan disease, left subpectoral lymph nodes, left upper thorax and questionable progression in lungs. Therefore the next line treatment with Teodlvy was intiated on 06/14/20. Mention of worsening brain mets as well and she was sent for further evaluation with phase one clinical trial She now presents to [facility] with high grade Fevers 104. Neutropenic, dehydrated, and weak. Full samuels cultures performed, and broad spectrum antibiotics and antifungals started. Growth factors started as no documentation of growth factors fiven after her infusion . Review of Systems All systems: negative Constitutional: Reports as per HPI Past Medical History Past Medical History: Cancer Additional Past Medical History / Comment(s): BRAIN ANEURYSM 2007 REQUIRED COILING AT [facility]. BREAST CANCER 2012 & 10/2017,2019. HOSPITALIZED RECENTLY FOR FEVER AND LOW NEUTROPHILS. History of Any Multi-Drug Resistant Organisms: ESBL Year Discovered:: 01/05/18 MDRO Source:: ESBL URINE Past Surgical History: Bladder Surgery, Breast Surgery, Orthopedic Surgery, Tubal Ligation Additional Past Surgical History / Comment(s): thyroid NODULE REMOVED. BILAT MASTECTOMY W/FLAP AND CHEMO 2013. COLONOSCOPY. D & C. BLADDER SUSPENSION; Shoulder Arthroscopy Past Anesthesia/Blood Transfusion Reactions: No Reported Reaction Past Psychological History: Anxiety, Depression Past Alcohol Use History: None Reported Past Drug Use History: None Reported - Past Family History Mother Family Medical History: No Reported History Additional Family Medical History / Comment(s): Mother of burst colon Father Family Medical History: No Reported History Additional Family Medical History / Comment(s): cousin had breast CA Medications and Allergies Home Medications Medication Instructions Recorded Confirmed Type Cariprazine HCl [Vraylar] 3 mg PO DAILY 03/08/19 06/17/20 History Capecitabine [Xeloda] 500 mg PO DIRECTED 06/17/20 06/17/20 History DULoxetine HCL [Cymbalta] 60 mg PO BID 06/17/20 06/17/20 History Gabapentin [Neurontin] 300 mg PO TID 06/17/20 06/17/20 History Levothyroxine Sodium [Synthroid] 100 mcg PO DAILY 06/17/20 06/17/20 History Omeprazole [PriLOSEC] 20 mg PO AC-BID 06/17/20 06/17/20 History Prochlorperazine [Compazine] 10 mg PO Q6H PRN 06/17/20 06/17/20 History Tolterodine Tartrate [Detrol LA] 4 mg PO DAILY 06/17/20 06/17/20 History ondansetron HCL [Zofran] 8 mg PO Q8HR PRN 06/17/20 06/17/20 History Allergies Allergy/AdvReac Type Severity Reaction Status Date / Time adhesive tape Allergy Rash/Hives Verified 06/17/20 10:17 tramadol HCl [From Ultram] Allergy Rash/Hives Verified 06/17/20 10:17 Physical Exam Vitals: Vital Signs Temp Pulse Resp BP Pulse Ox 06/17/20 14:12 103.1 F H 114 H 22 101/70 96 06/17/20 12:21 106 H 20 96/64 99 06/17/20 11:00 115 H 18 92/65 97 06/17/20 10:28 110 H 16 101/67 98 06/17/20 09:16 98.5 F 60 18 79/59 100 Intake and Output 06/16/20 06/17/20 06/17/20 22:59 06:59 14:59 Other: Weight 68.492 kg - Constitutional General appearance: cooperative, no acute distress - EENT Eyes: EOMI ENT: NA/AT, normal oropharynx - Neck Neck: normal ROM - Respiratory Respiratory: bilateral: diminished - Cardiovascular Rhythm: regular Heart sounds: normal: S1, S2 foot Peripheral Edema: left: 2+ (Left Arm Lymphedema) - Gastrointestinal General gastrointestinal: hyperactive bowel sounds, soft, tenderness - Integumentary Integumentary: pale - Neurologic Neurologic: CNII-XII intact - Musculoskeletal Musculoskeletal: generalized weakness - Psychiatric Psychiatric: A&O x's 3, appropriate affect, intact judgment & insight Results CBC & Chem 7: 06/19/20 06:29 06/19/20 06:29 Labs: Abnormal Lab Results - Last 24 Hours (Table) 06/17/20 06/17/20 06/17/20 Range/Units 10:14 10:14 12:20 WBC 0.6 L* (3.8-10.6) k/uL RBC 3.78 L (3.80-5.40) m/uL Hgb 10.4 L (11.4-16.0) gm/dL Hct 30.0 L (34.0-46.0) % MCV 79.3 L (80.0-100.0) fL RDW 18.0 H (11.5-15.5) % Plt Count 132 L (150-450) k/uL Sodium 122 L (137-145) mmol/L Chloride 91 L (98-107) mmol/L Glucose 141 H (74-99) mg/dL Plasma Lactic Acid Jorge (0.7-2.0) mmol/L Total Bilirubin 2.4 H (0.2-1.3) mg/dL Total Protein 6.0 L (6.3-8.2) g/dL Albumin 3.1 L (3.5-5.0) g/dL Urine Protein 1+ H (Negative) Urine Ketones Trace H (Negative) Urine Blood Trace H (Negative) Urine Bacteria Rare H (None) /hpf Hyaline Casts 3 H (0-2) /lpf Urine Mucus Rare H (None) /hpf 06/17/20 Range/Units 14:00 WBC (3.8-10.6) k/uL RBC (3.80-5.40) m/uL Hgb (11.4-16.0) gm/dL Hct (34.0-46.0) % MCV (80.0-100.0) fL RDW (11.5-15.5) % Plt Count (150-450) k/uL Sodium (137-145) mmol/L Chloride (98-107) mmol/L Glucose (74-99) mg/dL Plasma Lactic Acid Jorge 0.6 L (0.7-2.0) mmol/L Total Bilirubin (0.2-1.3) mg/dL Total Protein (6.3-8.2) g/dL Albumin (3.5-5.0) g/dL Urine Protein (Negative) Urine Ketones (Negative) Urine Blood (Negative) Urine Bacteria (None) /hpf Hyaline Casts (0-2) /lpf Urine Mucus (None) /hpf Chest x-ray: report reviewed Abdominal x-ray: report reviewed Assessment and Plan Plan: Assessment and Recommendations: Persistent Diarrhea with Incontinence: - Stool Studies - C diff negative - Questran - nPO at this time Metastatic Breast Cancer: - Most recent Triple Negative - Recent progression on PET and MRI brain in May - Status POst first treatment with Trodelvy on 06/13/20 - No documented growth factor, she follows Dr. Aguilar at [facility] Neutropenic Fever: - Samuels Cultures - Broad antibiotics - ID to follow Hypokalemia Hyponatremia Dehydration Daily CBC, CMP and check Coags and hepatic today Add Vanco until ID evaluates and/or cultures return
[2020-06-17] MEDS ORDERED: VANCOMYCIN IV PER PHARMACY 1 EACH MISC MISCELLANE PRN (15:38)
[2020-06-17 16:02] LABS: INR 1.2 (<1.2); Partial Thromboplastin Time 23.6 sec (22.0-30.0); Prothrombin Time 12.4 sec (9.0-12.0)
[2020-06-17] MEDS: FLUCONAZOLE 100 MG TAB PO SCH (18:06)
[2020-06-17] MEDS: FILGRASTIM-SNDZ 480 MCG/0.8 ML SYRINGE SQ SCH (18:06)
[2020-06-17] MEDS: VANCOMYCIN 1,250 MG in SODIUM CHLORIDE 0.9% 250 ML IVPB SCH (18:06)
[2020-06-17] MEDS: DULoxetine HCL 60 MG CAPSULE.DR PO SCH (20:52)
[2020-06-17 22:07] LABS: African American GFR (CKD) >90 (>60 ml/min/1.73 sqM); Anion Gap 7 mmol/L; Blood Urea Nitrogen 10 mg/dL (7-17); Calcium 9.1 mg/dL (8.4-10.2); Carbon Dioxide 21 mmol/L (22-30); Chloride 99 mmol/L (98-107); Glucose 120 mg/dL (74-99); Non-African American GFR(CKD) >90 (>60 ml/min/1.73 sqM); Sodium 127 mmol/L (137-145)
[2020-06-17 22:39] LABS: Potassium 4.6 mmol/L (3.5-5.1)
[2020-06-17] MEDS ORDERED: CEFEPIME 2 GM in SODIUM CHLORIDE 0.9% 50 ML IVPB SCH (23:00)
[2020-06-18] MEDS: CEFEPIME 2 GM in SODIUM CHLORIDE 0.9% 100 ML IVPB SCH ×4 (00:06→23:13)
[2020-06-18] MEDS ORDERED: CEFEPIME 1 GM in SODIUM CHLORIDE 0.9% 50 ML IVPB SCH (02:00)
[2020-06-18 04:21] LABS: Albumin 3.5 g/dL (3.80-4.90); Albumin/Globulin Ratio 1.75 (1.60-3.17); Bilirubin, Conjugated 1.1 mg/dL (0.20-0.40); Bilirubin,Unconjugated 0.5 mg/dL; Total Bilirubin 1.6 mg/dL (0.2-1.2); Total Protein 5.5 g/dL (6.2-8.2)
[2020-06-18] MEDS: SODIUM CHLORIDE 0.9% 1,000 ML IV SCH ×2 (05:09→16:03)
[2020-06-18] MEDS: LEVOTHYROXINE 100 MCG TAB PO SCH (05:59)
[2020-06-18] MEDS: VANCOMYCIN 1,250 MG in SODIUM CHLORIDE 0.9% 250 ML IVPB SCH ×2 (06:01→17:44)
--- NOTE | 2020-06-18 06:43 | CONS ---
CONSULTATION DATE OF SERVICE: 06/17/2020 REASON FOR CONSULTATION: Febrile neutropenia. HISTORY OF PRESENT ILLNESS: The patient is a 60-year-old female with a past medical history significant for metastatic breast cancer with mets to the brain in this patient with chemotherapy through right chest wall MediPort. Patient presenting to the ER this morning for evaluation of generalized weakness, dehydration, and fever for the last few days. The patient denies having any headache or URI symptoms. Patient denies having any chest pain or shortness of breath. Very minimal cough. Denies having any nausea, no vomiting. No abdominal pain, no diarrhea and no significant urinary symptoms. On presentation hospital the patient was afebrile. Subsequently did spike a fever of 103 Fahrenheit. The patient was tachycardic. The patient did have leukopenia and neutropenia. Kidney function was normal. Liver enzymes are normal. Procalcitonin 7.36. Urine was negative. Seaman PCR was negative. Stool for C difficile is negative. The patient did have a chest x-ray that was negative. The patient was started on cefepime and vancomycin. Infectious Disease was consulted for further management of antibiotic therapy. REVIEW OF SYSTEMS: Positive points have been mentioned in HPI. Rest of systems are negative. PAST MEDICAL HISTORY: Metastatic breast cancer with mets to the brain. Patient did have history of brain aneurysm. Previous history of ESBL E coli urinary tract infection. PAST SURGICAL HISTORY: Breast surgery, bladder surgery, tubal ligation, bilateral mastectomy. SOCIAL HISTORY: Denies any history of smoking, drinking or drug use. FAMILY HISTORY: No pertinent findings noticed. ALLERGIES: TRAMADOL. MEDICATIONS: The patient is currently on cefepime 1 g q.12h. Patient is on Cymbalta, , Diflucan, Synthroid, Narcan, Zofran, Protonix, Compazine, and vancomycin pharmacy to dose. PHYSICAL EXAMINATION: Her blood pressure is 113/68 with a pulse of 90, temperature 98.1, T-max 103.1. She is 95% on room air. GENERAL DESCRIPTION: The patient is a middle-aged female lying in bed in no distress. HEENT: Shows pallor, no scleral icterus. Oral mucous membrane is dry. NECK: Trachea central. No thyromegaly. LUNGS: Unlabored breathing, clear to auscultation. No wheeze or crackle. HEART: S1, S2. Regular rate and rhythm. ABDOMEN: Soft, no tenderness. No guarding or rigidity. EXTREMITIES: No edema of the feet. SKIN: Examination shows no rash or mass palpable. NEUROLOGICALLY: The patient is awake, alert, oriented x3. Mood and affect normal. LABS: Hemoglobin is 10.4, white count 0.6, BUN of 10, creatinine 0.57, 27. Liver enzymes are normal. Procalcitonin 7.36. Urine is negative. Seaman PCR negative. Stool for C diff negative. Chest is negative. DIAGNOSTIC IMPRESSION: Patient with febrile neutropenia in this patient who did have a history of metastatic breast cancer with mets to the brain who presented to the hospital with fever, weakness. Workup initial so far negative. Negative chest x-ray. Abdominal is soft on examination. Urine has been negative. Source possible port. PLAN: 1. Blood culture has been obtained and those will be followed. 2. Vancomycin, pharmacy to dose target of 15 while watching the kidney function closely. 3. Increase the dose of cefepime to 2 grams q.8 hours. 4. We will follow on clinical condition and culture to further adjust medication if needed. Thank you for this consultation. Will follow this patient along with you. MMODL / IJN: [id number] /
[2020-06-18] MEDS: PANTOPRAZOLE 40 MG/10 ML VIAL IV SCH (07:51)
[2020-06-18] MEDS: DULoxetine HCL 60 MG CAPSULE.DR PO SCH ×2 (07:51→22:00)
[2020-06-18] MEDS: FLUCONAZOLE 100 MG TAB PO SCH (07:52)
[2020-06-18 10:52] LABS: Basophils # (A) 0.01 X 10*3/uL (0.00-0.10); Basophils % (A) 1.3 %; Eosinophils # (A) 0.05 X 10*3/uL (0.04-0.35); Eosinophils % (A) 6.5 %; HCT 28.6 % (37.2-46.3); HGB 8.8 g/dL (12.0-15.0); Lymphocytes # (A) 0.37 X 10*3/uL (0.90-5.00); Lymphocytes % (A) 48.1 %; MCH 26.1 pg (27.0-32.0); MCHC 30.8 g/dL (32.0-37.0); MCV 84.9 fL (80.0-97.0); Mean Platelet Volume 10.9 fL (9.5-12.2); Monocytes # (A) 0.05 X 10*3/uL (0.20-1.00); Monocytes % (A) 6.5 %; Neutrophils # (A) 0.29 X 10*3/uL (1.80-7.70); Neutrophils % (A) 37.6 %; Platelet Count 107 X 10*3/uL (140-440); RBC 3.37 X 10*6/uL (4.10-5.20); RDW 17.6 % (11.5-14.5); WBC 0.77 X 10*3/uL (4.50-10.00)
[2020-06-18 11:26] VITALS: BMI 31.5
[2020-06-18 11:30] LABS: African American GFR (CKD) 123.6 (60.0-200.0); Albumin 3.5 g/dL (3.80-4.90); Albumin/Globulin Ratio 1.4 (1.60-3.17); Anion Gap 11.4 mmol/L (4.00-12.00); Bilirubin, Conjugated 0.6 mg/dL (0.20-0.40); Bilirubin,Unconjugated 0.3 mg/dL; Calcium 8.9 mg/dL (8.7-10.3); Carbon Dioxide 21.6 mmol/L (21.6-31.8); Globulin 2.5 g/dL (1.6-3.3); Magnesium 1.8 mg/dL (1.5-2.4); Non-African American GFR(CKD) 106.7 (60.0-200.0); Potassium 3.7 mmol/L (3.5-5.5); Total Bilirubin 0.9 mg/dL (0.2-1.2)
--- NOTE | 2020-06-18 12:26 | P.PN ---
Subjective This is a pleasant 60 years old female was recently diagnosed with right breast cancer undergoing chemotherapy presents with decreased oral intake and diarrhea and hyponatremia. She is a patient of Dr. Bland and she follow up with [facility] with Dr. bessie cox for her cancer treatment. She's been getting chemotherapy for her right breast cancer with metastasis to the brain and the left chest wall since 2018, her last chemotherapy was last about 5 days ago. Also she is status post radiotherapy with Dr. Sue last summer. Presents because of continuous diarrhea for the last 5-6 days, her diarrhea is watery and runny every half hour to 1 hour as per patient with no blood. No abdominal pain. No nausea vomiting but she has decreased oral intake and decreased appetite, she felt more weak today, dehydrated and delirious. She states that usually have both systolic blood pressure is 120 but on admission was on 90s. She feels dizzy but did not pass out She denies smoking, alcohol or illicit drugs She is slightly tachycardic and hypotensive with blood pressure 96/64. Labs showing pancytopenia with severely low WBC at 0.6K and mild anemia at 10.4 and mild thrombocytopenia on 1:30 2K. Is 122. Rest of BMP and liver enzymes are unremarkable. EKG showing sinus tachycardia at [address]-T changes. In the emergency room she received Pepcid, Zofran and normal saline 1 L and continued at 75 mL/h 06/18/2020 Patient sitting at bedside, no distress, no significant pain, she is only concerned about her ongoing diarrhea although it's slow down a little bit however is a still very frequent. No abdominal pain. No nausea vomiting. Patient still a liquid diet Yesterday patient spiked fever at 104 and antibiotics were added by oncology team including IV vancomycin, cefepime and fluconazole with panculture ordered and infectious disease consult placed who recommended to continue with the same antibiotic of vancomycin and cefepime On reviewing the records and not from hematology/oncology team looks like patient has left breast cancer with recurrent left axillary mass and infraclavicular mass status post radiotherapy. She has extensive history as per oncology notes. Recent PET scan and MRI of the brain showing areas of metastasis and worsening mediastinal ayan disease and possible metastasis to the left flank as well. Currently patient is on filgastrim . Also she is on normal saline at 75 mL/h, blood pressure this morning is 94/66 and 108/73, she is slightly tachycardic at 109 and she has slight fever at 99.7. She still has pancytopenia barely leukopenia with WBC 0.77K, mild anemia 8.8 and thrombocytopenia 1 or 7K. Sodium improved to 129, platelets to 127 yesterday. Procalcitonin is elevated 4.49. Review of Systems CONSTITUTIONAL: No fever, no malaise, no fatigue. HEENT: No recent visual problems or hearing problems. Denied any sore throat. CARDIOVASCULAR: No orthopnea, PND, no palpitations, no syncope. PULMONARY: No shortness of breath, no cough, no hemoptysis. GASTROINTESTINAL: no nausea, no vomiting, no abdominal pain. Normoactive bowel sounds. NEUROLOGICAL: No headaches, no weakness, no numbness. HEMATOLOGICAL: Denies any bleeding or petechiae. Active Medications Generic Name Dose Route Start Last Admin Trade Name Freq PRN Reason Stop Dose Admin Duloxetine HCl 60 mg 06/17/20 21:00 06/18/20 07:51 Duloxetine Hcl 60 Mg Capsule. PO 60 mg BID LIONEL Administration Filgrastim-Sndz 480 mcg 06/17/20 18:00 06/17/20 18:06 Filgrastim-Sndz 480 Mcg/0.8 Ml Syringe SQ 480 mcg DAILY@1800 LIONEL Administration Fluconazole 100 mg 06/17/20 15:45 06/18/20 07:52 Fluconazole 100 Mg Tab PO 100 mg DAILY LIONEL Administration Sodium Chloride 1,000 mls @ 75 mls/hr 06/17/20 12:00 06/18/20 05:09 Saline 0.9% IV 75 mls/hr .[id number] LIONEL Administration Vancomycin HCl 1,250 mg/ 250 mls @ 125 mls/hr 06/17/20 18:00 06/18/20 06:01 Sodium Chloride IVPB 125 mls/hr Q12H LIONEL Administration Cefepime HCl 2 gm/ Sodium 100 mls @ 25 mls/hr 06/17/20 23:00 06/18/20 07:51 Chloride IVPB 25 mls/hr Q8H LIONEL Administration Levothyroxine Sodium 100 mcg 06/18/20 06:30 06/18/20 05:59 Levothyroxine 100 Mcg Tab PO 100 mcg DAILY@0630 LIONEL Administration Naloxone HCl 0.2 mg 06/17/20 11:53 Naloxone 0.4 Mg/Ml 1 Ml Vial IV Q2M PRN Opioid Reversal Ondansetron HCl 4 mg 06/17/20 11:53 Ondansetron 4 Mg/2 Ml Vial IVP Q8HR PRN Nausea And Vomiting Pantoprazole Sodium 40 mg 06/18/20 09:00 06/18/20 07:51 Pantoprazole 40 Mg/10 Ml Vial IV 40 mg DAILY LIONEL Administration Prochlorperazine Maleate 10 mg 06/17/20 12:39 Prochlorperazine 10 Mg Tab PO Q6H PRN Nausea And Vomiting Objective - Vital Signs Vital signs: Vital Signs Temp 97.6 F 06/18/20 11:15 Pulse 109 H 06/18/20 11:15 Resp 18 06/18/20 11:15 BP 108/73 06/18/20 11:15 Pulse Ox 98 06/18/20 11:15 Intake & Output 06/17/20 06/18/20 06/18/20 18:59 06:59 18:59 Intake Total 350 Balance 350 Weight 68.492 kg 68.492 kg Intake: Intake, IV Titration 350 Amount Cefepime 1 gm In Sodium 50 Chloride 0.9% 50 ml @ 100 mls/hr IVPB ONCE STA Rx# :[id number] Sodium Chloride 0.9% 1, 300 000 ml @ 75 mls/hr IV . [id number] LIONEL Rx#:[id number] Other: Voiding Method Toilet # Voids 2 2 # Bowel Movements 1 1 1 - Exam GENERAL: The patient is alert and oriented x3, not in any acute distress. Well developed, well nourished. HEENT: Pupils are round and equally reacting to light. EOMI. No scleral icterus. No conjunctival pallor. Normocephalic, atraumatic. No pharyngeal erythema. No thyromegaly. CARDIOVASCULAR: S1 and S2 present. No murmurs, rubs, or gallops. PULMONARY: Chest is clear to auscultation, no wheezing or crackles. ABDOMEN: Soft, nontender, nondistended, normoactive bowel sounds. No palpable organomegaly. MUSCULOSKELETAL: No joint swelling or deformity. EXTREMITIES: No cyanosis, clubbing, or pedal edema. NEUROLOGICAL: Gross neurological examination did not reveal any focal deficits. SKIN: No rashes. no petechiae. - Labs CBC & Chem 7: 06/18/20 05:29 06/18/20 05:29 Labs: Abnormal Lab Results - Last 24 Hours (Table) 06/17/20 06/17/20 06/17/20 Range/Units 10:18 12:20 14:00 WBC (4.50-10.00) X 10*3/uL RBC (4.10-5.20) X 10*6/uL Hgb (12.0-15.0) g/dL Hct (37.2-46.3) % MCH (27.0-32.0) pg MCHC (32.0-37.0) g/dL RDW (11.5-14.5) % Plt Count (140-440) X 10*3/uL Plt Count Comment Neutrophils # (1.80-7.70) X 10*3/uL Lymphocytes # (0.90-5.00) X 10*3/uL Monocytes # (0.20-1.00) X 10*3/uL PT (9.0-12.0) sec INR (<1.2) Sodium (137-145) mmol/L Carbon Dioxide (22-30) mmol/L BUN (9.0-27.0) mg/dL Creatinine (0.6-1.5) mg/dL Glucose (74-99) mg/dL Plasma Lactic Acid Jorge 0.6 L (0.7-2.0) mmol/L Total Bilirubin (0.2-1.2) mg/dL Conjugated Bilirubin (0.20-0.40) mg/dL Total Protein (6.2-8.2) g/dL Albumin (3.80-4.90) g/dL Albumin/Globulin Ratio (1.60-3.17) g/dL Procalcitonin 7.36 H (0.02-0.09) ng/mL Urine Protein 1+ H (Negative) Urine Ketones Trace H (Negative) Urine Blood Trace H (Negative) Urine Bacteria Rare H (None) /hpf Hyaline Casts 3 H (0-2) /lpf Urine Mucus Rare H (None) /hpf 06/17/20 06/17/20 06/17/20 Range/Units 15:23 15:23 21:40 WBC (4.50-10.00) X 10*3/uL RBC (4.10-5.20) X 10*6/uL Hgb (12.0-15.0) g/dL Hct (37.2-46.3) % MCH (27.0-32.0) pg MCHC (32.0-37.0) g/dL RDW (11.5-14.5) % Plt Count (140-440) X 10*3/uL Plt Count Comment Neutrophils # (1.80-7.70) X 10*3/uL Lymphocytes # (0.90-5.00) X 10*3/uL Monocytes # (0.20-1.00) X 10*3/uL PT 12.4 H (9.0-12.0) sec INR 1.2 H (<1.2) Sodium 127 L (137-145) mmol/L Carbon Dioxide 21 L (22-30) mmol/L BUN (9.0-27.0) mg/dL Creatinine (0.6-1.5) mg/dL Glucose 120 H (74-99) mg/dL Plasma Lactic Acid Jorge (0.7-2.0) mmol/L Total Bilirubin 1.6 H (0.2-1.2) mg/dL Conjugated Bilirubin 1.10 H (0.20-0.40) mg/dL Total Protein 5.5 L (6.2-8.2) g/dL Albumin 3.50 L (3.80-4.90) g/dL Albumin/Globulin Ratio (1.60-3.17) g/dL Procalcitonin (0.02-0.09) ng/mL Urine Protein (Negative) Urine Ketones (Negative) Urine Blood (Negative) Urine Bacteria (None) /hpf Hyaline Casts (0-2) /lpf Urine Mucus (None) /hpf 06/18/20 06/18/20 06/18/20 Range/Units 05:29 05:29 05:29 WBC 0.77 L* (4.50-10.00) X 10*3/uL RBC 3.37 L (4.10-5.20) X 10*6/uL Hgb 8.8 L (12.0-15.0) g/dL Hct 28.6 L (37.2-46.3) % MCH 26.1 L (27.0-32.0) pg MCHC 30.8 L (32.0-37.0) g/dL RDW 17.6 H (11.5-14.5) % Plt Count 107 L (140-440) X 10*3/uL Plt Count Comment DECREASED A Neutrophils # 0.29 L* (1.80-7.70) X 10*3/uL Lymphocytes # 0.37 L (0.90-5.00) X 10*3/uL Monocytes # 0.05 L (0.20-1.00) X 10*3/uL PT (9.0-12.0) sec INR (<1.2) Sodium 129 L (137-145) mmol/L Carbon Dioxide (22-30) mmol/L BUN 7.0 L (9.0-27.0) mg/dL Creatinine 0.5 L (0.6-1.5) mg/dL Glucose 117 H (74-99) mg/dL Plasma Lactic Acid Jorge (0.7-2.0) mmol/L Total Bilirubin (0.2-1.2) mg/dL Conjugated Bilirubin 0.60 H (0.20-0.40) mg/dL Total Protein 6.0 L (6.2-8.2) g/dL Albumin 3.50 L (3.80-4.90) g/dL Albumin/Globulin Ratio 1.40 L (1.60-3.17) g/dL Procalcitonin 4.49 H (0.02-0.09) ng/mL Urine Protein (Negative) Urine Ketones (Negative) Urine Blood (Negative) Urine Bacteria (None) /hpf Hyaline Casts (0-2) /lpf Urine Mucus (None) /hpf Microbiology - Last 24 Hours (Table) 06/17/20 14:45 Stool Culture - Preliminary Stool 06/17/20 13:55 Urine Culture - Preliminary Urine,Voided Assessment and Plan Assessment: Febrile neutropenia Dehydration associated with hypovolemia Hypovolemic hyponatremia Recent history of right breast cancer as well as chemotherapy Pancytopenia and leukopenia secondary to chemotherapy Plan: This is a pleasant 60 years old female who presents with signs and symptoms of gastroenteritis and dehydration, hyponatremia and in view of metastatic right breast cancer history. We will Monitor electrolytes included sodium. Monitor blood pressure. Consult and follow-up recommendation by oncology service. Follow-up recommendation of infectious disease and antibiotics recommendation, Follow-up pending culture and blood culture. Advance diet as tolerated, however keep the patient currently on liquid diet Labs and medication were reviewed.. Continue same treatment. Continue with symptomatic treatment. Resume home medication. Monitor lytes and vitals. DVT and GI prophylaxis. Further recommendations depends on the clinical course of the patient DVT prophylaxis: Subcutaneous heparin GI Prophylaxis: Ppi Prognosis is guarded
[2020-06-18] MEDS ORDERED: IOPAMIDOL CONTRAST (ORAL USE) VIAL PO PRN (13:23)
[2020-06-18] MEDS: CHOLESTYRAMINE (WITH SUGAR) 4 GM PACKET PO SCH ×2 (14:35→17:44)
[2020-06-18] MEDS: FILGRASTIM-SNDZ 480 MCG/0.8 ML SYRINGE SQ SCH (17:44)
--- NOTE | 2020-06-18 19:33 | XR ---
EXAMINATION TYPE: XR abdomen 2V DATE OF EXAM: 06/18/2020 COMPARISON: None HISTORY: Diarrhea for 5 days. TECHNIQUE: 3 views FINDINGS: I see no evidence of intestinal obstruction or pneumoperitoneum. There is some gas in the t ransverse colon and left colon without any significant dilation. The lung bases are clear. There are surgical clips in the pelvis. IMPRESSION: Nonacute abdomen. No evidence of a bowel obstruction.
--- NOTE | 2020-06-18 19:41 | PN ---
PROGRESS NOTE DATE OF SERVICE: 06/18/2020 REASON FOR FOLLOWUP: Febrile neutropenia. INTERVAL HISTORY: The patient is currently afebrile. The patient is breathing comfortably. The patient denies having any chest pain or shortness of breath or cough. No abdominal pain and no diarrhea. PHYSICAL EXAMINATION: Blood pressure 108/73, pulse 109, temperature 97.6. She is 98% on room air. General description is a middle-aged female lying in bed in no distress. RESPIRATORY SYSTEM: Unlabored breathing. Clear to auscultation anteriorly. HEART: S1, S2. Regular rate and rhythm. ABDOMEN: Soft. No tenderness. LABS: Hemoglobin 8.9, white count 0.77, BUN of 7, creatinine 0.5. Culture so far blood is showing Gram-positive cocci. DIAGNOSTIC IMPRESSION AND PLAN: Patient with febrile neutropenia, now with evidence of Gram-positive bacteremia, questionably related to her port. While waiting for final identification of this pathogen, patient is covered with vancomycin. Blood culture will be repeated to document clearance of bacteremia. Continue supportive care. MMODL / IJN: [id number] /
[2020-06-18] MEDS: HEPARIN SODIUM,PORCINE 5,000 UNIT/ML 1 ML VIAL SQ SCH (22:00)
[2020-06-18 23:58] LABS: Cancer Antigen 153 8.1 U/mL (0.0-32.3)
[2020-06-19] MEDS: SODIUM CHLORIDE 0.9% 1,000 ML IV SCH ×2 (06:23→16:50)
[2020-06-19] MEDS: LEVOTHYROXINE 100 MCG TAB PO SCH (06:26)
[2020-06-19] MEDS: VANCOMYCIN 1,250 MG in SODIUM CHLORIDE 0.9% 250 ML IVPB SCH ×3 (06:27→21:51)
[2020-06-19] MEDS: PANTOPRAZOLE 40 MG/10 ML VIAL IV SCH (08:12)
[2020-06-19] MEDS: FLUCONAZOLE 100 MG TAB PO SCH (08:13)
[2020-06-19] MEDS: DULoxetine HCL 60 MG CAPSULE.DR PO SCH ×2 (08:13→22:10)
[2020-06-19] MEDS: HEPARIN SODIUM,PORCINE 5,000 UNIT/ML 1 ML VIAL SQ SCH ×2 (08:13→22:10)
[2020-06-19] MEDS: CEFEPIME 2 GM in SODIUM CHLORIDE 0.9% 100 ML IVPB SCH ×2 (08:42→14:44)
[2020-06-19 10:35] LABS: ALT 23 U/L (4-34); AST 20 U/L (14-36); African American GFR (CKD) >90 (>60 ml/min/1.73 sqM); Albumin 2.7 g/dL (3.5-5.0); Alkaline Phosphatase 90 U/L (38-126); Anion Gap 8 mmol/L; Blood Urea Nitrogen 7 mg/dL (7-17); Calcium 9.5 mg/dL (8.4-10.2); Carbon Dioxide 21 mmol/L (22-30); Chloride 103 mmol/L (98-107); Globulin 2.8 g/dL; Glucose 105 mg/dL (74-99); Non-African American GFR(CKD) >90 (>60 ml/min/1.73 sqM); Potassium 3.1 mmol/L (3.5-5.1); Sodium 132 mmol/L (137-145); Total Bilirubin 0.6 mg/dL (0.2-1.3); Total Protein 5.5 g/dL (6.3-8.2)
[2020-06-19 10:44] LABS: Anisocytosis Slight; HCT 26.1 % (34.0-46.0); Hypochromasia Slight; MCH 26.1 pg (25.0-35.0); MCHC 31.8 g/dL (31.0-37.0); MCV 82.1 fL (80.0-100.0); Mean Platelet Volume 8.9; Microcytosis Slight; RBC 3.17 m/uL (3.80-5.40); RDW 18.2 % (11.5-15.5)
[2020-06-19 10:51] LABS: HGB 8.3 gm/dL (11.4-16.0); WBC 0.7 k/uL (3.8-10.6)
--- NOTE | 2020-06-19 11:14 | P.CONS ---
History of Present Illness - Reason for Consult Consult date: 06/18/20 brain mets Requesting physician: Sanju Oswald - Chief Complaint diarrhea, dehydration - History of Present Illness The patient is a 60-year-old female initially diagnosed with a stage IIA (pT2, pN0(i+), M0) grade 2 invasive ductal carcinoma of the left breast, triple p ositive. She underwent mastectomy with TRAM flap followed by adjuvant chemotherapy. In 2018, she was found to have recurrent axillary and mediastinal adenopathy with lung and liver lesions - triple negative at this time. She has undergone several lines of therapy, and recently has responded well to immunotherapy but has an area in the left axillary region with recent progression. This was treated with hypofractionated radiotherapy finishing on 10/30/2019. She also was found to have 2 separate DARK ROOM ATTENDANT lesions, which were managed with SRS finishing on 11/06/2019. She recently had further progression with mediastinal/subpectoral adenopathy and recently started Trodelvy. The patient reports that she developed significant diarrhea, nausea without vomiting and poor oral intake several days after her second cycle of chemotherapy. She was subsequently hospitalized on June 17 and found to be neutropenic with fever as well as being dehydrated. The patient states that over the past couple of days she has improved. She was having very frequent watery bowel movements at home, but this seems to be slowly improving. C. difficile testing was negative. The patient follows with medical oncology at [facility]. She recently underwent an MRI on May 22 which revealed a possible new 3 mm lesion in the right parieto-occipital region. I have the report but not the disc for this study. The patient was planning outpatient follow-up in our clinic prior to being hospitalized. Today the patient reports no difficulty with headache, nausea or vomiting but does still have some generalized weakness. Review of Systems Constitutional: Reports fever Eyes: denies blurred vision Ears: deny: decreased hearing Ears, nose, mouth and throat: Denies dysphagia, Denies headache Cardiovascular: Denies chest pain Respiratory: Denies cough Gastrointestinal: Reports change in bowel habits, Reports diarrhea, Denies abdominal pain Genitourinary: Denies dysuria, Denies flank pain Integumentary: Denies rash Neurological: Denies aphasia, Denies confusion Psychiatric: Denies memory loss Past Medical History Past Medical History: Cancer Additional Past Medical History / Comment(s): BRAIN ANEURYSM 2007 REQUIRED COILING AT [facility]. BREAST CANCER 2012 & 10/2017,2019. HOSPITALIZED RECENTLY FOR FEVER AND LOW NEUTROPHILS. History of Any Multi-Drug Resistant Organisms: ESBL Year Discovered:: 01/05/18 MDRO Source:: ESBL URINE Past Surgical History: Bladder Surgery, Breast Surgery, Orthopedic Surgery, Tubal Ligation Additional Past Surgical History / Comment(s): thyroid NODULE REMOVED. BILAT MASTECTOMY W/FLAP AND CHEMO 2012. COLONOSCOPY. D & C. BLADDER SUSPENSION; Shoulder Arthroscopy Past Anesthesia/Blood Transfusion Reactions: No Reported Reaction Past Psychological History: Anxiety, Depression Past Alcohol Use History: None Reported Past Drug Use History: None Reported - Past Family History Mother Family Medical History: No Reported History Additional Family Medical History / Comment(s): Mother of burst colon Father Family Medical History: No Reported History Additional Family Medical History / Comment(s): cousin had breast CA Medications and Allergies Home Medications Medication Instructions Recorded Confirmed Type Cariprazine HCl [Vraylar] 3 mg PO DAILY 03/08/19 06/17/20 History Capecitabine [Xeloda] 500 mg PO DIRECTED 06/17/20 06/17/20 History DULoxetine HCL [Cymbalta] 60 mg PO BID 06/17/20 06/17/20 History Gabapentin [Neurontin] 300 mg PO TID 06/17/20 06/17/20 History Levothyroxine Sodium [Synthroid] 100 mcg PO DAILY 06/17/20 06/17/20 History Omeprazole [PriLOSEC] 20 mg PO AC-BID 06/17/20 06/17/20 History Prochlorperazine [Compazine] 10 mg PO Q6H PRN 06/17/20 06/17/20 History Tolterodine Tartrate [Detrol LA] 4 mg PO DAILY 06/17/20 06/17/20 History ondansetron HCL [Zofran] 8 mg PO Q8HR PRN 06/17/20 06/17/20 History Allergies Allergy/AdvReac Type Severity Reaction Status Date / Time adhesive tape Allergy Rash/Hives Verified 06/17/20 10:17 tramadol HCl [From Ultram] Allergy Rash/Hives Verified 06/17/20 10:17 Physical Exam Vitals: Vital Signs Temp Pulse Resp BP Pulse Ox 06/19/20 04:20 97.9 F 78 16 91/57 97 06/18/20 20:42 98.3 F 100 18 95/64 96 06/18/20 11:15 97.6 F 109 H 18 108/73 98 Intake and Output 06/18/20 06/19/20 06/19/20 22:59 06:59 14:59 Intake Total 350 Balance 350 Intake: Intake, IV Titration 350 Amount Cefepime 2 gm In Sodium 100 Chloride 0.9% 100 ml @ 25 mls/hr IVPB Q8H LIONEL Rx#: [id number] Vancomycin 1,250 mg In 250 Sodium Chloride 0.9% 250 ml @ 125 mls/hr IVPB Q12H LIONEL Rx#:[id number] Other: Voiding Method Toilet # Voids 3 # Bowel Movements 1 - Constitutional General appearance: no acute distress - EENT Eyes: EOMI, PERRLA ENT: hearing grossly normal - Neck Neck: no lymphadenopathy - Respiratory Respiratory: bilateral: CTA - Cardiovascular Rhythm: regular - Gastrointestinal General gastrointestinal: no distended, no tenderness - Integumentary Integumentary: no calor, no cellulitis - Neurologic Neurologic: CNII-XII intact - Musculoskeletal Musculoskeletal: generalized weakness, strength equal bilaterally - Psychiatric Psychiatric: A&O x's 3, appropriate affect Results CBC & Chem 7: 06/19/20 06:29 06/19/20 06:29 Labs: Abnormal Lab Results - Last 24 Hours (Table) 06/17/20 06/18/20 06/18/20 Range/Units 14:25 05:29 05:29 RBC (3.80-5.40) m/uL Hgb (11.4-16.0) gm/dL Hct (34.0-46.0) % RDW (11.5-15.5) % Sodium 129 L (135-145) mmol/L Potassium (3.5-5.1) mmol/L Carbon Dioxide (22-30) mmol/L BUN 7.0 L (9.0-27.0) mg/dL Creatinine 0.5 L (0.6-1.5) mg/dL Glucose 117 H (70-110) mg/dL Conjugated Bilirubin 0.60 H (0.20-0.40) mg/dL Total Protein 6.0 L (6.2-8.2) g/dL Albumin 3.50 L (3.80-4.90) g/dL Albumin/Globulin Ratio 1.40 L (1.60-3.17) g/dL Procalcitonin 4.49 H (0.02-0.09) ng/mL Stool Lactoferrin POSITIVE A (NEGATIVE) 06/19/20 06/19/20 Range/Units 06:29 06:29 RBC 3.17 L (3.80-5.40) m/uL Hgb 8.3 L D (11.4-16.0) gm/dL Hct 26.1 L (34.0-46.0) % RDW 18.2 H (11.5-15.5) % Sodium 132 L (135-145) mmol/L Potassium 3.1 L (3.5-5.1) mmol/L Carbon Dioxide 21 L (22-30) mmol/L BUN (9.0-27.0) mg/dL Creatinine (0.6-1.5) mg/dL Glucose 105 H (70-110) mg/dL Conjugated Bilirubin (0.20-0.40) mg/dL Total Protein 5.5 L (6.2-8.2) g/dL Albumin 2.7 L (3.80-4.90) g/dL Albumin/Globulin Ratio (1.60-3.17) g/dL Procalcitonin (0.02-0.09) ng/mL Stool Lactoferrin (NEGATIVE) Microbiology - Last 24 Hours (Table) 06/17/20 13:55 Urine Culture - Final Urine,Voided 06/17/20 14:00 Blood Culture Gram Stain - Preliminary Blood Blood Culture - Preliminary Coagulase Negative Staph 06/17/20 15:08 Blood Culture - Preliminary Blood No Growth after 24 hours 06/17/20 14:00 Blood Culture - Final Blood Chest x-ray: report reviewed, image reviewed Assessment and Plan Assessment: The patient is a 60-year-old female initially diagnosed with a stage IIA (pT2, pN0(i+), M0) grade 2 invasive ductal carcinoma of the left breast, triple positive. She underwent mastectomy with TRAM flap followed by adjuvant chemotherapy. In 2018, she was found to have recurrent axillary and mediastinal adenopathy with lung and liver lesions - triple negative at this time. She has undergone several lines of therapy, and recently has responded well to immunotherapy but has an area in the left axillary region with recent progression. This was treated with hypofractionated radiotherapy finishing on 10/30/2019. She also was found to have 2 separate DARK ROOM ATTENDANT lesions, which were managed with SRS finishing on 11/06/2019. She recently had further progression with mediastinal/subpectoral adenopathy and recently started Trodelvy. Plan: 1. Neutropenic fever: Patient appears to be improving and has been afebrile, still neutropenic based on CBC. 2. Brain metastases: The patient has previously had radiosurgery for a couple of small brain metastasis, and her most recent MRI from May 22 revealed a possible new lesion only measuring 3 mm. I discussed with the patient that I felt it would be reasonable for her to undergo repeat short interval MRI and r eturn to my clinic in one month. If this lesion increases, we would consider radiosurgery at that time. We will coordinate her outpatient follow-up. 3. Triple negative breast cancer: Recent progression, just switched therapy with Dr. Croft at [facility]. Time with Patient: Greater than 30
[2020-06-19 11:16] LABS: Platelet Count 93 k/uL (150-450)
[2020-06-19] MEDS: CHOLESTYRAMINE (WITH SUGAR) 4 GM PACKET PO SCH ×3 (11:47→18:39)
[2020-06-19] MEDS ORDERED: Potassium Replacement Protocol 1 EACH MISC MISCELLANE PRN (13:46)
--- NOTE | 2020-06-19 13:47 | P.PN ---
Subjective This is a pleasant 60 years old female was recently diagnosed with right breast cancer undergoing chemotherapy presents with decreased oral intake and diarrhea and hyponatremia. She is a patient of Dr. Bland and she follow up with [facility] with Dr. bessie cox for her cancer treatment. She's been getting chemotherapy for her right breast cancer with metastasis to the brain and the left chest wall since 2018, her last chemotherapy was last about 5 days ago. Also she is status post radiotherapy with Dr. Sue last summer. Presents because of continuous diarrhea for the last 5-6 days, her diarrhea is watery and runny every half hour to 1 hour as per patient with no blood. No abdominal pain. No nausea vomiting but she has decreased oral intake and decreased appetite, she felt more weak today, dehydrated and delirious. She states that usually have both systolic blood pressure is 120 but on admission was on 90s. She feels dizzy but did not pass out She denies smoking, alcohol or illicit drugs She is slightly tachycardic and hypotensive with blood pressure 96/64. Labs showing pancytopenia with severely low WBC at 0.6K and mild anemia at 10.4 and mild thrombocytopenia on 1:30 2K. Is 122. Rest of BMP and liver enzymes are unremarkable. EKG showing sinus tachycardia at [address]-T changes. In the emergency room she received Pepcid, Zofran and normal saline 1 L and continued at 75 mL/h 06/18/2020 Patient sitting at bedside, no distress, no significant pain, she is only concerned about her ongoing diarrhea although it's slow down a little bit however is a still very frequent. No abdominal pain. No nausea vomiting. Patient still a liquid diet Yesterday patient spiked fever at 104 and antibiotics were added by oncology team including IV vancomycin, cefepime and fluconazole with panculture ordered and infectious disease consult placed who recommended to continue with the same antibiotic of vancomycin and cefepime On reviewing the records and not from hematology/oncology team looks like patient has left breast cancer with recurrent left axillary mass and infraclavicular mass status post radiotherapy. She has extensive history as per oncology notes. Recent PET scan and MRI of the brain showing areas of metastasis and worsening mediastinal ayan disease and possible metastasis to the left flank as well. Currently patient is on filgastrim . Also she is on normal saline at 75 mL/h, blood pressure this morning is 94/66 and 108/73, she is slightly tachycardic at 109 and she has slight fever at 99.7. She still has pancytopenia barely leukopenia with WBC 0.77K, mild anemia 8.8 and thrombocytopenia 1 or 7K. Sodium improved to 129, platelets to 127 yesterday. Procalcitonin is elevated 4.49. 06/19/2020 This is a pleasant 60 years old female with extensive history of left breast cancer has been following up with oncologist since 2018 but her history even cau se before that. She has also left axillary mass and possible brain metastases and to the left upper lung as well. Presents with dehydration secondary to excessive diarrhea every 1 hour. Also patient spiked fever up to 103-104. She was started on broad-spectrum antibiotics with IV vancomycin and cefepime and fluconazole plus normal saline hydration for her hyponatremia and dehydration which is improved. Infectious disease team on the case and blood culture came back positive for coagulase-negative staph, final result is pending Also patient with pancytopenia especially leukopenia secondary to recent chemotherapy. Review of Systems CONSTITUTIONAL: No fever, no malaise, no fatigue. HEENT: No recent visual problems or hearing problems. Denied any sore throat. CARDIOVASCULAR: No orthopnea, PND, no palpitations, no syncope. PULMONARY: No shortness of breath, no cough, no hemoptysis. GASTROINTESTINAL: no nausea, no vomiting, no abdominal pain. Normoactive bowel sounds. NEUROLOGICAL: No headaches, no weakness, no numbness. HEMATOLOGICAL: Denies any bleeding or petechiae. Active Medications Generic Name Dose Route Start Last Admin Trade Name Omeroq PRN Reason Stop Dose Admin Cholestyramine Resin 4 gm 06/18/20 15:00 06/19/20 11:47 Cholestyramine (With Sugar) 4 Gm Packet PO 4 gm TID BETWEEN MEALS LIONEL Administration Duloxetine HCl 60 mg 06/17/20 21:00 06/19/20 08:13 Duloxetine Hcl 60 Mg Capsule. PO 60 mg BID LIONEL Administration Filgrastim-Sndz 480 mcg 06/17/20 18:00 06/18/20 17:44 Filgrastim-Sndz 480 Mcg/0.8 Ml Syringe SQ 480 mcg DAILY@1800 LIONEL Administration Fluconazole 100 mg 06/17/20 15:45 06/19/20 08:13 Fluconazole 100 Mg Tab PO 100 mg DAILY LIONEL Administration Heparin Sodium (Porcine) 5,000 unit 06/18/20 21:00 06/19/20 08:13 Heparin Sodium,Porcine 5,000 Unit/Ml 1 Ml Vial SQ 5,000 unit Q12HR LIONEL Administration Sodium Chloride 1,000 mls @ 75 mls/hr 06/17/20 12:00 06/19/20 06:23 Saline 0.9% IV Not Given .[id number] LIONEL Vancomycin HCl 1,250 mg/ 250 mls @ 125 mls/hr 06/17/20 18:00 06/19/20 06:27 Sodium Chloride IVPB 125 mls/hr Q12H LIONEL Administration Cefepime HCl 2 gm/ Sodium 100 mls @ 25 mls/hr 06/17/20 23:00 06/19/20 08:42 Chloride IVPB 25 mls/hr Q8H LIONEL Administration Levothyroxine Sodium 100 mcg 06/18/20 06:30 06/19/20 06:26 Levothyroxine 100 Mcg Tab PO 100 mcg DAILY@0630 LIONEL Administration Miscellaneous Information 0 each 06/19/20 17:00 Vancomycin Trough Due 1 Each Misc MISCELLANE 06/19/20 17:01 DIRECTED ONE Naloxone HCl 0.2 mg 06/17/20 11:53 Naloxone 0.4 Mg/Ml 1 Ml Vial IV Q2M PRN Opioid Reversal Ondansetron HCl 4 mg 06/17/20 11:53 Ondansetron 4 Mg/2 Ml Vial IVP Q8HR PRN Nausea And Vomiting Pantoprazole Sodium 40 mg 06/18/20 09:00 06/19/20 08:12 Pantoprazole 40 Mg/10 Ml Vial IV 40 mg DAILY LIONEL Administration Prochlorperazine Maleate 10 mg 06/17/20 12:39 Prochlorperazine 10 Mg Tab PO Q6H PRN Nausea And Vomiting Objective - Vital Signs Vital signs: Vital Signs Temp 97.5 F L 06/19/20 12:48 Pulse 98 06/19/20 12:48 Resp 16 06/19/20 12:48 BP 106/73 06/19/20 12:48 Pulse Ox 98 06/19/20 12:48 Intake & Output 06/18/20 06/19/20 06/19/20 18:59 06:59 18:59 Intake Total 350 Balance 350 Weight 68.492 kg Intake: Intake, IV Titration 350 Amount Cefepime 2 gm In Sodium 100 Chloride 0.9% 100 ml @ 25 mls/hr IVPB Q8H [facility] Rx#: [id number] Vancomycin 1,250 mg In 250 Sodium Chloride 0.9% 250 ml @ 125 mls/hr IVPB Q12H [facility] Rx#:[id number] Other: Voiding Method Toilet # Voids 3 # Bowel Movements 1 1 - Exam GENERAL: The patient is alert and oriented x3, not in any acute distress. Well developed, well nourished. HEENT: Pupils are round and equally reacting to light. EOMI. No scleral icterus. No conjunctival pallor. Normocephalic, atraumatic. No pharyngeal erythema. No thyromegaly. CARDIOVASCULAR: S1 and S2 present. No murmurs, rubs, or gallops. PULMONARY: Chest is clear to auscultation, no wheezing or crackles. ABDOMEN: Soft, nontender, nondistended, normoactive bowel sounds. No palpable organomegaly. MUSCULOSKELETAL: No joint swelling or deformity. EXTREMITIES: No cyanosis, clubbing, or pedal edema. NEUROLOGICAL: Gross neurological examination did not reveal any focal deficits. SKIN: No rashes. no petechiae. - Labs CBC & Chem 7: 06/19/20 06:29 06/19/20 06:29 Labs: Abnormal Lab Results - Last 24 Hours (Table) 06/19/20 06/19/20 Range/Units 06:29 06:29 WBC 0.7 L* (3.8-10.6) k/uL RBC 3.17 L (3.80-5.40) m/uL Hgb 8.3 L D (11.4-16.0) gm/dL Hct 26.1 L (34.0-46.0) % RDW 18.2 H (11.5-15.5) % Plt Count 93 L (150-450) k/uL Sodium 132 L (137-145) mmol/L Potassium 3.1 L (3.5-5.1) mmol/L Carbon Dioxide 21 L (22-30) mmol/L Glucose 105 H (74-99) mg/dL Total Protein 5.5 L (6.3-8.2) g/dL Albumin 2.7 L (3.5-5.0) g/dL Microbiology - Last 24 Hours (Table) 06/17/20 13:55 Urine Culture - Final Urine,Voided 06/17/20 14:00 Blood Culture Gram Stain - Preliminary Blood Blood Culture - Preliminary Coagulase Negative Staph 06/17/20 15:08 Blood Culture - Preliminary Blood No Growth after 24 hours 06/17/20 14:00 Blood Culture - Final Blood Assessment and Plan Assessment: Febrile neutropenia Dehydration associated with hypovolemia Hypovolemic hyponatremia Recent history of right breast cancer as well as chemotherapy Pancytopenia and leukopenia secondary to chemotherapy Plan: This is a pleasant 60 years old female who presents with signs and symptoms of gastroenteritis and dehydration, hyponatremia and in view of metastatic right breast cancer history. We will Monitor electrolytes included sodium. Monitor blood pressure. Consult and follow-up recommendation by oncology service. Follow-up recommendation of infectious disease and antibiotics recommendation, Follow-up pending culture and blood culture. Advance diet as tolerated, however keep the patient currently on liquid diet Labs and medication were reviewed.. Continue same treatment. Continue with symptomatic treatment. Resume home medication. Monitor lytes and vitals. DVT and GI prophylaxis. Further recommendations depends on the clinical course of the patient DVT prophylaxis: Subcutaneous heparin GI Prophylaxis: Ppi Prognosis is guarded
--- NOTE | 2020-06-19 14:21 | P.PN ---
Subjective Progress Note Date: 06/18/20 Principal diagnosis: Febrile Neutropenia Persistent diarrhea, fevers are improving. C diff Negative, other stool studies pending. WBC remains without improvement. Objective - Vital Signs Vital signs: Vital Signs Temp 97.5 F L 06/19/20 12:48 Pulse 98 06/19/20 12:48 Resp 16 06/19/20 12:48 BP 106/73 06/19/20 12:48 Pulse Ox 98 06/19/20 12:48 Intake & Output 06/18/20 06/19/20 06/19/20 18:59 06:59 18:59 Intake Total 350 Balance 350 Weight 68.492 kg Intake: Intake, IV Titration 350 Amount Cefepime 2 gm In Sodium 100 Chloride 0.9% 100 ml @ 25 mls/hr IVPB Q8H [facility] Rx#: [id number] Vancomycin 1,250 mg In 250 Sodium Chloride 0.9% 250 ml @ 125 mls/hr IVPB Q12H [facility] Rx#:[id number] Other: Voiding Method Toilet # Voids 3 # Bowel Movements 1 1 - Exam - Constitutional General appearance: cooperative, no acute distress - EENT Eyes: EOMI ENT: NA/AT, normal oropharynx - Neck Neck: normal ROM - Respiratory Respiratory: bilateral: diminished - Cardiovascular Rhythm: regular Heart sounds: normal: S1, S2 foot Peripheral Edema: left: 2+ (Left Arm Lymphedema) - Gastrointestinal General gastrointestinal: hyperactive bowel sounds, soft, tenderness - Integumentary Integumentary: pale - Neurologic Neurologic: CNII-XII intact - Musculoskeletal Musculoskeletal: generalized weakness - Psychiatric Psychiatric: A&O x's 3, appropriate affect, intact judgment & insight - Labs CBC & Chem 7: 06/19/20 06:29 06/19/20 06:29 Labs: Abnormal Lab Results - Last 24 Hours (Table) 06/19/20 06/19/20 Range/Units 06:29 06:29 WBC 0.7 L* (3.8-10.6) k/uL RBC 3.17 L (3.80-5.40) m/uL Hgb 8.3 L D (11.4-16.0) gm/dL Hct 26.1 L (34.0-46.0) % RDW 18.2 H (11.5-15.5) % Plt Count 93 L (150-450) k/uL Sodium 132 L (137-145) mmol/L Potassium 3.1 L (3.5-5.1) mmol/L Carbon Dioxide 21 L (22-30) mmol/L Glucose 105 H (74-99) mg/dL Total Protein 5.5 L (6.3-8.2) g/dL Albumin 2.7 L (3.5-5.0) g/dL Microbiology - Last 24 Hours (Table) 06/17/20 13:55 Urine Culture - Final Urine,Voided 06/17/20 14:00 Blood Culture Gram Stain - Preliminary Blood Blood Culture - Preliminary Coagulase Negative Staph 06/17/20 15:08 Blood Culture - Preliminary Blood No Growth after 24 hours 06/17/20 14:00 Blood Culture - Final Blood Assessment and Plan Plan: Assessment and Recommendations: Persistent Diarrhea: - NPO - slow advancement - Questran - Antidiarrheals Metastatic Breast Cancer: - Most recent Triple Negative - Recent progression on PET and MRI brain in May - Status POst first treatment with Trodelvy on 06/13/20 - No documented growth factor, she follows Dr. Aguilar at [facility] - Progression brain? Dr. Sue consulted Neutropenic Fever: - Huizar Cultures - Broad antibiotics - ID to follow Daily CBC, CMP and mag COntinue Zarxio Continue IV FLuids and Anntibiotics Add Questran Obtain further studies of stool Increase activity PT/OT NPO for component neutropenic colitis. Physician Attest: I have completed the full history and physical and agree with above dictation, dictated as a scribe.
[2020-06-19] MEDS: POTASSIUM CHLORIDE 20 MEQ in WATER FOR INJECTION 1 100ML.BAG IVPB SCH ×2 (16:50→19:07)
[2020-06-19] MEDS ORDERED: VANCOMYCIN TROUGH DUE 1 EACH MISC MISCELLANE ONE (17:00)
[2020-06-19] MEDS: FILGRASTIM-SNDZ 480 MCG/0.8 ML SYRINGE SQ SCH (18:39)
[2020-06-19] MEDS ORDERED: LOPERAMIDE 2 MG CAP PO PRN (18:46)
--- NOTE | 2020-06-19 21:41 | P.PN ---
Subjective Progress Note Date: 06/19/20 Principal diagnosis: Febrile Neutropenia Patient is refusing to work with PT/OT at this time, states she can get out of bed and walk although since admission has remained in bed with exception of bowel movements in which she has been incontinent. Objective - Vital Signs Vital signs: Vital Signs Temp 97.5 F L 06/19/20 12:48 Pulse 98 06/19/20 12:48 Resp 16 06/19/20 12:48 BP 106/73 06/19/20 12:48 Pulse Ox 98 06/19/20 12:48 Intake & Output 06/18/20 06/19/20 06/19/20 18:59 06:59 18:59 Intake Total 350 Balance 350 Weight 68.492 kg Intake: Intake, IV Titration 350 Amount Cefepime 2 gm In Sodium 100 Chloride 0.9% 100 ml @ 25 mls/hr IVPB Q8H [facility] Rx#: [id number] Vancomycin 1,250 mg In 250 Sodium Chloride 0.9% 250 ml @ 125 mls/hr IVPB Q12H [facility] Rx#:[id number] Other: Voiding Method Toilet # Voids 3 # Bowel Movements 1 1 - Exam - Constitutional General appearance: cooperative, no acute distress - EENT Eyes: EOMI ENT: NA/AT, normal oropharynx - Neck Neck: normal ROM - Respiratory Respiratory: bilateral: diminished - Cardiovascular Rhythm: regular Heart sounds: normal: S1, S2 foot Peripheral Edema: left: 2+ (Left Arm Lymphedema) - Gastrointestinal General gastrointestinal: hyperactive bowel sounds, soft, tenderness - Integumentary Integumentary: pale - Neurologic Neurologic: CNII-XII intact - Musculoskeletal Musculoskeletal: generalized weakness - Psychiatric Psychiatric: A&O x's 3, appropriate affect, intact judgment & insight - Labs CBC & Chem 7: 06/19/20 06:29 06/19/20 06:29 Labs: Abnormal Lab Results - Last 24 Hours (Table) 06/19/20 06/19/20 Range/Units 06:29 06:29 WBC 0.7 L* (3.8-10.6) k/uL RBC 3.17 L (3.80-5.40) m/uL Hgb 8.3 L D (11.4-16.0) gm/dL Hct 26.1 L (34.0-46.0) % RDW 18.2 H (11.5-15.5) % Plt Count 93 L (150-450) k/uL Sodium 132 L (137-145) mmol/L Potassium 3.1 L (3.5-5.1) mmol/L Carbon Dioxide 21 L (22-30) mmol/L Glucose 105 H (74-99) mg/dL Total Protein 5.5 L (6.3-8.2) g/dL Albumin 2.7 L (3.5-5.0) g/dL Microbiology - Last 24 Hours (Table) 06/17/20 13:55 Urine Culture - Final Urine,Voided 06/17/20 14:00 Blood Culture Gram Stain - Preliminary Blood Blood Culture - Preliminary Coagulase Negative Staph 06/17/20 15:08 Blood Culture - Preliminary Blood No Growth after 24 hours 06/17/20 14:00 Blood Culture - Final Blood Assessment and Plan Plan: Assessment and Recommendations: Persistent Diarrhea: - NPO - slow advancement - Questran - Antidiarrheals Metastatic Breast Cancer: - Most recent Triple Negative - Recent progression on PET and MRI brain in May - Status POst first treatment with Trodelvy on 06/13/20 - No documented growth factor, she follows Dr. Aguilar at [facility] - Progression brain? Dr. Sue consulted Neutropenic Fever: - Huizar Cultures - Broad antibiotics - ID to follow - Coag neg BC, repeat Blood cultures today (?contaminant) Daily CBC, CMP and mag COntinue Zarxio Continue IV FLuids and Anntibiotics Add Questran Await further studies of stool Increase activity PT/OT Physician Attest: I have completed the full history and physical and agree with above dictation, dictated as a scribe.
--- NOTE | 2020-06-19 23:40 | PN ---
PROGRESS NOTE DATE OF SERVICE: 06/19/2020 REASON FOR FOLLOWUP: Febrile neutropenia and bacteremia. INTERVAL HISTORY: The patient is currently afebrile. Patient is breathing comfortably. Patient denies having any chest pain or shortness of breath. Occasional cough. No nausea, no vomiting. No abdominal pain. No diarrhea. PHYSICAL EXAMINATION: Blood pressure 93/54 with a pulse of 70, temperature 98.6. He is 100% on room air. General description is a middle-aged female lying in bed in no distress. Respiratory system: Unlabored breathing. Clear to auscultation anteriorly. Heart S1, S2. Regular rate and rhythm. Abdomen soft, no tenderness. LABS: Hemoglobin 8.1, white count 10.7, BUN of 7, creatinine 0.52. Blood culture with coagulase-negative Staph. Blood culture repeat has been negative so far. DIAGNOSTIC IMPRESSION AND PLAN: Patient with febrile neutropenia. Did have positive blood culture with Coagulase negative Staph. Possible contaminant rather than true bacteremia. Repeat culture has been negative. Patient is currently on cefepime and Vanco that will continue while monitoring clinical course closely. Continue supportive care. MMODL / IJN: [id number] /
[2020-06-20] MEDS: CEFEPIME 2 GM in SODIUM CHLORIDE 0.9% 100 ML IVPB SCH ×4 (00:35→22:46)
[2020-06-20] MEDS: VANCOMYCIN 1,250 MG in SODIUM CHLORIDE 0.9% 250 ML IVPB SCH ×2 (05:07→18:44)
[2020-06-20] MEDS: LEVOTHYROXINE 100 MCG TAB PO SCH (05:07)
[2020-06-20] MEDS: SODIUM CHLORIDE 0.9% 1,000 ML IV SCH ×2 (05:08→15:15)
[2020-06-20 07:23] LABS: ALT 21 U/L (4-34); AST 14 U/L (14-36); African American GFR (CKD) >90 (>60 ml/min/1.73 sqM); Albumin 2.6 g/dL (3.5-5.0); Alkaline Phosphatase 84 U/L (38-126); Anion Gap 8 mmol/L; Blood Urea Nitrogen 4 mg/dL (7-17); Calcium 9.6 mg/dL (8.4-10.2); Carbon Dioxide 20 mmol/L (22-30); Chloride 105 mmol/L (98-107); Globulin 2.7 g/dL; Glucose 123 mg/dL (74-99); Magnesium 1.9 mg/dL (1.6-2.3); Non-African American GFR(CKD) >90 (>60 ml/min/1.73 sqM); Potassium 3.2 mmol/L (3.5-5.1); Sodium 133 mmol/L (137-145); Total Bilirubin 0.4 mg/dL (0.2-1.3); Total Protein 5.3 g/dL (6.3-8.2)
[2020-06-20] MEDS: DULoxetine HCL 60 MG CAPSULE.DR PO SCH ×2 (08:55→20:26)
[2020-06-20] MEDS: PANTOPRAZOLE 40 MG/10 ML VIAL IV SCH (08:55)
[2020-06-20] MEDS: HEPARIN SODIUM,PORCINE 5,000 UNIT/ML 1 ML VIAL SQ SCH ×2 (08:55→20:26)
[2020-06-20] MEDS: FLUCONAZOLE 100 MG TAB PO SCH (08:56)
[2020-06-20] MEDS: POTASSIUM CHLORIDE 20 MEQ in SODIUM CHLORIDE 0.9% 100 ML IVPB SCH ×2 (09:03→12:48)
[2020-06-20 09:46] LABS: % Iron Saturation 12.9 (12.00-45.00)
[2020-06-20 10:22] LABS: Folate, Serum 6.4 ng/mL
[2020-06-20 10:36] LABS: Ferritin 420.8 ng/mL (10.0-291.0)
[2020-06-20] MEDS: CHOLESTYRAMINE (WITH SUGAR) 4 GM PACKET PO SCH ×3 (10:43→18:46)
[2020-06-20 11:17] LABS: HCT 25.5 % (37.2-46.3); HGB 7.9 g/dL (12.0-15.0); MCH 26.3 pg (27.0-32.0); Platelet Count 107 X 10*3/uL (140-440)
[2020-06-20 11:18] LABS: Basophils # (M) 0.01 X 10*3/uL (0.00-0.10); Eosinophils # (M) 0.07 X 10*3/uL (0.04-0.35); Metamyelocytes % 1 % (0-0); Monocytes # (M) 0.16 X 10*3/uL (0.20-1.00); Neutrophils # (M) 0.65 X 10*3/uL (2.00-8.90); Neutrophils % (M) 50 %; Toxic Granulation 2+
[2020-06-20 12:41] LABS: Immunoglobulin M 94.3 mg/dL (40.0-280.0)
--- NOTE | 2020-06-20 12:46 | P.PN ---
Subjective Progress Note Date: 06/20/20 Principal diagnosis: Febrile Neutropenia WBC is starting to improve. Objective - Vital Signs Vital signs: Vital Signs Temp 98.0 F 06/20/20 12:28 Pulse 89 06/20/20 12:28 Resp 15 06/20/20 12:28 BP 97/66 06/20/20 12:28 Pulse Ox 93 L 06/20/20 12:28 Intake & Output 06/19/20 06/20/20 06/20/20 18:59 06:59 18:59 Intake Total 1050 900 Output Total 200 Balance 1050 700 Intake: Intake, IV Titration 1050 900 Amount Cefepime 2 gm In Sodium 200 Chloride 0.9% 100 ml @ 25 mls/hr IVPB Q8H [facility] Rx#: [id number] Cefepime 2 gm In Sodium 50 Chloride 0.9% 50 ml @ 12. 5 mls/hr IVPB Q8H [facility] Rx# :[id number] Potassium Chloride 20 meq 100 100 In Water For Injection 1 100ml.bag @ 50 mls/hr IVPB Q2H [facility] Rx#: [id number] Sodium Chloride 0.9% 1, 900 350 000 ml @ 75 mls/hr IV . [id number] [facility] Rx#:[id number] Vancomycin 1,250 mg In 250 Sodium Chloride 0.9% 250 ml @ 125 mls/hr IVPB Q12H [facility] Rx#:[id number] Output: Stool 200 Other: # Voids 5 2 # Bowel Movements 5 1 - Exam - Constitutional General appearance: cooperative, no acute distress - EENT Eyes: EOMI ENT: NA/AT, normal oropharynx - Neck Neck: normal ROM - Respiratory Respiratory: bilateral: diminished - Cardiovascular Rhythm: regular Heart sounds: normal: S1, S2 foot Peripheral Edema: left: 2+ (Left Arm Lymphedema) - Gastrointestinal General gastrointestinal: hyperactive bowel sounds, soft, tenderness - Integumentary Integumentary: pale - Neurologic Neurologic: CNII-XII intact - Musculoskeletal Musculoskeletal: generalized weakness - Psychiatric Psychiatric: A&O x's 3, appropriate affect, intact judgment & insight - Labs CBC & Chem 7: 06/20/20 06:42 06/20/20 06:42 Labs: Abnormal Lab Results - Last 24 Hours (Table) 06/19/20 06/19/20 06/20/20 Range/Units 17:45 17:45 06:42 WBC (4.50-10.00) X 10*3/uL RBC (4.10-5.20) X 10*6/uL Hgb (12.0-15.0) g/dL Hct (37.2-46.3) % MCH (27.0-32.0) pg MCHC (32.0-37.0) g/dL RDW (11.5-14.5) % Plt Count (140-440) X 10*3/uL Plt Count Comment Metamyelocytes % (0-0) % Neutrophils # (Manual) (2.00-8.90) X 10*3/uL Lymphocytes # (Manual) (0.90-5.00) X 10*3/uL Monocytes # (Manual) (0.20-1.00) X 10*3/uL Sodium 133 L (137-145) mmol/L Potassium 3.2 L (3.5-5.1) mmol/L Carbon Dioxide 20 L (22-30) mmol/L BUN 4 L (7-17) mg/dL Creatinine 0.50 L (0.52-1.04) mg/dL Glucose 123 H (74-99) mg/dL Iron 28 L (50-170) ug/dL TIBC 217 L (228-460) ug/dL Ferritin 420.8 H (10.0-291.0) ng/mL Lactate Dehydrogenase 97 L (120-246) U/L Total Protein 5.3 L (6.3-8.2) g/dL Albumin 2.6 L (3.5-5.0) g/dL Vitamin B12 1250.0 H (200.0-944.0) pg/mL TSH 14.010 H (0.350-5.500) uIU/mL IgG 681.0 L (700.0-1600.0) mg/dL 06/20/20 Range/Units 06:42 WBC 1.30 L* (4.50-10.00) X 10*3/uL RBC 3.00 L (4.10-5.20) X 10*6/uL Hgb 7.9 L (12.0-15.0) g/dL Hct 25.5 L (37.2-46.3) % MCH 26.3 L (27.0-32.0) pg MCHC 31.0 L (32.0-37.0) g/dL RDW 18.0 H (11.5-14.5) % Plt Count 107 L (140-440) X 10*3/uL Plt Count Comment DECREASED A Metamyelocytes % 1 H (0-0) % Neutrophils # (Manual) 0.65 L (2.00-8.90) X 10*3/uL Lymphocytes # (Manual) 0.40 L (0.90-5.00) X 10*3/uL Monocytes # (Manual) 0.16 L (0.20-1.00) X 10*3/uL Sodium (137-145) mmol/L Potassium (3.5-5.1) mmol/L Carbon Dioxide (22-30) mmol/L BUN (7-17) mg/dL Creatinine (0.52-1.04) mg/dL Glucose (74-99) mg/dL Iron (50-170) ug/dL TIBC (228-460) ug/dL Ferritin (10.0-291.0) ng/mL Lactate Dehydrogenase (120-246) U/L Total Protein (6.3-8.2) g/dL Albumin (3.5-5.0) g/dL Vitamin B12 (200.0-944.0) pg/mL TSH (0.350-5.500) uIU/mL IgG (700.0-1600.0) mg/dL Microbiology - Last 24 Hours (Table) 06/17/20 15:08 Blood Culture - Preliminary Blood No Growth after 48 hours 06/17/20 14:45 Stool Culture - Preliminary Stool Assessment and Plan Plan: Assessment and Recommendations: Persistent Diarrhea: - NPO - slow advancement - Questran - Antidiarrheals Metastatic Breast Cancer: - Most recent Triple Negative - Recent progression on PET and MRI brain in May - Status POst first treatment with Trodelvy on 06/13/20 - No documented growth factor, [facility] follows [facility]gression brain? Dr. Sue consulted Neutropenic Fever: - Huizar Cultures - Broad antibiotics - ID to follow - Coag neg BC, repeat Blood cultures today (?contaminant) Daily CBC, CMP and mag COntinue Zarxio Continue IV FLuids and Anntibiotics Add Questran Await further studies of stool Increase activity PT/OT Physician Attest: I have completed the full history and physical and agree with above dictation, dictated as a scribe.
--- NOTE | 2020-06-20 14:35 | PN ---
PROGRESS NOTE DATE OF SERVICE: 06/20/2020 REASON FOR FOLLOWUP: 1. Febrile neutropenia. 2. Bacteremia. INTERVAL HISTORY: The patient is currently afebrile. No fever over the last 48 hours. The patient is feeling slightly better, breathing comfortably. Denies having any chest pain. No shortness of breath. Occasional cough. No abdominal pain. Diarrhea has slowed down. PHYSICAL EXAMINATION: Blood pressure is 97/66, pulse of 89, temperature 98. She is 93% on room air. General description is a middle-aged female up in the bed in no distress. RESPIRATORY SYSTEM: Unlabored breathing, decreased intensity of breath sounds. No wheeze. HEART: S1, S2. Regular rate and rhythm. ABDOMEN: Soft, no tenderness. LABS: Hemoglobin is 7.9, white count 1.30. Creatinine 0.50. Blood culture repeat has been negative. DIAGNOSTIC IMPRESSION AND PLAN: Patient with febrile neutropenia with a positive blood culture with Coagulase negative staph, only one blood culture, possible contaminant. However, in view of the patient's Mediport will recommend a short course of IV vancomycin on discharge. Continue with supportive care. MMODL / IJN: [id number] /
[2020-06-20] MEDS: FILGRASTIM-SNDZ 480 MCG/0.8 ML SYRINGE SQ SCH (18:46)
--- NOTE | 2020-06-20 23:38 | P.PN ---
Progress Note - Text Progress Note Date: 06/20/20 Presenting complaint: Diarrhea tired History of presenting complaint This is a pleasant 60 years old female was recently diagnosed with right breast cancer undergoing chemotherapy presents with decreased oral intake and diarrhea and hyponatremia. She is a patient of Dr. Bland and she follow up with [facility] with Dr. bessie cox for her cancer treatment. She's been getting chemotherapy for her right breast cancer with metastasis to the brain and the left chest wall since 2017, her last chemotherapy was last about 5 days ago. Also she is status post radiotherapy with Dr. Sue last summer. Presents because of continuous diarrhea for the last 5-6 days, her diarrhea is watery and runny every half hour to 1 hour as per patient with no blood. No abdominal pain. No nausea vomiting but she has decreased oral intake and decreased appetite, she felt more weak today, dehydrated and delirious. She states that usually have both systolic blood pressure is 120 but on admission was on 90s. She feels dizzy but did not pass out Admitted with febrile neutropenia, dehydration, low sodium, pancytopenia. Started on IV fluids. IV cefepime. Questran for diarrhea. IV vancomycin. Saline. Today-feeling better. Been on clear liquids. Has not had diarrhea since . No abdominal pain. Requesting diet to be advanced. Afebrile Review of systems: Was done for constitutional, cardiovascular, GI, pulmonary. relevant finding as above Active Medications Cholestyramine Resin (Cholestyramine (With Sugar) 4 Gm Packet) 4 gm PO TID BETWEEN MEALS [facility] Last Admin: 06/20/20 18:46 Dose: 4 gm Documented by: Duloxetine HCl (Duloxetine Hcl 60 Mg Bon.) 60 mg PO BID [facility] Last Admin: 06/20/20 20:26 Dose: 60 mg Documented by: Filgrastim-Sndz (Filgrastim-Sndz 480 Mcg/0.8 Ml Syringe) 480 mcg SQ DAILY@1800 [facility] Last Admin: 06/20/20 18:46 Dose: 480 mcg Documented by: Fluconazole (Fluconazole 100 Mg Tab) 100 mg PO DAILY [facility] Last Admin: 06/20/20 08:56 Dose: 100 mg Documented by: Heparin Sodium (Porcine) (Heparin Sodium,Porcine 5,000 Unit/Ml 1 Ml Vial) 5,000 unit SQ Q12HR [facility] Last Admin: 06/20/20 20:26 Dose: 5,000 unit Documented by: Sodium Chloride (Saline 0.9%) 1,000 mls @ 75 mls/hr IV .[id number] [facility] Last Admin: 06/20/20 15:15 Dose: 75 mls/hr Documented by: Vancomycin HCl 1,250 mg/ (Sodium Chloride) 250 mls @ 125 mls/hr IVPB Q12H [facility] Last Admin: 06/20/20 18:44 Dose: 125 mls/hr Documented by: Cefepime HCl 2 gm/ Sodium (Chloride) 100 mls @ 25 mls/hr IVPB Q8H [facility] Last Admin: 06/20/20 22:46 Dose: 25 mls/hr Documented by: Levothyroxine Sodium (Levothyroxine 100 Mcg Tab) 100 mcg PO DAILY@0630 [facility] Last Admin: 06/20/20 05:07 Dose: 100 mcg Documented by: Loperamide HCl (Loperamide 2 Mg Cap) 2 mg PO QID PRN PRN Reason: Diarrhea Miscellaneous Information (Potassium Replacement Protocol 1 Each Misc) 1 each MISCELLANE DAILY PRN; Protocol PRN Reason: Per Protocol Naloxone HCl (Naloxone 0.4 Mg/Ml 1 Ml Vial) 0.2 mg IV Q2M PRN PRN Reason: Opioid Reversal Ondansetron HCl (Ondansetron 4 Mg/2 Ml Vial) 4 mg IVP Q8HR PRN PRN Reason: Nausea And Vomiting Pantoprazole Sodium (Pantoprazole 40 Mg/10 Ml Vial) 40 mg IV DAILY [facility] Last Admin: 06/20/20 08:55 Dose: 40 mg Documented by: Prochlorperazine Maleate (Prochlorperazine 10 Mg Tab) 10 mg PO Q6H PRN PRN Reason: Nausea And Vomiting On examination: VITAL SIGNS: 98, 89, 15, 97/66, 93% on room air GENERAL APPEARANCE: Laying in bed, awake. HEENT: Normal external appearance of nose and ear. Oral cavity normal EYES: Pupils equal. Conjunctiva normal. NECK: JVD not raised. Mass not palpable. RESPIRATORY: Respiratory effort normal. Lungs clear to auscultation. CARDIOVASCULAR: First and second sounds normal. No edema. ABDOMEN: Soft. Liver and spleen not palpable. No tenderness. No mass palpable. PSYCHIATRY: Alert and oriented x3. Mood and affect normal. INVESTIGATIONS, reviewed in the clinical context: WBC 1.3 hemoglobin 7.9 platelets 107 sodium 133 potassium 3.2 creatinine 0.5 Albumin 2.6 vitamin B12 1250 TSH 14 IgG 6081, IgA 162, IgM 94.3 C. diff negative Abdominal x-ray-no evidence of bowel obstruction Assessment and plan: -Febrile neutropenia with 1 positive blood culture with coagulase-negative Staphylococcus possibly contaminant but cannot rule out infection because a MediPort hence a short course of IV vancomycin as per infectious disease -Metastatic breast cancer, most recent triple negative. Recent progression on PETand MRA brain in May of this year. On chemotherapy. -Pancytopenia from chemotherapy, on Filgastrin -Anxiety depression otherwise specified. Continue Cymbalta and-hypothyroid on Synthroid -Peripheral neuropathy likely from chemotherapy on Neurontin -GERD on Prilosec -Chronic urinary incontinence patient's had bladder surgery continue on Detrol LA Patient had to be increased to full liquids. Follow electrolytes. Care was discussed with the patient. Encouraged to sit up in a chair.
[2020-06-21] MEDS: VANCOMYCIN 1,250 MG in SODIUM CHLORIDE 0.9% 250 ML IVPB SCH ×2 (05:52→17:08)
[2020-06-21] MEDS: LEVOTHYROXINE 100 MCG TAB PO SCH (05:52)
[2020-06-21] MEDS: DULoxetine HCL 60 MG CAPSULE.DR PO SCH ×2 (08:16→20:07)
[2020-06-21] MEDS: HEPARIN SODIUM,PORCINE 5,000 UNIT/ML 1 ML VIAL SQ SCH ×2 (08:16→20:07)
[2020-06-21] MEDS: PANTOPRAZOLE 40 MG/10 ML VIAL IV SCH (08:16)
[2020-06-21] MEDS: CHOLESTYRAMINE (WITH SUGAR) 4 GM PACKET PO SCH ×3 (08:16→17:08)
[2020-06-21] MEDS: FLUCONAZOLE 100 MG TAB PO SCH (08:17)
[2020-06-21] MEDS: CEFEPIME 2 GM in SODIUM CHLORIDE 0.9% 100 ML IVPB SCH ×3 (08:17→22:24)
[2020-06-21] MEDS: SODIUM CHLORIDE 0.9% 1,000 ML IV SCH ×2 (10:26→12:07)
[2020-06-21 13:11] LABS: Anisocytosis Slight; Basophils % (A) 0 %; Eosinophils # (A) 0.1 k/uL (0-0.7); Eosinophils % (A) 2 %; HCT 27.6 % (34.0-46.0); HGB 8.6 gm/dL (11.4-16.0); Hypochromasia Moderate; Lymphocytes # (A) 0.5 k/uL (1.0-4.8); Lymphocytes % (A) 10 %; MCH 26.4 pg (25.0-35.0); MCHC 31.2 g/dL (31.0-37.0); MCV 84.8 fL (80.0-100.0); Mean Platelet Volume 7.9; Monocytes # (A) 0.3 k/uL (0-1.0); Monocytes % (A) 6 %; Neutrophils # (A) 3.7 k/uL (1.3-7.7); Neutrophils % (A) 80 %; Platelet Count 116 k/uL (150-450); RBC 3.26 m/uL (3.80-5.40); RDW 18.7 % (11.5-15.5); WBC 4.6 k/uL (3.8-10.6)
[2020-06-21] MEDS: PSYLLIUM HUSK 100% 6 GM PACKET PO SCH ×2 (13:38→20:07)
[2020-06-21] MEDS: LOPERAMIDE 2 MG CAP PO SCH ×3 (13:38→22:24)
[2020-06-21] MEDS: FILGRASTIM-SNDZ 480 MCG/0.8 ML SYRINGE SQ SCH (17:08)
--- NOTE | 2020-06-21 22:43 | P.PN ---
Progress Note - Text Progress Note Date: 06/21/20 Presenting complaint: Diarrhea tired History of presenting complaint This is a pleasant 60 years old female was recently diagnosed with right breast cancer undergoing chemotherapy presents with decreased oral intake and diarrhea and hyponatremia. She is a patient of Dr. Bland and she follow up with [facility] with Dr. bessie cox for her cancer treatment. She's been getting chemotherapy for her right breast cancer with metastasis to the brain and the left chest wall since 2018, her last chemotherapy was last about 5 days ago. Also she is status post radiotherapy with Dr. Sue last summer. Presents because of continuous diarrhea for the last 5-6 days, her diarrhea is watery and runny every half hour to 1 hour as per patient with no blood. No abdominal pain. No nausea vomiting but she has decreased oral intake and decreased appetite, she felt more weak today, dehydrated and delirious. She states that usually have both systolic blood pressure is 120 but on admission was on 90s. She feels dizzy but did not pass out Admitted with febrile neutropenia, dehydration, low sodium, pancytopenia. Started on IV fluids. IV cefepime. Questran for diarrhea. IV vancomycin. Saline. Today-tolerating diet better. Having some more diarrhea. No abdominal pain. Review of systems: Was done for constitutional, cardiovascular, GI, pulmonary. relevant finding as above Active Medications Cholestyramine Resin (Cholestyramine (With Sugar) 4 Gm Packet) 4 gm PO TID BETWEEN MEALS [facility] Last Admin: 06/21/20 17:08 Dose: 4 gm Documented by: Duloxetine HCl (Duloxetine Hcl 60 Mg Capsule.) 60 mg PO BID [facility] Last Admin: 06/21/20 20:07 Dose: 60 mg Documented by: Filgrastim-Sndz (Filgrastim-Sndz 480 Mcg/0.8 Ml Syringe) 480 mcg SQ DAILY@1800 [facility] Last Admin: 06/21/20 17:08 Dose: 480 mcg Documented by: Fluconazole (Fluconazole 100 Mg Tab) 100 mg PO DAILY [facility] Last Admin: 06/21/20 08:17 Dose: 100 mg Documented by: Heparin Sodium (Porcine) (Heparin Sodium,Porcine 5,000 Unit/Ml 1 Ml Vial) 5,000 unit SQ Q12HR [facility] Last Admin: 06/21/20 20:07 Dose: 5,000 unit Documented by: Sodium Chloride (Saline 0.9%) 1,000 mls @ 75 mls/hr IV .[id number] [facility] Last Admin: 06/21/20 12:07 Dose: 75 mls/hr Documented by: Vancomycin HCl 1,250 mg/ (Sodium Chloride) 250 mls @ 125 mls/hr IVPB Q12H [facility] Last Admin: 06/21/20 17:08 Dose: 125 mls/hr Documented by: Cefepime HCl 2 gm/ Sodium (Chloride) 100 mls @ 25 mls/hr IVPB Q8H [facility] Last Admin: 06/21/20 22:24 Dose: 25 mls/hr Documented by: Levothyroxine Sodium (Levothyroxine 100 Mcg Tab) 100 mcg PO DAILY@0630 [facility] Last Admin: 06/21/20 05:52 Dose: 100 mcg Documented by: Loperamide HCl (Loperamide 2 Mg Cap) 2 mg PO QID [facility] Last Admin: 06/21/20 22:24 Dose: 2 mg Documented by: Miscellaneous Information (Potassium Replacement Protocol 1 Each Misc) 1 each MISCELLANE DAILY PRN; Protocol PRN Reason: Per Protocol Miscellaneous Information (Vancomycin Trough Due 1 Each Misc) 0 each MISCELLANE DIRECTED ONE Stop: 06/22/20 05:01 Naloxone HCl (Naloxone 0.4 Mg/Ml 1 Ml Vial) 0.2 mg IV Q2M PRN PRN Reason: Opioid Reversal Ondansetron HCl (Ondansetron 4 Mg/2 Ml Vial) 4 mg IVP Q8HR PRN PRN Reason: Nausea And Vomiting Prochlorperazine Maleate (Prochlorperazine 10 Mg Tab) 10 mg PO Q6H PRN PRN Reason: Nausea And Vomiting Psyllium Hydrophilic Mucilloid (Psyllium Husk 100% 6 Gm Packet) 6 gm PO BID [facility] Last Admin: 06/21/20 20:07 Dose: 6 gm Documented by: On examination: VITAL SIGNS: 37.8, 89, 14, 113/76, 98% room air GENERAL APPEARANCE: Laying in bed, awake. HEENT: Normal external appearance of nose and ear. Oral cavity normal EYES: Pupils equal. Conjunctiva normal. NECK: JVD not raised. Mass not palpable. RESPIRATORY: Respiratory effort normal. Lungs clear to auscultation. CARDIOVASCULAR: First and second sounds normal. No edema. ABDOMEN: Soft. Liver and spleen not palpable. No tenderness. No mass palpable. PSYCHIATRY: Alert and oriented x3. Mood and affect normal. INVESTIGATIONS, reviewed in the clinical context: June 21: WBC 4.6 hemoglobin 8.6 platelets 116 WBC 1.3 hemoglobin 7.9 platelets 107 sodium 133 potassium 3.2 creatinine 0.5 Albumin 2.6 vitamin B12 1250 TSH 14 IgG 6081, IgA 162, IgM 94.3 C. diff negative Abdominal x-ray-no evidence of bowel obstruction Assessment and plan: -Febrile neutropenia with 1 positive blood culture with coagulase-negative Staphylococcus possibly contaminant but cannot rule out infection because a MediPort hence a short course of IV vancomycin as per infectious disease -Metastatic breast cancer, most recent triple negative. Recent progression on PETand MRA brain in May of this year. On chemotherapy. -Pancytopenia from chemotherapy, on Filgastrin -Anxiety depression otherwise specified. Continue Cymbalta and-hypothyroid on Synthroid -Peripheral neuropathy likely from chemotherapy on Neurontin -GERD on Prilosec -Chronic urinary incontinence patient's had bladder surgery continue on Detrol LA -Acute diarrhea noninfectious. Add Metamucil. Metamucil added. Change Imodium 2 scheduled. Other medications to continue
[2020-06-22] MEDS ORDERED: VANCOMYCIN TROUGH DUE 1 EACH MISC MISCELLANE ONE (05:00)
[2020-06-22] MEDS: LEVOTHYROXINE 100 MCG TAB PO SCH (06:08)
[2020-06-22] MEDS: VANCOMYCIN 1,250 MG in SODIUM CHLORIDE 0.9% 250 ML IVPB SCH ×2 (06:08→18:18)
[2020-06-22 06:23] LABS: Anion Gap 8 mmol/L; Anisocytosis Slight; Basophils % (A) 0 %; Blood Urea Nitrogen 2 mg/dL (7-17); Calcium 9.7 mg/dL (8.4-10.2); Carbon Dioxide 20 mmol/L (22-30); Chloride 108 mmol/L (98-107); Eosinophils # (A) 0.1 k/uL (0-0.7); Eosinophils % (A) 1 %; Glucose 92 mg/dL (74-99); HCT 26.7 % (34.0-46.0); HGB 8.8 gm/dL (11.4-16.0); Lymphocytes # (A) 1.2 k/uL (1.0-4.8); Lymphocytes % (A) 16 %; MCHC 32.9 g/dL (31.0-37.0); MCV 82.3 fL (80.0-100.0); Mean Platelet Volume 8.2; Microcytosis Slight; Monocytes # (A) 0.5 k/uL (0-1.0); Monocytes % (A) 7 %; Neutrophils # (A) 5.6 k/uL (1.3-7.7); Neutrophils % (A) 74 %; Platelet Count 100 k/uL (150-450); Potassium 3.2 mmol/L (3.5-5.1); RBC 3.25 m/uL (3.80-5.40); RDW 19.2 % (11.5-15.5); Sodium 136 mmol/L (137-145)
[2020-06-22 06:45] LABS: Band Neutrophils % 17 %; Lymphocytes # (M) 1.29 k/uL (1.0-4.8); Metamyelocytes # (M) 0.08 k/uL (0); Metamyelocytes % 1 %; Monocytes # (M) 0.53 k/uL (0-1.0); Neutrophils % (M) 60 %; Nucleated Red Blood Cells 1 /100 WBC (0-0); Total Cells Counted 200; WBC 7.6 k/uL (3.8-10.6)
[2020-06-22 06:48] LABS: Polychromasia Present
[2020-06-22 06:50] LABS: Large Platelets Present
[2020-06-22] MEDS: CEFEPIME 2 GM in SODIUM CHLORIDE 0.9% 100 ML IVPB SCH ×3 (08:40→22:33)
[2020-06-22] MEDS: DULoxetine HCL 60 MG CAPSULE.DR PO SCH ×2 (08:43→20:34)
[2020-06-22] MEDS: FLUCONAZOLE 100 MG TAB PO SCH (08:44)
[2020-06-22] MEDS: LOPERAMIDE 2 MG CAP PO SCH (08:45)
[2020-06-22] MEDS: CHOLESTYRAMINE (WITH SUGAR) 4 GM PACKET PO SCH (08:45)
[2020-06-22] MEDS: HEPARIN SODIUM,PORCINE 5,000 UNIT/ML 1 ML VIAL SQ SCH ×2 (08:46→20:34)
[2020-06-22] MEDS: PSYLLIUM HUSK 100% 6 GM PACKET PO SCH ×2 (08:46→20:34)
[2020-06-22] MEDS ORDERED: POTASSIUM CHLORIDE ER 20 MEQ TAB.ER PO STA (12:09)
[2020-06-22] MEDS ORDERED: LOPERAMIDE 2 MG CAP PO PRN (12:12)
[2020-06-22 13:31] LABS: African American GFR (CKD) >90 (>60 ml/min/1.73 sqM); Non-African American GFR(CKD) >90 (>60 ml/min/1.73 sqM)
--- NOTE | 2020-06-22 13:52 | P.PN ---
Subjective Progress Note Date: 06/22/20 Patient's diarrhea is significantly improved today. She denies any significant abdominal pain. Appetite is also improved. No recurrence of fever or chills Objective - Vital Signs Vital signs: Vital Signs Temp 97.6 F 06/22/20 12:24 Pulse 81 06/22/20 12:24 Resp 18 06/22/20 12:24 BP 125/84 06/22/20 12:24 Pulse Ox 95 06/22/20 12:24 Intake & Output 06/21/20 06/22/20 06/22/20 18:59 06:59 18:59 Intake Total 4630 1750 Balance 4630 1750 Intake: Intake, IV Titration 1050 1250 Amount Cefepime 2 gm In Sodium 200 100 Chloride 0.9% 100 ml @ 25 mls/hr IVPB Q8H [facility] Rx#: [id number] Sodium Chloride 0.9% 1, 600 900 000 ml @ 75 mls/hr IV . [id number] [facility] Rx#:[id number] Vancomycin 1,250 mg In 250 250 Sodium Chloride 0.9% 250 ml @ 125 mls/hr IVPB Q12H [facility] Rx#:[id number] Oral 3580 500 Other: Voiding Method Toilet Toilet # Voids 5 3 # Bowel Movements 5 - Constitutional General appearance: Present: no acute distress - EENT Eyes: Present: EOMI ENT: Present: hearing grossly normal, normal oropharynx - Respiratory Respiratory: bilateral: CTA - Cardiovascular Rhythm: regular Heart sounds: normal: S1, S2 - Gastrointestinal General gastrointestinal: Present: normal bowel sounds, soft - Integumentary Integumentary: Present: normal - Neurologic Neurologic: Present: CNII-XII intact - Musculoskeletal Musculoskeletal: Present: generalized weakness, strength equal bilaterally - Labs CBC & Chem 7: 06/22/20 05:10 06/22/20 05:10 Labs: Abnormal Lab Results - Last 24 Hours (Table) 06/22/20 06/22/20 Range/Units 05:10 05:10 RBC 3.25 L (3.80-5.40) m/uL Hgb 8.8 L (11.4-16.0) gm/dL Hct 26.7 L (34.0-46.0) % RDW 19.2 H (11.5-15.5) % Plt Count 100 L (150-450) k/uL Metamyelocytes # (Man) 0.08 H (0) k/uL Nucleated RBCs 1 H (0-0) /100 WBC Sodium 136 L (137-145) mmol/L Potassium 3.2 L (3.5-5.1) mmol/L Chloride 108 H (98-107) mmol/L Carbon Dioxide 20 L (22-30) mmol/L BUN 2 L (7-17) mg/dL Creatinine 0.49 L (0.52-1.04) mg/dL Microbiology - Last 24 Hours (Table) 06/19/20 20:09 Blood Culture - Preliminary Blood No Growth after 48 hours 06/19/20 17:45 Blood Culture - Preliminary Blood No Growth after 48 hours 06/17/20 15:08 Blood Culture - Preliminary Blood No Growth after 96 hours 06/17/20 14:00 Blood Culture Gram Stain - Final Blood Blood Culture - Final Coagulase Negative Staph 06/17/20 14:45 Stool Culture - Final Stool Assessment and Plan (1) Neutropenic fever Narrative/Plan: no recurrence of fever. Blood cultures were initially positive for coagulase- negative staph but subsequently negative. This is more likely to be a contaminant. Neutropenia has resolved. Discontinue growth factors Current Visit: No Status: Acute Code(s): D70.9 - NEUTROPENIA, UNSPECIFIED; R50.81 - FEVER PRESENTING WITH CONDITIONS CLASSIFIED ELSEWHERE SNOMED Code(s): 791733928 (2) Breast cancer, stage 4 Narrative/Plan: patient is expected to resume treatment after discharge. She was however strongly advised to follow-up with her oncologist at the [facility] , Dr Croft, prior to her next cycle. The patient stated that she has an appointment later this week. Current Visit: Yes Status: Acute Code(s): C50.919 - MALIGNANT NEOPLASM OF UNSP SITE OF UNSPECIFIED FEMALE BREAST SNOMED Code(s): 685934224 (3) Diarrhea Narrative/Plan: This is markedly improved, as expected, with WBC recovery. Infection workup was negative. This is most likely due to neutropenic enteritis/colitis. Current Visit: Yes Status: Acute Code(s): R19.7 - DIARRHEA, UNSPECIFIED SNOMED Code(s): 23976150
[2020-06-22] MEDS: SODIUM CHLORIDE 0.9% 1,000 ML IV SCH (15:41)
[2020-06-22 20:44] VITALS: RESP 16
--- NOTE | 2020-06-22 22:07 | P.PN ---
Progress Note - Text Progress Note Date: 06/22/20 Presenting complaint: Diarrhea tired History of presenting complaint This is a pleasant 60 years old female was recently diagnosed with right breast cancer undergoing chemotherapy presents with decreased oral intake and diarrhea and hyponatremia. She is a patient of Dr. Bland and she follow up with [facility] with Dr. bessie cox for her cancer treatment. She's been getting chemotherapy for her right breast cancer with metastasis to the brain and the left chest wall since 2018, her last chemotherapy was last about 5 days ago. Also she is status post radiotherapy with Dr. Sue last summer. Presents because of continuous diarrhea for the last 5-6 days, her diarrhea is watery and runny every half hour to 1 hour as per patient with no blood. No abdominal pain. No nausea vomiting but she has decreased oral intake and decreased appetite, she felt more weak today, dehydrated and delirious. She states that usually have both systolic blood pressure is 120 but on admission was on 90s. She feels dizzy but did not pass out Admitted with febrile neutropenia, dehydration, low sodium, pancytopenia. Started on IV fluids. IV cefepime. Questran for diarrhea. IV vancomycin. Saline. Today-patient tolerated full liquid diet. No abdominal pain. No diarrhea since yesterday. White count is,. Review of systems: Was done for constitutional, cardiovascular, GI, pulmonary. relevant finding as above Active Medications Duloxetine HCl (Duloxetine Hcl 60 Mg Capsule.) 60 mg PO BID [facility] Last Admin: 06/22/20 20:34 Dose: 60 mg Documented by: Fluconazole (Fluconazole 100 Mg Tab) 100 mg PO DAILY [facility] Last Admin: 06/22/20 08:44 Dose: 100 mg Documented by: Heparin Sodium (Porcine) (Heparin Sodium,Porcine 5,000 Unit/Ml 1 Ml Vial) 5,000 unit SQ Q12HR [facility] Last Admin: 06/22/20 20:34 Dose: 5,000 unit Documented by: Sodium Chloride (Saline 0.9%) 1,000 mls @ 75 mls/hr IV .[id number] [facility] Last Admin: 06/22/20 15:41 Dose: 75 mls/hr Documented by: Vancomycin HCl 1,250 mg/ (Sodium Chloride) 250 mls @ 125 mls/hr IVPB Q12H [facility] Last Admin: 06/22/20 18:18 Dose: 125 mls/hr Documented by: Cefepime HCl 2 gm/ Sodium (Chloride) 100 mls @ 25 mls/hr IVPB Q8H [facility] Last Admin: 06/22/20 15:41 Dose: 25 mls/hr Documented by: Levothyroxine Sodium (Levothyroxine 100 Mcg Tab) 100 mcg PO DAILY@0630 [facility] Last Admin: 06/22/20 06:08 Dose: 100 mcg Documented by: Loperamide HCl (Loperamide 2 Mg Cap) 2 mg PO QID PRN PRN Reason: Diarrhea Miscellaneous Information (Potassium Replacement Protocol 1 Each Misc) 1 each MISCELLANE DAILY PRN; Protocol PRN Reason: Per Protocol Naloxone HCl (Naloxone 0.4 Mg/Ml 1 Ml Vial) 0.2 mg IV Q2M PRN PRN Reason: Opioid Reversal Ondansetron HCl (Ondansetron 4 Mg/2 Ml Vial) 4 mg IVP Q8HR PRN PRN Reason: Nausea And Vomiting Prochlorperazine Maleate (Prochlorperazine 10 Mg Tab) 10 mg PO Q6H PRN PRN Reason: Nausea And Vomiting Psyllium Hydrophilic Mucilloid (Psyllium Husk 100% 6 Gm Packet) 6 gm PO BID [facility] Last Admin: 06/22/20 20:34 Dose: 6 gm Documented by: On examination: VITAL SIGNS: 97.6, 81, 18, 125/84, 95% room air GENERAL APPEARANCE: Laying in bed, eating better HEENT: Normal external appearance of nose and ear. Oral cavity normal EYES: Pupils equal. Conjunctiva normal. NECK: JVD not raised. Mass not palpable. RESPIRATORY: Respiratory effort normal. Lungs clear to auscultation. CARDIOVASCULAR: First and second sounds normal. No edema. ABDOMEN: Soft. Liver and spleen not palpable. No tenderness. No mass palpable. PSYCHIATRY: Alert and oriented x3. Mood and affect normal. INVESTIGATIONS, reviewed in the clinical context: June 22: White count 7.6 hemoglobin 8.8 platelets 100. Potassium 3.2 June 21: WBC 4.6 hemoglobin 8.6 platelets 116 WBC 1.3 hemoglobin 7.9 platelets 107 sodium 133 potassium 3.2 creatinine 0.5 Albumin 2.6 vitamin B12 1250 TSH 14 IgG 6081, IgA 162, IgM 94.3 C. diff negative Abdominal x-ray-no evidence of bowel obstruction Assessment and plan: -Febrile neutropenia with 1 positive blood culture with coagulase-negative Staphylococcus possibly contaminant but cannot rule out infection because a MediPort hence a short course of IV vancomycin as per infectious disease -Metastatic breast cancer, most recent triple negative. Recent progression on PETand MRA brain in May of this year. On chemotherapy. -Pancytopenia from chemotherapy, on Filgastrin. Improved. Discontinue physical gastrin -Anxiety depression otherwise specified. Continue Cymbalta and-hypothyroid on Synthroid -Peripheral neuropathy likely from chemotherapy on Neurontin -GERD on Prilosec -Chronic urinary incontinence patient's had bladder surgery continue on Detrol LA -Acute diarrhea noninfectious. Add Metamucil. Improved. Change Imodium 2 when necessary. Advanced diet to soft bland. DC fill gastrin. Plan for discharge tomorrow. Discussed with patient
--- NOTE | 2020-06-22 23:24 | PN ---
PROGRESS NOTE DATE OF SERVICE: 06/22/2020 REASON FOR FOLLOWUP: Febrile neutropenia and bacteremia. INTERVAL HISTORY: The patient is currently afebrile. The patient is breathing comfortably. Patient denies having any chest pain. No shortness of breath or cough. No nausea, vomiting. No abdominal pain. No diarrhea. PHYSICAL EXAMINATION: Blood pressure 121/80 with a pulse of 90. Temperature is 97.8. She is 96% on room air. General description: The patient is middle-aged female lying in bed in no distress. Respiratory system: Unlabored breathing, clear to auscultation anteriorly. Heart S1, S2. Regular rate and rhythm. ABDOMEN: Soft, no tenderness. LABS: Hemoglobin 8.8, white count 7.6, creatinine 0.49. Blood culture has been negative. DIAGNOSTIC IMPRESSION AND PLAN: Patient admitted to the hospital with febrile neutropenia in this patient who did have a positive blood culture, Coagulase negative Staph in this regard. However, the patient does have a port and may have been the source. Recommend a week of IV vanco through the port. Continue supportive care. MMODL / IJN: [id number] /
[2020-06-23] MEDS: SODIUM CHLORIDE 0.9% 1,000 ML IV SCH (01:26)
[2020-06-23] MEDS: LEVOTHYROXINE 100 MCG TAB PO SCH (06:04)
[2020-06-23] MEDS: VANCOMYCIN 1,250 MG in SODIUM CHLORIDE 0.9% 250 ML IVPB SCH ×2 (06:04→15:53)
[2020-06-23] MEDS: CEFEPIME 2 GM in SODIUM CHLORIDE 0.9% 100 ML IVPB SCH (09:15)
[2020-06-23 09:36] LABS: African American GFR (CKD) 123.6 (60.0-200.0); Non-African American GFR(CKD) 106.7 (60.0-200.0)
[2020-06-23] MEDS: DULoxetine HCL 60 MG CAPSULE.DR PO SCH (10:58)
[2020-06-23] MEDS: FLUCONAZOLE 100 MG TAB PO SCH (10:58)
[2020-06-23] MEDS: PSYLLIUM HUSK 100% 6 GM PACKET PO SCH (10:59)
[2020-06-23] MEDS: HEPARIN SODIUM,PORCINE 5,000 UNIT/ML 1 ML VIAL SQ SCH (10:59)
[2020-06-23 13:01] VITALS: BP 108/72; PULSE 90; TEMP 98
--- NOTE | 2020-06-23 17:28 | P.PN ---
Subjective Progress Note Date: 06/23/20 Principal diagnosis: Hyponatremia, dehydration, + BC. Hx breast cancer, on Trodelvy and xeloda? In f/u today pt is feeling pretty good. She denies F, oral irritation, nausea, vomiting, stool is thicker but, not solid yet. Objective - Vital Signs Vital signs: Vital Signs Temp 97.9 F 06/23/20 04:20 Pulse 89 06/23/20 08:00 Resp 16 06/23/20 08:00 BP 112/76 06/23/20 04:20 Pulse Ox 93 L 06/23/20 04:20 Intake & Output 06/22/20 06/23/20 06/23/20 18:59 06:59 18:59 Intake Total 1100 Output Total 200 Balance 1100 -200 Intake: Intake, IV Titration 1100 Amount Cefepime 2 gm In Sodium 200 Chloride 0.9% 100 ml @ 25 mls/hr IVPB Q8H [facility] Rx#: [id number] Sodium Chloride 0.9% 1, 900 000 ml @ 75 mls/hr IV . [id number] [facility] Rx#:[id number] Output: Stool 200 Other: Voiding Method Toilet Toilet # Voids 2 - Constitutional General appearance: Present: average body habitus, cooperative, no acute distress - EENT Eyes: Present: anicteric sclerae, EOMI ENT: Present: hearing grossly normal, normal oropharynx - Respiratory Respiratory: bilateral: CTA - Cardiovascular Rhythm: regular Heart sounds: normal: S1, S2 Abnormal Heart Sounds: Absent: systolic murmur, diastolic murmur, rub, S3 Gallop, S4 Gallop, click, other - Peripheral edema leg Peripheral Edema: bilateral: None - Gastrointestinal General gastrointestinal: Present: normal bowel sounds, soft. Absent: absent bowel sounds, decreased bowel sounds, distended, hepatomegaly, hyperactive bowel sounds, organomegaly, rigid, scaphoid, splenomegaly, tenderness, umbilical hernia, ventral hernia - Integumentary Integumentary: Present: normal - Neurologic Neurologic: Present: CNII-XII intact - Musculoskeletal Musculoskeletal: Present: strength equal bilaterally - Psychiatric Psychiatric: Present: A&O x's 3, appropriate affect, intact judgment & insight - Labs CBC & Chem 7: 06/22/20 05:10 06/23/20 06:12 Labs: Abnormal Lab Results - Last 24 Hours (Table) 06/22/20 06/23/20 Range/Units 05:10 06:12 Creatinine 0.49 L 0.5 L (0.52-1.04) mg/dL Microbiology - Last 24 Hours (Table) 06/19/20 20:09 Blood Culture - Preliminary Blood No Growth after 72 hours 06/19/20 17:45 Blood Culture - Preliminary Blood No Growth after 72 hours 06/17/20 15:08 Blood Culture - Preliminary Blood No Growth after 120 hours Assessment and Plan (1) Positive blood culture Narrative/Plan: Case discussed briefly with ID. Patient is going to require 1 week of vancomycin twice a day through the port for positive blood culture. Current Visit: Yes Status: Acute Priority: High Code(s): R78.81 - BACTEREMIA SNOMED Code(s): 568416067 (2) Breast cancer, stage 4 Narrative/Plan: Patient follows at the [facility]. She states that she has had 2 cycles of trodelvy, I also see xeloda on her med list. I explained to patient that with an active infection she would not receive chemo. She is not sure if her appointment this week is for f/u or treatment. I will try to get a message out to the [facility] today/tomorrow. Will send a copy of patient's labs as well as a progress note to summarize what is currently happening. Current Visit: Yes Status: Chronic Priority: Medium Code(s): C50.919 - MALIGNANT NEOPLASM OF UNSP SITE OF UNSPECIFIED FEMALE BREAST SNOMED Code(s): 657840252 (3) Dehydration Current Visit: Yes Status: Acute Code(s): E86.0 - DEHYDRATION SNOMED Code(s): 84184258 (4) Diarrhea Narrative/Plan: Improving Current Visit: Yes Status: Acute Priority: High Code(s): R19.7 - DIARRHEA, UNSPECIFIED SNOMED Code(s): 57299459 (5) Hyponatremia Current Visit: Yes Status: Acute Code(s): E87.1 - HYPO-OSMOLALITY AND HYPONATREMIA SNOMED Code(s): 87830216
--- NOTE | 2020-06-23 18:56 | PN ---
PROGRESS NOTE DATE OF SERVICE: 06/23/2020 REASON FOR FOLLOWUP: Febrile neutropenia with positive blood culture, Coagulase negative Staph. The patient is currently afebrile. The patient is breathing comfortably. Denies having any chest pain. No shortness of breath or cough. No nausea or vomiting, no abdominal pain. No diarrhea. PHYSICAL EXAMINATION: Blood pressure 108/72 with a pulse of 90, temperature 98. She is 93% on room air. General description is a middle-aged female lying in bed in no distress. Respiratory system: Unlabored breathing, clear to auscultation anteriorly. Heart S1, S2. Regular rate and rhythm. Abdomen soft, no tenderness. LABS: Creatinine 0.5. Vancomycin trough is 17.1. Blood culture repeat has been negative. DIAGNOSTIC IMPRESSION AND PLAN: Patient with febrile neutropenia in this patient who did have a positive culture with coagulase negative staph in view of underlying MediPort and fever when she presented. Recommend a 7-day course of IV vancomycin to be done through the port. Close outpatient followup. MMODL / IJN: [id number] /
--- NOTE | 2020-06-23 23:44 | P.DS ---
Providers Date of admission: 06/17/20 11:53 Expected date of discharge: 06/23/20 Attending physician: Jose Delgadillo Consults: 06/17/20 11:54 Consult Physician Urgent Consulting Provider: Karuna Penny Consult Reason/Comments: Hyponatremia, leukopenia Do you want consulting provider notified?: Yes 06/17/20 15:51 Consult Physician Routine Consulting Provider: Dania Montalvo Consult Reason/Comments: Neutroprnic Fever Do you want consulting provider notified?: Yes 06/18/20 13:24 Consult Physician Routine Consulting Provider: Hitesh Sue Consult Reason/Comments: recent progressive brain mets?treated Do you want consulting provider notified?: Yes Primary care physician: Igor [place] Hospital Course: Presenting complaint: Diarrhea tired History of presenting complaint This is a pleasant 60 years old female was recently diagnosed with right breast cancer undergoing chemotherapy presents with decreased oral intake and diarrhea and hyponatremia. She is a patient of Dr. Bland and she follow up with [facility] with Dr. bessie cox for her cancer treatment. She's been getting chemotherapy for her right breast cancer with metastasis to the brain and the left chest wall since 2018, her last chemotherapy was last about 5 days ago. Also she is status post radiotherapy with Dr. Sue last summer. Presents because of continuous diarrhea for the last 5-6 days, her diarrhea is watery and runny every half hour to 1 hour as per patient with no blood. No abdominal pain. No nausea vomiting but she has decreased oral intake and de creased appetite, she felt more weak today, dehydrated and delirious. She states that usually have both systolic blood pressure is 120 but on admission was on 90s. She feels dizzy but did not pass out Admitted with febrile neutropenia, dehydration, low sodium, pancytopenia. Started on IV fluids. IV cefepime. Questran for diarrhea. IV vancomycin. Saline. Received Filgastrim. WBC recovered. Patient had 1 set of coagulase negative staph. Because she has a poor. Decision was made to give it at least another week of vancomycin upon discharge. This was arranged. Patient also had noninfective diarrhea on presentation. That resolved. Negative for C. diff. Diet was advanced. Today-Tolerating regular diet. Feeling much better. Back to baseline. IV vancomycin for a week at home. Care was discussed with the patient. Questions answered. Discussion and discharge planning more than 35 minutes Review of systems: Was done for constitutional, cardiovascular, GI, pulmonary. relevant finding as above Consultation: Dr. Montalvo from ID Dr. Oswald from hematology oncology Dr. Sue from radiation oncology On examination: VITAL SIGNS: 98, 90, 16, 108/72, 93% on room air GENERAL APPEARANCE: Sitting up in a chair, comfortable HEENT: Normal external appearance of nose and ear. Oral cavity normal EYES: Pupils equal. Conjunctiva normal. NECK: JVD not raised. Mass not palpable. RESPIRATORY: Respiratory effort normal. Lungs clear to auscultation. CARDIOVASCULAR: First and second sounds normal. No edema. ABDOMEN: Soft. Liver and spleen not palpable. No tenderness. No mass palpable. PSYCHIATRY: Alert and oriented x3. Mood and affect normal. INVESTIGATIONS, reviewed in the clinical context: June 22: White count 7.6 hemoglobin 8.8 platelets 100. Potassium 3.2 June 21: WBC 4.6 hemoglobin 8.6 platelets 116 WBC 1.3 hemoglobin 7.9 platelets 107 sodium 133 potassium 3.2 creatinine 0.5 Albumin 2.6 vitamin B12 1250 TSH 14 IgG 6081, IgA 162, IgM 94.3 C. diff negative Abdominal x-ray-no evidence of bowel obstruction Assessment and plan: -Febrile neutropenia with 1 positive blood culture with coagulase-negative Staphylococcus possibly contaminant but cannot rule out infection because a MediPort hence a short course of IV vancomycin as per infectious disease -Metastatic breast cancer, most recent triple negative. Recent progression on PETand MRA brain in May of this year. On chemotherapy. -Pancytopenia from chemotherapy, on Filgastrin. Improved. -Anxiety depression otherwise specified. 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 Add Metamucil. Improved. Plan - Discharge Summary Discharge Rx Participant: No New Discharge Prescriptions: New Vancomycin 1,250 mg IVPB Q12H #14 vial Fluconazole [Diflucan] 100 mg PO DAILY #7 tab Psyllium Husk 100% [Metamucil Packet] 6 gm PO DAILY #30 packet Continue Cariprazine HCl [Vraylar] 3 mg PO DAILY DULoxetine HCL [Cymbalta] 60 mg PO BID Tolterodine Tartrate [Detrol LA] 4 mg PO DAILY Omeprazole [PriLOSEC] 20 mg PO AC-BID Levothyroxine Sodium [Synthroid] 100 mcg PO DAILY Gabapentin [Neurontin] 300 mg PO TID ondansetron HCL [Zofran] 8 mg PO Q8HR PRN PRN Reason: Nausea Prochlorperazine [Compazine] 10 mg PO Q6H PRN PRN Reason: Nausea And Vomiting Capecitabine [Xeloda] 500 mg PO DIRECTED Discharge Medication List Cariprazine HCl [Vraylar] 3 mg PO DAILY 03/08/19 [History] Capecitabine [Xeloda] 500 mg PO DIRECTED 06/17/20 [History] DULoxetine HCL [Cymbalta] 60 mg PO BID 06/17/20 [History] Gabapentin [Neurontin] 300 mg PO TID 06/17/20 [History] Levothyroxine Sodium [Synthroid] 100 mcg PO DAILY 06/17/20 [History] Omeprazole [PriLOSEC] 20 mg PO AC-BID 06/17/20 [History] Prochlorperazine [Compazine] 10 mg PO Q6H PRN 06/17/20 [History] Tolterodine Tartrate [Detrol LA] 4 mg PO DAILY 06/17/20 [History] ondansetron HCL [Zofran] 8 mg PO Q8HR PRN 06/17/20 [History] Fluconazole [Diflucan] 100 mg PO DAILY #7 tab 06/23/20 [Rx] Psyllium Husk 100% [Metamucil Packet] 6 gm PO DAILY #30 packet 06/23/20 [Rx] Vancomycin 1,250 mg IVPB Q12H #14 vial 06/23/20 [Rx] Follow up Appointment(s)/Referral(s): Hitesh Sue MD [STAFF PHYSICIAN] - 07/23/20 10:00 am (MRI of Brain ordered for Wednesday July 22, 2020 at 12:15 pm at [facility] and Follow-up Appt with Dr Sue is Thursday, July 23, 2020 at 10am. Also, Mailing the appts to your home.) Igor Bland DO [Primary Care Provider] - 07/01/20 1:45 pm Ambulatory/Diagnostic Orders: Basic Metabolic Panel [LAB.AMB] Location: None Selected Complete Blood Count w/diff [LAB.AMB] Location: None Selected Vancomycin,Trough [LAB.AMB] Location: None Selected Patient Instructions/Handouts: Fluconazole (By mouth), Vancomycin (By injection) Activity/Diet/Wound Care/Special Instructions: * Pt instructed call [facility] prior to her infusion appt on . You are on antibiotics and [facility] may want to hold treatment until antibiotics infusion is complete. Pt is set up at [facility] infusion for iv antibiotics at 7:30 am - pt is to come back at 7:30 PM for her infusion but for that infusion she will have to go to the 6th floor peds unit. you will only need iv antibiotics for 7days. Discharge Disposition: HOME SELF-CARE
== END 2020-06-23 18:51 | disposition home or self-care (01) | DRG 314 ==
LOC: EC 09:05 → 5NMEDONC 11:53
PROVIDERS: ADMIT Hospitalist; ATTEND Hospitalist
DX: T80.211A Bloodstream infection due to central venous catheter, initial encounter (principal); D61.810 Antineoplastic chemotherapy induced pancytopenia; C79.31 Secondary malignant neoplasm of brain; C79.89 Secondary malignant neoplasm of other specified sites; E87.1 Hypo-osmolality and hyponatremia; C50.911 Malignant neoplasm of unspecified site of right female breast; T45.1X5A Adverse effect of antineoplastic and immunosuppressive drugs, initial encounter; E86.0 Dehydration; K52.9 Noninfective gastroenteritis and colitis, unspecified; D70.9 Neutropenia, unspecified; R50.81 Fever presenting with conditions classified elsewhere; E87.6 Hypokalemia; F41.8 Other specified anxiety disorders; G62.9 Polyneuropathy, unspecified; K21.9 Gastro-esophageal reflux disease without esophagitis; R32 Unspecified urinary incontinence; B95.8 Unspecified staphylococcus as the cause of diseases classified elsewhere; C50.912 Malignant neoplasm of unspecified site of left female breast; E03.9 Hypothyroidism, unspecified; E86.1 Hypovolemia; G62.0 Drug-induced polyneuropathy; M81.0 Age-related osteoporosis without current pathological fracture; Z79.899 Other long term (current) drug therapy; Z80.3 Family history of malignant neoplasm of breast; Z86.19 Personal history of other infectious and parasitic diseases; Z85.3 Personal history of malignant neoplasm of breast
CPT/HCPCS: 36415; 71046; 74019; 80048; 80053; 80076; 80202; 81001; 82565; 82607; 82728; 82746; 82784; 83540; 83550; 83605; 83615; 83630; 83735; 83921; 84132; 84145; 84439; 84443; 85025; 85610; 85730; 86300; 87040; 87045; 87046; 87086; 87324; 87635; 93005

== ENCOUNTER → 2020-06-28 | Outpatient (CLI) | payer OTHER ==
[~2020-06-28] MED LIST changes: -SODIUM CHLORIDE 0.9% 500 ML 500 ML in EMPTY BAG 1 BAG IV PRN; +VANCOMYCIN 1,250 MG in SODIUM CHLORIDE 0.9% 250 ML IVPB SCH
== END ==
LOC: PEDOP 07:40
PROVIDERS: ATTEND Nurse Practitioner Family
DX: B99.9 Unspecified infectious disease (principal)

== ENCOUNTER → 2020-07-22 | Outpatient (CLI) | payer OTHER ==
--- NOTE | 2020-07-22 14:41 | MR ---
EXAMINATION TYPE: MR brain wo/w con DATE OF EXAM: 07/22/2020 COMPARISON: 04/16/2019 HISTORY: F/U cancer CONTRAST: Performed utilizing 7 mL intravenous Gadavist gadolinium contrast. TECHNIQUE: Multiplanar, multiecho imaging on a 3.0 Aubree magnet is performed through the brain. Stud y is performed within 24 hours of arrival to the hospital. The craniovertebral junction is normal. The pituitary is normal. Diffusion-weighted imaging is performed. No abnormal hyperintensity is present to suggest an acute i ntracranial infarct or acute ischemic change. There is a 0.6 x 0.3 cm subcortical ring enhancement in the right occipital lobe. This was present pr eviously and appears within measurement error is. Series 601 image 41. Susceptibility artifact is present near the interpeduncular cistern. This appears to correspond to re gion of the basilar tip aneurysm. There is some contrast enhancement anterior to the coiling suggesti ng some residual 0.5 cm aneurysm. This appears to been present previously. There are scattered punctate areas of hyperintensity on T2 and Inversion Recovery weighted sequences which are non-specific but can be related to microvascular ischemic changes. Ventricles and sulci are appropriate for the patient age. No other suspicious enhancement is evident. IMPRESSIONS: 1. Stable appearing ring-enhancing lesion posterior right occipital lobe. 2. 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 3. Chronic appearing periventricular white matter ischemic changes.
== END | disposition home or self-care (01) ==
LOC: RADMRIMAIN 12:09
PROVIDERS: ATTEND Radiology Radiation Oncology
DX: C50.412 Malignant neoplasm of upper-outer quadrant of left female breast (principal); C79.31 Secondary malignant neoplasm of brain; C79.89 Secondary malignant neoplasm of other specified sites; C77.1 Secondary and unspecified malignant neoplasm of intrathoracic lymph nodes; I67.1 Cerebral aneurysm, nonruptured; I67.82 Cerebral ischemia; Z90.13 Acquired absence of bilateral breasts and nipples
CPT/HCPCS: 70553; A9585

== ENCOUNTER → 2020-09-17 | Outpatient (CLI) | payer OTHER ==
--- NOTE | 2020-09-17 12:57 | MR ---
EXAMINATION TYPE: MR brain wo/w con DATE OF EXAM: 09/17/2020 COMPARISON: MRI brain July 22, 2020 and older study April 16, 2019 HISTORY: Malignant neoplasm L breast TECHNIQUE: Multiplanar, multisequence images of the brain and brainstem is performed without and with IV contras t, utilizing 7 mL intravenous Gadavist . FINDINGS: Diffusion weighted images demonstrate no evidence of a recent infarct or other diffusion ab normality. There are some small scattered foci of T2 hyperintensity throughout the white matter bila terally. Approximately 25 scattered lesions redemonstrated. Brain volume age appropriate and stable. Midline structures redemonstrate normal morphology. The craniocervical junction appears within normal limits. Post contrast images redemonstrate lobular enhancing prominence to the tip of the basilar artery allie uring 6.7 x 6.4 mm axial images 25 unchanged from prior studies when accounting for technical differe nces could reflect posttreatment change and/or recurrent aneurysm. There is stable subtle ring-enhancing 4.4 x 2.4 cm right occipital lesion with T2 hyperintensity axia l image 40 redemonstrated. There is new subtle enhancing 4 x 3 x 4 mm lesion inferior to this right o ccipital lobe axial image 33 and coronal image 75. The dural venous sinuses appear patent. The visualized sinuses are clear and the globes are intact. IMPRESSION: Stable suspicious rim-enhancing 4-5 mm right occipital lesion but suggestion of new 4 mm enhancing right occipital parenchymal metastatic lesion inferior to this as detailed above.
== END | disposition home or self-care (01) ==
LOC: RADMRIMAIN 11:39
PROVIDERS: ATTEND Radiology Radiation Oncology
DX: C50.412 Malignant neoplasm of upper-outer quadrant of left female breast (principal)
CPT/HCPCS: 70553; A9585

== ENCOUNTER → 2020-12-01 | Outpatient (CLI) | payer OTHER ==
--- NOTE | 2020-12-01 14:30 | MR ---
EXAMINATION TYPE: MR brain wo/w con DATE OF EXAM: 12/01/2020 COMPARISON: 09/17/2020 HISTORY: 60-year-old female C50.412 Breast cancer, C79.312. TECHNIQUE: Multiplanar, multisequence images of the brain and brainstem were acquired before and aft er administration of 6 mL IV Gadavist. Diffusion weighted imaging is performed. FINDINGS: No evidence for acute infarction, hemorrhage, mass, mass effect, midline shift, herniation, effacemen t of basal cisterns, or extra-axial fluid collection. The ventricles and sulci are age-appropriate. Stable subtle ring-enhancing lesion measuring 4 mm posterior right occipital lobe, axial image 40. Stable 5 mm vague focus of enhancement right occipital parietal junction, axial image 33. Tiny 2 mm focus of enhancement anterior left frontal lobe adjacent to the left lateral ventricle, axi al image 45. Not seen previously. T2/FLAIR weighted sequences otherwise shows stable moderate scattered burden of bright white matter c hange in both cerebral hemispheres. Signal void artifact at the top of the basilar artery compatible with patient's coil mass. There is s ome residual nodular enhancement at the margin of the coil mass from the tip of the basilar artery me asuring 7 x 3 mm, unchanged from 6-21. Midline structures otherwise demonstrate normal morphology. The craniocervical junction is normal. Post contrast images demonstrate no other evidence of pathologic enhancement. Dural venous sinuses a re patent. Persistent mild mucosal thickening ethmoid air cells and maxillary sinuses. Leftward nasal septal dev iation. Globes are intact. Redemonstrated fluid trapped within the left mastoid air cells. IMPRESSION: 1. Stable 4 mm ring-enhancing lesion posterior right occipital lobe and 5 mm vague focus of enhanceme nt right occipitoparietal junction. 2. New tiny 2 mm focus of enhancement anterior left frontal lobe adjacent to the lateral ventricle. 3. Previous aneurysm coiling at the top of the basilar artery. There is some residual nodular enhance ment along the margin of the coiling measuring 7 x 3 mm, unchanged from prior. Correlate with appropr iate neurosurgery/angiographic follow-up to exclude any residual filling of the aneurysm. 4. Moderate scattered burden of chronic small vessel ischemic disease. No acute intracranial abnormal ity seen. 5. Mild chronic ethmoid and maxillary sinus disease. Similar fluid trapped in the left mastoid air ce lls. Correlate for any mastoid pain to exclude mastoiditis.
== END | disposition home or self-care (01) ==
LOC: RADMRIMAIN 11:18
PROVIDERS: ATTEND Radiology Radiation Oncology
DX: C50.412 Malignant neoplasm of upper-outer quadrant of left female breast (principal); I67.82 Cerebral ischemia; J32.0 Chronic maxillary sinusitis
CPT/HCPCS: 70553; A9585

== ENCOUNTER → 2021-05-22 | Outpatient (CLI) | payer OTHER ==
--- NOTE | 2021-05-23 02:46 | MR ---
EXAMINATION TYPE: MR brain wo/w con DATE OF EXAM: 05/22/2021 COMPARISON: 12/01/2020 HISTORY: Breast cancer, brain metastases. CONTRAST: Standard multiplanar, multisequence MRI departmental protocol images were obtained without contrast a nd with 7.5 mL intravenous Gadavist gadolinium contrast. Multiplanar multiecho imaging of the brain without and with IV contrast. Ventricles have normal size. There is no mass effect or midline shift. There is no sign of intracrani al hemorrhage. Diffusion images show no evidence of an acute infarct. There is some cerebral cortical atrophy. There patchy areas of mild increased signal on the T2 and FLAIR images in the periventricul ar white matter. These areas measure up to 8 mm in total number is approximately 15. There is a coale scent area of increased signal right posterior parietal lobe white matter measuring 2.8 x 1.3 cm. The brainstem is intact. Cerebellum is intact. There is some mixed signal at the tip of the basilar artery consistent with aneurysm coils and metal artifact. Unchanged. Contrast images show a 7 mm ring-enhancing focus adjacent to the occipital horn right lateral ventric le.. There is some thinning of the corpus callosum. Sella turcica appears normal. Optic chiasm is normal. There is no evidence of orbital mass. IMPRESSION: Mild atrophy. White matter signal changes that could relate to microvascular ischemia or demyelinatin g disease and not significantly different than old exam. No evidence of cortical infarct. Ring enhancing focus right occipital lobe slightly increased in size compared to last exam. This coul d relate to a focus of metastatic disease.
== END | disposition home or self-care (01) ==
LOC: RADMRIMAIN 20:34
PROVIDERS: ATTEND Radiology Radiation Oncology
DX: C79.31 Secondary malignant neoplasm of brain (principal); C50.919 Malignant neoplasm of unspecified site of unspecified female breast
CPT/HCPCS: 70553

== ENCOUNTER → 2021-11-16 | Outpatient (CLI) | payer MEDICARE, OTHER ==
--- NOTE | 2021-11-16 18:11 | MR ---
EXAMINATION TYPE: MR brain wo/w con DATE OF EXAM: 11/16/2021 COMPARISON: 05/22/2021 and 12/01/2020 HISTORY: 61-year-old female C79.31, SECONDARY MALIGNANT NEOPLASM OF BRAIN TECHNIQUE: Multiplanar, multisequence images of the brain and brainstem were acquired before and aft er administration of 6.5 mL IV Gadavist. Diffusion weighted imaging is performed. FINDINGS: No evidence for acute infarction. No hydrocephalus or effacement of basal subarachnoid cisterns. No extra-axial fluid collection, midli ne shift, or hydrocephalus. The midline structures and craniocervical junction is normal. T2/FLAIR weighted sequences show moderate scattered wording of T2 bright white matter change in both cerebral hemispheres. The previous ring enhancing right occipital lobe lesion measuring 7 mm and measures 1.1 cm. Multiple additional punctate foci of enhancement and ring enhancement are now demonstrated. Bifrontal lobes, axial image 84 and 86 measuring up to 4 mm. Posterior right occipital lobe, axial image 83 measuring 5 mm. Left occipital lobe, axial image 65 measuring 4 mm. Midline cerebellar vermis measuring 4 mm, axial image 32. Left cerebellar hemisphere measuring 5 mm, axial image 30. There is a focal area of 8mm nodular enhancement at the top of the basilar artery previously measurin g 7 mm (postcontrast sagittal image 24). Leftward nasal septal deviation. Trapped fluid left mastoid air cells. IMPRESSION: 1. 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 Appropriate neurosurgery evaluation recommended. 2. Interval disease progression. Previous 7 mm right occipital lobe lesion larger at 1.1 cm. Addition al 6 new punctate foci of enhancement measuring up to 5 mm compatible with new foci of intracranial m etastases. 3. Similar moderate burden of chronic small vessel ischemic disease. 4. Continued fluid trapped within the left mastoid air cells. Correlate for any mastoid pain to exclu de mastoiditis. Critical finding texted to Dr. Sue via [employer] at 6:07 pm.
== END | disposition home or self-care (01) ==
LOC: RADMRIMAIN 10:25
PROVIDERS: ATTEND Radiology Radiation Oncology
DX: C79.31 Secondary malignant neoplasm of brain (principal)
CPT/HCPCS: 70553; A9585

== ENCOUNTER → 2022-02-19 | Outpatient (CLI) | payer MEDICARE, OTHER ==
--- NOTE | 2022-02-19 17:05 | MR ---
EXAMINATION TYPE: MR brain wo/w con DATE OF EXAM: 02/19/2022 COMPARISON: MRI brain 11/16/2021. HISTORY: Secondary malignant neoplasm of brain, hx breast cancer. TECHNIQUE: Multiplanar, multisequence images of the brain and brainstem is performed without and with IV contras t, utilizing 6.5 mL intravenous Gadavist . FINDINGS: Scattered metastatic disease. Examples include. * Similar to focus within the left cerebral hemisphere of enhancement measuring 2 mm. * Enlarging right posterior occipital lobe cyst with peripheral enhancement measuring up to 12 mm, p reviously 7 mm * Similar size of bilateral frontal lobe lesions measuring 2 mm on the right and 4 mm on the left. T he left is more conspicuous on today's exam. * New right occipital lobe peripherally enhancing focus measuring 4 mm. * Enlarging left occipital lobe lesion measuring 5 mm previously 2 mm. * Enlarging focus within the central cerebellum near midline measuring 3 mm previously 2 mm. Diffusion weighted images demonstrate no evidence of a recent infarct or other diffusion abnormality. There is no extra-axial fluid collection. Scattered white matter high T2 signal throughout the brai n The ventricular system and cisternal spaces are normal in size and appearance. The brain volume is age appropriate. Midline structures demonstrate normal morphology. The craniocervical junction appears within normal limits. The dural venous sinuses appear patent. Bilateral aphakia. No significant paranasal sinus di sease. Bilateral mastoid air cell effusions left greater than right. Redemonstration of saccular aneurysm at the basilar tip measuring 6 x 4 mm which is unchanged given d ifferences in technique from prior. IMPRESSION: 1. Scattered enhancing foci within the cerebrum and cerebellum some of which have progressed and enl arged from prior as described above. 2. 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 3. Nonspecific white matter changes, likely related to small vessel ischemic disease. 4. Similar bilateral mastoid air cell effusions.
== END | disposition home or self-care (01) ==
LOC: RADMRIMAIN 15:20
PROVIDERS: ATTEND Radiology Radiation Oncology
DX: C79.31 Secondary malignant neoplasm of brain (principal); H74.8X3 Other specified disorders of middle ear and mastoid, bilateral
CPT/HCPCS: 70553; A9585

== ENCOUNTER → 2022-08-27 | Outpatient (CLI) | payer MEDICARE, OTHER ==
--- NOTE | 2022-08-28 08:26 | MR ---
EXAMINATION TYPE: MR brain wo/w con DATE OF EXAM: 08/27/2022 5:38 PM CLINICAL INDICATION:Female, 62 years old with history of C79.31; History of breast cancer/neck/ esop hagus with mets, follow up COMPARISON: Multiple dilated MRI most recent 06/02/2022 TECHNIQUE: Multi planar, multi sequence imaging was performed through the brain including: T1, T2, In version recovery, susceptibility weighted imaging and gradient echo imaging and Diffusion weighted im aging. The patient was then given intravenous contrast and multi planar, T1 fat-saturation images wer e obtained. IV Contrast: 7 cc Gadavist FINDINGS: Motion limits evaluation and comparison. Scattered metastatic disease. Examples include. * Interval increase in circumferential enhancement of the right occipital lobe lesion now measuring 17 x 15 previously 10 x 9 mm , with circumferential enhancement and small projections of enhancement extending centrally. Increasing vasogenic edema compared to prior. * Bilateral frontal lobe and left occipital lobe foci seen prior are not visualized may be due to te chnique. * Redemonstration of right occipital lobe peripherally enhancing focus measuring 4 mm. Given differe nces in slice selection. * Similar left occipital lobe 4 mm. * Similar focus within the central cerebellum near midline measuring 3 mm previously 2 mm. Diffusion weighted images demonstrate no evidence of a recent infarct or other diffusion abnormality. There is no extra-axial fluid collection. Scattered white matter high T2 signal throughout the brai n The ventricular system and cisternal spaces are normal in size and appearance. The brain volume is age appropriate. Midline structures demonstrate normal morphology. The craniocervical junction appears within normal limits. The dural venous sinuses appear patent. Bilateral aphakia. No significant paranasal sinus di sease. Bilateral mastoid air cell effusions left greater than right. Similar saccular aneurysm at the basilar tip measuring 6 x 4 mm which is unchanged given differences in technique from prior. IMPRESSION: 1. Increasing size and enhancement of the right occipital lobe peripherally enhancing lesion. The re mainder of the lesions appears stable. 2. 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 3. Nonspecific white matter changes, likely related to small vessel ischemic disease. 4. Similar bilateral mastoid air cell effusions.
== END | disposition home or self-care (01) ==
LOC: RADMRIMAIN 16:17
PROVIDERS: ATTEND Radiology Radiation Oncology
DX: C79.31 Secondary malignant neoplasm of brain (principal); C50.412 Malignant neoplasm of upper-outer quadrant of left female breast; I72.5 Aneurysm of other precerebral arteries; J34.89 Other specified disorders of nose and nasal sinuses; G93.89 Other specified disorders of brain
CPT/HCPCS: 70553; A9585

== ENCOUNTER 2022-09-08 09:12 | Inpatient (IN) | payer MEDICARE, OTHER ==
[2022-09-08] MEDS ORDERED: OXYMETAZOLINE 0.05% NASL SPRAY 1 SPRAY BOTTLE NASAL STA (10:15)
[2022-09-08] MEDS ORDERED: TRANEXAMIC ACID 1,000 MG/10 ML VIAL MISCELLANE ONE (10:15)
[2022-09-08 11:24] LABS: Basophils % (A) 0 %; Eosinophils % (A) 2 %; HCT 25.3 % (34.0-46.0); HGB 8.4 gm/dL (11.4-16.0); Lymphocytes # (A) 0.7 k/uL (1.0-4.8); Lymphocytes % (A) 52 %; MCH 29.9 pg (25.0-35.0); MCHC 33.3 g/dL (31.0-37.0); MCV 89.7 fL (80.0-100.0); Mean Platelet Volume 6.6; Monocytes # (A) 0.1 k/uL (0-1.0); Monocytes % (A) 5 %; Neutrophils # (A) 0.5 k/uL (1.3-7.7); Neutrophils % (A) 40 %; RBC 2.82 m/uL (3.80-5.40); RDW 13.6 % (11.5-15.5)
[2022-09-08 11:37] LABS: ALT 90 U/L (4-34); AST 114 U/L (14-36); African American GFR (CKD) >90 (>60 ml/min/1.73 sqM); Alkaline Phosphatase 126 U/L (38-126); Anion Gap 5 mmol/L; Blood Urea Nitrogen 15 mg/dL (7-17); Carbon Dioxide 27 mmol/L (22-30); Chloride 102 mmol/L (98-107); Glucose 138 mg/dL (74-99); Non-African American GFR(CKD) >90 (>60 ml/min/1.73 sqM); Potassium 3.5 mmol/L (3.5-5.1); Sodium 134 mmol/L (137-145); Total Bilirubin 1.3 mg/dL (0.2-1.3); Total Protein 5.6 g/dL (6.3-8.2)
[2022-09-08] MEDS ORDERED: ONDANSETRON 4 MG/2 ML VIAL IVP STA (11:37)
[2022-09-08 12:18] LABS: Platelet Count 6 k/uL (150-450); WBC 1.3 k/uL (3.8-10.6)
[2022-09-08] MEDS ORDERED: ONDANSETRON 4 MG/2 ML VIAL IVP PRN (13:34)
[2022-09-08] MEDS ORDERED: NALOXONE 0.4 MG/ML 1 ML VIAL IV PRN (13:34)
--- NOTE | 2022-09-08 13:34 | ED ---
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 Patient states that her nose started bleeding last night at 9 PM. She has attempted to hold pressure however every time she blows her nose the bleeding will start up again. She reports that she has a history of epistaxis however not one that lasted this long. She does have a hole in her septum. She denies any facial trauma. Upon questioning the patient does inform me that she is currently on chemo with her last treatment last week. She has not had any follow-up blood work since the chemo was infused. Does admit that she has required blood products previously. She denies any chest pain. No shortness of breath. No other alleviating, precipitating or modifying factors - Related Data Home Medications Medication Instructions Recorded Confirmed DULoxetine HCL [Cymbalta] 60 mg PO BID 06/17/20 09/08/22 Gabapentin [Neurontin] 300 mg PO TID 06/17/20 09/08/22 Omeprazole [PriLOSEC] 20 mg PO DAILY 06/17/20 09/08/22 Albuterol Sulfate [Albuterol 2 puff PO RT-Q6H PRN 09/08/22 09/08/22 Sulfate Hfa] Brexpiprazole [Rexulti] 2 mg PO HS 09/08/22 09/08/22 Levothyroxine Sodium [Synthroid] 125 mcg PO DAILY 09/08/22 09/08/22 Mirabegron [Myrbetriq] 50 mg PO DAILY 09/08/22 09/08/22 Potassium Chloride ER [K-Dur 20] 20 meq PO DAILY 09/08/22 09/08/22 Tiotropium 2.5 Mcg/Puff [Spiriva 2 puff INHALATION RT-DAILY 09/08/22 09/08/22 Respimat 2.5 Mcg] Allergies Allergy/AdvReac Type Severity Reaction Status Date / Time adhesive tape Allergy Rash/Hives Verified 09/08/22 12:06 tramadol HCl [From Ultram] Allergy Rash/Hives Verified 09/08/22 12:06 Review of Systems ROS Statement: Those systems with pertinent positive or pertinent negative responses have been documented in the HPI. ROS Other: All systems not noted in ROS Statement are negative. Past Medical History Past Medical History: Cancer Additional Past Medical History / Comment(s): BRAIN ANEURYSM 2008 REQUIRED COILING AT [facility]. BREAST CANCER 2012 & 10/2017,2019. HOSPITALIZED RECENTLY FOR FEVER AND LOW NEUTROPHILS. History of Any Multi-Drug Resistant Organisms: ESBL Date of last positivie culture/infection: 01/05/18 MDRO Source:: ESBL URINE Past Surgical History: Bladder Surgery, Breast Surgery, Orthopedic Surgery, Tubal Ligation Additional Past Surgical History / Comment(s): thyroid NODULE REMOVED. BILAT MASTECTOMY W/FLAP AND CHEMO 2012. COLONOSCOPY. D & C. BLADDER SUSPENSION; Shoulder Arthroscopy Past Anesthesia/Blood Transfusion Reactions: No Reported Reaction Past Psychological History: Anxiety, Depression Smoking Status: Never smoker Past Alcohol Use History: None Reported Past Drug Use History: None Reported - Past Family History Mother Family Medical History: No Reported History Additional Family Medical History / Comment(s): Mother of burst colon Father Family Medical History: No Reported History Additional Family Medical History / Comment(s): cousin had breast CA General Exam Limitations: no limitations General appearance: alert, in no apparent distress Head exam: Present: atraumatic, normocephalic, normal inspection Eye exam: Present: normal appearance, PERRL, EOMI. Absent: scleral icterus, conjunctival injection, periorbital swelling ENT exam: Present: other (septal perforation - significant bleeding bilateral nares - bright in coloration. posterior pharynx has active blood) Neck exam: Present: normal inspection. Absent: tenderness, meningismus, lymphadenopathy Respiratory exam: Present: normal lung sounds bilaterally. Absent: respiratory distress, wheezes, rales, rhonchi, stridor Cardiovascular Exam: Present: regular rate, normal rhythm, normal heart sounds. Absent: systolic murmur, diastolic murmur, rubs, gallop, clicks Course Vital Signs 09/08/22 09/08/22 09/08/22 09:22 14:56 16:24 Temperature 97.3 F L 97.7 F Pulse Rate 144 H 131 H 126 H Respiratory 18 20 Rate Blood Pressure 102/63 111/74 95/59 O2 Sat by Pulse 93 L 97 96 Oximetry 09/08/22 09/08/22 09/08/22 16:41 17:01 17:37 Temperature 98.3 F 98.1 F Pulse Rate 115 H 115 H 147 H Respiratory 19 20 15 Rate Blood Pressure 92/70 104/74 O2 Sat by Pulse 95 98 Oximetry 09/08/22 09/08/22 09/08/22 17:40 17:50 18:00 Temperature Pulse Rate 131 H 122 H 123 H Respiratory 15 18 24 Rate Blood Pressure 95/75 104/82 O2 Sat by Pulse 99 97 Oximetry 09/08/22 09/08/22 09/08/22 18:30 19:00 19:30 Temperature Pulse Rate 123 H 121 H 118 H Respiratory 17 15 19 Rate Blood Pressure O2 Sat by Pulse Oximetry 09/08/22 09/08/22 19:50 20:00 Temperature Pulse Rate 129 H 117 H Respiratory 18 14 Rate Blood Pressure 113/64 O2 Sat by Pulse 99 Oximetry EKG Findings - EKG Comments: EKG Findings:: EKG interpreted by myself demonstrates sinus tachycardia with a rate of 130. HI interval 137. QRS 79. QTC of 375. No acute ST segment elevations or depressions Medical Decision Making - Medical Decision Making Was pt. sent in by a medical professional or institution (, PA, ELECTRONICS WORKER, urgent care, hospital, or residential...) When possible be specific @ -No Did you speak to anyone other than the patient for history (EMS, parent, family, police, friend...)? What history was obtained from this source @ -No Did you review nursing and triage notes (agree or disagree)? Why? @ -I reviewed and agree with nursing and triage notes Were old charts reviewed (outside hosp., previous admission, EMS record, old EKG, old radiological studies, urgent care reports/EKG's, residential records)? Report findings @ -old charts were reviewed - patient is very quiet about previous history so I scanned patients chart to understand what type of cancer she has Differential Diagnosis (chest pain, altered mental status, abdominal pain women, abdominal pain men, vaginal bleeding, weakness, fever, dyspnea, syncope, headache, dizziness, GI bleed, back pain, seizure, CVA, palpatations, mental health, musculoskeletal)? @ -anterior epistaxis, posterior epistaxis, blood dyscracia, chemo- induced pancytopenia EKG interpreted by me (3pts min.). @ -yes - sinus tachycardia X-rays interpreted by me (1pt min.). @ -None done CT interpreted by me (1pt min.). @ -None done U/S interpreted by me (1pt. min.). @ -None done What testing was considered but not performed or refused? (CT, X-rays, U/S, labs)? Why? @ -None What meds were considered but not given or refused? Why? @ -None Did you discuss the management of the patient with other professionals (professionals i.e. , PA, ELECTRONICS WORKER, lab, RT, psych nurse, healthcare social worker, media relations coordinator, teacher, corporate compliance officer, case coordinator)? Give summary @ -yes, admitting physician Dr. Palma Was smoking cessation discussed for >3mins.? @ -No Was critical care preformed (if so, how long)? @ -Yes, 35 minutes for significantly low platelets requiring transfusion Were there social determinants of health that impacted care today? How? (Homelessness, low income, unemployed, alcoholism, drug addiction, tra nsportation, low edu. Level, literacy, decrease access to med. care, longterm, rehab)? @ -No Was there de-escalation of care discussed even if they declined (Discuss DNR or withdrawal of care, Hospice)? DNR status @ -No What co-morbidities impacted this encounter? (DM, HTN, Smoking, COPD, CAD, Cancer, CVA, ARF, Chemo, Hep., AIDS, mental health diagnosis, sleep apnea, morbid obesity)? @ -breast cancer with mets, on chemo Was patient admitted / discharged? Hospital course, mention meds given and route, prescriptions, significant lab abnormalities, going to OR and other pertinent info. @ -Upon arrival patient was placed into room 6. Thorough history and physical exam was performed. I did attempt to get the patient's nose to stop bleeding with TXA and Afrin. Cotton plegets are left in the patients nares however she continues to copiously bleed. Due to perforated septum, I can not determine side of bleeding. The patient does require bilateral nasal packing. Laboratory studies are conducted which demonstrated a platelet count of 6. Patient is typed and crossmatched for a pack of platelets. Recommended admission for ENT and oncology consult. Patient was agreeable to this. She remains in hemodynamically stable condition awaiting a bed on the floor. Spoke with Dr. Palma who agreed to admit the patient Undiagnosed new problem with uncertain prognosis? @ -yes Drug Therapy requiring intensive monitoring for toxicity (Heparin, Nitro, Insulin, Cardizem)? @ -Platelet transfusion Were any procedures done? @ -Bilateral nasal packing Diagnosis/symptom? @ -acute bilateral epistaxis, acute pancytopenia, breast ca on active chemo Acute, or Chronic, or Acute on Chronic? @ -acute - epistaxis, pancytopenia (breast cancer - chronic) Uncomplicated (without systemic symptoms) or Complicated (systemic symptoms)? @ -complicated Side effects of treatment? @ -No Exacerbation, Progression, or Severe Exacerbation? @ -No Poses a threat to life or bodily function? How? (Chest pain, USA, IA, pneumonia, PE, COPD, DKA, ARF, appy, cholecystitis, CVA, Diverticulitis, Homicidal, Suicidal, threat to staff... and all critical care pts) @ -Yes, patient could have spontaneous brain bleed and with low platelets and known brain mets - no ams at this time - Lab Data Result diagrams: 09/10/22 04:53 09/10/22 04:53 Lab Results 09/08/22 09/08/22 09/08/22 Range/Units 11:06 11:06 12:40 WBC 1.3 L* (3.8-10.6) k/uL RBC 2.82 L (3.80-5.40) m/uL Hgb 8.4 L (11.4-16.0) gm/dL Hct 25.3 L (34.0-46.0) % MCV 89.7 (80.0-100.0) fL MCH 29.9 (25.0-35.0) pg MCHC 33.3 (31.0-37.0) g/dL RDW 13.6 (11.5-15.5) % Plt Count 6 L* (150-450) k/uL MPV 6.6 Neutrophils % 40 % Lymphocytes % 52 % Monocytes % 5 % Eosinophils % 2 % Basophils % 0 % Neutrophils # 0.5 L (1.3-7.7) k/uL Lymphocytes # 0.7 L (1.0-4.8) k/uL Monocytes # 0.1 (0-1.0) k/uL Eosinophils # 0.0 (0-0.7) k/uL Basophils # 0.0 (0-0.2) k/uL Manual Slide Review Performed Sodium 134 L (137-145) mmol/L Potassium 3.5 (3.5-5.1) mmol/L Chloride 102 (98-107) mmol/L Carbon Dioxide 27 (22-30) mmol/L Anion Gap 5 mmol/L BUN 15 (7-17) mg/dL Creatinine 0.46 L (0.52-1.04) mg/dL Est GFR (CKD-EPI)AfAm >90 (>60 ml/min/1.73 sqM) Est GFR (CKD-EPI)NonAf >90 (>60 ml/min/1.73 sqM) Glucose 138 H (74-99) mg/dL Calcium 10.0 (8.4-10.2) mg/dL Total Bilirubin 1.3 (0.2-1.3) mg/dL AST 114 H (14-36) U/L ALT 90 H (4-34) U/L Alkaline Phosphatase 126 (38-126) U/L Total Protein 5.6 L (6.3-8.2) g/dL Albumin 3.0 L (3.5-5.0) g/dL Blood Type O Negative Blood Type Recheck O Neg Bld Type Recheck Status No Antibody Screen NEGATIVE Crossmatch See Detail Transfuse Platelets Spec Expiration Date 09/11/2022 - 233909/08/22 Range/Units 13:33 WBC (3.8-10.6) k/uL RBC (3.80-5.40) m/uL Hgb (11.4-16.0) gm/dL Hct (34.0-46.0) % MCV (80.0-100.0) fL MCH (25.0-35.0) pg MCHC (31.0-37.0) g/dL RDW (11.5-15.5) % Plt Count (150-450) k/uL MPV Neutrophils % % Lymphocytes % % Monocytes % % Eosinophils % % Basophils % % Neutrophils # (1.3-7.7) k/uL Lymphocytes # (1.0-4.8) k/uL Monocytes # (0-1.0) k/uL Eosinophils # (0-0.7) k/uL Basophils # (0-0.2) k/uL Manual Slide Review Sodium (137-145) mmol/L Potassium (3.5-5.1) mmol/L Chloride (98-107) mmol/L Carbon Dioxide (22-30) mmol/L Anion Gap mmol/L BUN (7-17) mg/dL Creatinine (0.52-1.04) mg/dL Est GFR (CKD-EPI)AfAm (>60 ml/min/1.73 sqM) Est GFR (CKD-EPI)NonAf (>60 ml/min/1.73 sqM) Glucose (74-99) mg/dL Calcium (8.4-10.2) mg/dL Total Bilirubin (0.2-1.3) mg/dL AST (14-36) U/L ALT (4-34) U/L Alkaline Phosphatase (38-126) U/L Total Protein (6.3-8.2) g/dL Albumin (3.5-5.0) g/dL Blood Type Blood Type Recheck Bld Type Recheck Status Antibody Screen Crossmatch Transfuse Platelets 09/08/22 Spec Expiration Date Disposition Clinical Impression: Anterior epistaxis, Thrombocytopenia, Chemotherapy induced neutropenia Disposition: ADMITTED IP TO THIS [facility] Condition: Serious Is patient prescribed a controlled substance at d/c from ED?: No Time of Disposition: 13:33 Decision to Admit Reason: Admit from EC Decision Date: 09/08/22 Decision Time: 13:33
[2022-09-08] MEDS: SODIUM CHLORIDE 0.9% 1,000 ML IV SCH (16:33)
[2022-09-08 17:19] LABS: HCT 21.1 % (34.0-46.0); HGB 7.3 gm/dL (11.4-16.0); MCH 30.2 pg (25.0-35.0); MCHC 34.4 g/dL (31.0-37.0); MCV 87.8 fL (80.0-100.0); Mean Platelet Volume 8.6; RDW 13.7 % (11.5-15.5)
[2022-09-08 18:11] LABS: WBC 1.3 k/uL (3.8-10.6)
[2022-09-08 18:12] LABS: Platelet Count 3 k/uL (150-450)
[2022-09-08 18:29] LABS: Band Neutrophils % 1 %; Lymphocytes # (M) 0.51 k/uL (1.0-4.8); Neutrophils % (M) 60 %; Nucleated Red Blood Cells 0 /100 WBC (0-0); Total Cells Counted 100
[2022-09-08 18:32] LABS: Tear Drop Cells Present
[2022-09-09] MEDS: ACETAMINOPHEN TAB 500 MG TAB PO PRN ×4 (00:20→21:52)
[2022-09-09] MEDS ORDERED: ALBUTEROL NEBULIZED 2.5 MG/3 ML INHALATION PRN (00:37)
[2022-09-09] MEDS: SODIUM CHLORIDE 0.9% 1,000 ML IV SCH ×2 (03:53→17:15)
[2022-09-09] MEDS ORDERED: LEVOTHYROXINE 125 MCG TAB PO SCH (06:30)
[2022-09-09] MEDS: GABAPENTIN 300 MG CAP PO SCH ×3 (08:24→22:59)
[2022-09-09] MEDS: DULoxetine HCL 60 MG CAPSULE.DR PO SCH ×2 (08:24→22:58)
[2022-09-09] MEDS: IPRATROPIUM 0.5 MG/2.5 ML NEBU INHALATION SCH ×4 (08:55→21:44)
[2022-09-09] MEDS ORDERED: POTASSIUM CHLORIDE ER 20 MEQ TAB.ER PO SCH (09:00)
[2022-09-09] MEDS ORDERED: NON FORMULARY DRUG (Mirabegron [Myrbetriq] 50 MG Tab.Er.24h) PO SCH (09:00)
[2022-09-09] MEDS ORDERED: PANTOPRAZOLE 40 MG TABLET PO SCH (09:00)
[2022-09-09 09:34] LABS: MCH 30.6 pg (25.0-35.0); MCHC 33.6 g/dL (31.0-37.0); Mean Platelet Volume 8.6; RBC 1.96 m/uL (3.80-5.40); RDW 13.5 % (11.5-15.5)
[2022-09-09 09:48] LABS: African American GFR (CKD) >90 (>60 ml/min/1.73 sqM); Anion Gap 5 mmol/L; Blood Urea Nitrogen 14 mg/dL (7-17); Calcium 10.2 mg/dL (8.4-10.2); Carbon Dioxide 29 mmol/L (22-30); Chloride 100 mmol/L (98-107); Glucose 131 mg/dL (74-99); Non-African American GFR(CKD) >90 (>60 ml/min/1.73 sqM); Potassium 3.6 mmol/L (3.5-5.1); Sodium 134 mmol/L (137-145)
[2022-09-09 10:00] LABS: WBC 0.6 k/uL (3.8-10.6)
[2022-09-09 10:01] LABS: HCT 17.8 % (34.0-46.0); Platelet Count 9 k/uL (150-450)
--- NOTE | 2022-09-09 11:28 | P.HPIM ---
History of Present Illness H&P Date: 09/08/22 Chief Complaint: Nose Bleed Patient is a 62-year-old female with a known history of metastatic breast cancer currently undergoing chemotherapy, last dose on presents to ER with complaints of. Patient states that she started havingbleeding around 9 PM last night. Patient attempted to hold pressure however whenever she blows her nose bleeding restarted again. Patient did have history of prior epistaxis. States that she has a hole in her septum. Denied any trauma. Denied any complaints of chest pain or shortness of breath. No nausea vomiting or abdominal pain or diarrhea. No cough or sputum production. Laboratory data showed WBC 1.3 hemoglobin 8.4 and platelets 6 Sodium 134 potassium 3.5 chloride 1-2 bicarb is 27 BUN 15 creatinine 0.46 and blood sugar 138 AST 114 ALT 90 alk phos 126 and albumin 3.0 EKG showed sinus tachycardia. Review of Systems Constitutional: Patient denies any fever or chills . No generalized weakness or weight loss. Abdomen: Patient denied nausea vomiting and diarrhea and abdominal pain. Cardiovascular: Patient denies any chest pain or short of breath no palpitations. Respiratory: patient denied any cough is from production. No shortness of breath Neurologic: Patient denied any numbness or tingling headache. Musculoskeletal: Patient denies any complaints of joint swelling or deformity. Skin: Negative Psychiatric: Negative Endocrine: No heat or cold intolerance. No recent weight gain. Genitourinary: No dysuria or hematuria. All other 14 point ROS negative except the above Past Medical History Past Medical History: Cancer Additional Past Medical History / Comment(s): BRAIN ANEURYSM 2007 REQUIRED COILING AT [facility]. BREAST CANCER 2012 & 10/2017,2019. HOSPITALIZED RECENTLY FOR FEVER AND LOW NEUTROPHILS. History of Any Multi-Drug Resistant Organisms: ESBL Date of last positivie culture/infection: 01/05/18 MDRO Source:: ESBL URINE Past Surgical History: Bladder Surgery, Breast Surgery, Orthopedic Surgery, Tubal Ligation Additional Past Surgical History / Comment(s): thyroid NODULE REMOVED. BILAT MASTECTOMY W/FLAP AND CHEMO 2012. COLONOSCOPY. D & C. BLADDER SUSPENSION; Shoulder Arthroscopy Past Anesthesia/Blood Transfusion Reactions: No Reported Reaction Past Psychological History: Anxiety, Depression Smoking Status: Never smoker Past Alcohol Use History: None Reported Past Drug Use History: None Reported - Past Family History Mother Family Medical History: No Reported History Additional Family Medical History / Comment(s): Mother of burst colon Father Family Medical History: No Reported History Additional Family Medical History / Comment(s): cousin had breast CA Medications and Allergies Home Medications Medication Instructions Recorded Confirmed Type DULoxetine HCL [Cymbalta] 60 mg PO BID 06/17/20 09/08/22 History Gabapentin [Neurontin] 300 mg PO TID 06/17/20 09/08/22 History Omeprazole [PriLOSEC] 20 mg PO DAILY 06/17/20 09/08/22 History Albuterol Sulfate [Albuterol 2 puff PO RT-Q6H PRN 09/08/22 09/08/22 History Sulfate Hfa] Brexpiprazole [Rexulti] 2 mg PO HS 09/08/22 09/08/22 History Levothyroxine Sodium [Synthroid] 125 mcg PO DAILY 09/08/22 09/08/22 History Mirabegron [Myrbetriq] 50 mg PO DAILY 09/08/22 09/08/22 History Potassium Chloride ER [K-Dur 20] 20 meq PO DAILY 09/08/22 09/08/22 History Tiotropium 2.5 Mcg/Puff [Spiriva 2 puff INHALATION RT-DAILY 09/08/22 09/08/22 History Respimat 2.5 Mcg] Allergies Allergy/AdvReac Type Severity Reaction Status Date / Time adhesive tape Allergy Rash/Hives Verified 09/08/22 12:06 tramadol HCl [From Ultram] Allergy Rash/Hives Verified 09/08/22 12:06 Physical Exam Vitals: Vital Signs Temp Pulse Resp BP Pulse Ox 09/08/22 09:22 97.3 F L 144 H 18 102/63 93 L Intake and Output 09/07/22 09/08/22 09/08/22 22:59 06:59 14:59 Other: Weight 65.317 kg PHYSICAL EXAMINATION: Patient is lying in the bed comfortably, no acute distress, awake alert and oriented.. HEENT: Normocephalic. Neck is supple. Pupils reactive. Nostrils Liane bilaterally. Oral cavity is moist. Neck reveals no JVD, carotid bruits, or thyromegaly. CHEST EXAMINATION: Trachea is central. Symmetrical expansion. Lung carrillo clear to auscultation and percussion. CARDIAC: Normal S1, S2 with no gallops. No murmurs ABDOMEN: Soft. Bowel sounds normal. No organomegaly. No abdominal bruits. Extremities: reveal no edema. No clubbing or cyanosis Neurologically awake, alert, oriented x3 with well-coordinated movements. No focal deficits noted Skin: No rash or skin lesions. Psychiatric: Coperative. Nonsuicidal Musculoskeletal: No joint swelling or deformity. Normal range of motion. Results CBC & Chem 7: 09/09/22 09:10 09/09/22 09:10 Labs: Abnormal Lab Results - Last 24 Hours (Table) 09/08/22 09/08/22 Range/Units 11:06 11:06 WBC 1.3 L* (3.8-10.6) k/uL RBC 2.82 L (3.80-5.40) m/uL Hgb 8.4 L (11.4-16.0) gm/dL Hct 25.3 L (34.0-46.0) % Plt Count 6 L* (150-450) k/uL Neutrophils # 0.5 L (1.3-7.7) k/uL Lymphocytes # 0.7 L (1.0-4.8) k/uL Sodium 134 L (137-145) mmol/L Creatinine 0.46 L (0.52-1.04) mg/dL Glucose 138 H (74-99) mg/dL AST 114 H (14-36) U/L ALT 90 H (4-34) U/L Total Protein 5.6 L (6.3-8.2) g/dL Albumin 3.0 L (3.5-5.0) g/dL Thrombosis Risk Factor Assmnt - DVT/VTE Prophylaxis DVT/VTE Prophylaxis: Mechanical Prophylaxis ordered Assessment and Plan Assessment: Acute nosebleed likely due to severe thrombocytopenia. Status nose pack in the ER. Acute blood loss anemia secondary to above Pancytopenia likely due to recent chemotherapy Metastatic breast cancer currently undergoing chemotherapy at [facility] History of brain aneurysm requiring coiling at [facility] Anxiety/depression DVT prophylaxis with SCDs Plan: Patient is status post packing of the bilateral nostrils in the ER. ENT was consulted for evaluation. Continue to monitor H&H. Patient will be transfused with 5 units of platelets and monitor. Oncology consult due to pancytopenia. Continue with home medications and follow closely. Time with Patient: Greater than 30
[2022-09-09 12:39] LABS: Tear Drop Cells Present
[2022-09-09] MEDS ORDERED: FUROSEMIDE 10 MG/ML 2 ML VIAL IV STA (13:53)
--- NOTE | 2022-09-09 13:54 | P.CONS ---
History of Present Illness - Reason for Consult Consult date: 09/09/22 hx breast cancer Requesting physician: Estefanía Ortiz - Chief Complaint chest pain - History of Present Illness Patient is a 62-year-old female with a significant history of metastatic breast cancer. She is a patient of Dr. Penny but has not been seen in our clinic since 03/2019. Patient follows up at [facility] and follows with Dr. Croft. Patient completed her first cycle of chemotherapy last . Patient does not know what chemotherapy she is receiving. She was diagnosed with left breast cancer in . Core biopsy which confirmed invasive ductal carcinoma. Pt received neoadjuvant chemo and had a partial left breast mastectomy and sentinel nodes biopsy in 10/2012. She has been on multiple chemo regimens due to disease progression. Patient presented to the emergency room for epistaxis. We are consulted due to history of metastatic breast cancer. Patient reports 2 nights ago she began having epistaxis and reports the blood was gushing out of her nose, at which time she presented to the ER for further evaluation. Bilateral nares were packed with some improvement in epistaxis. Patient does report she is still spitting up blood from the epistaxis. She also complains of headache. She denies visual disturbances, fever and chills. Upon admission hemoglobin 7.3, WBC 1.3, ANC 700, platelets 3000. Patient was given 1 unit of platelets yes terday. Repeat hemoglobin today 6.0, WBC 0.6, platelets 9000. 1 unit PRBCs and 2 units of platelets ordered. Review of Systems 10 point ROS is negative except as stated in the HPI Past Medical History Past Medical History: Cancer, COPD Additional Past Medical History / Comment(s): BRAIN ANEURYSM 2007 REQUIRED COILING AT [facility]. BREAST CANCER 2011- left breast initially. 2013 breast cancer remission until 2018. right chest port for iv [facility] 1 week off- last infusion 09/02/22). metastasis to chest wall and brain per patient. Left arm lymphedema. low neutrophils, fevers History of Any Multi-Drug Resistant Organisms: ESBL Year Discovered:: 01/05/18 MDRO Source:: ESBL URINE Past Surgical History: Bladder Surgery, Breast Surgery, Orthopedic Surgery, Tubal Ligation Additional Past Surgical History / Comment(s): thyroid NODULE REMOVED. BILAT MASTECTOMY W/FLAP AND CHEMO 2012. COLONOSCOPY. D & C. BLADDER SUSPENSION; Shoulder Arthroscopy. radiation to head Past Anesthesia/Blood Transfusion Reactions: No Reported Reaction Past Psychological History: Anxiety, Depression Additional Psychological History / Comment(s): [place] She is independent. Patient's sister Flory drives her to [facility] for chemotherapy infusions. Patient has 1 son named Destin. Smoking Status: Never smoker Past Alcohol Use History: None Reported Additional Past Alcohol Use History / Comment(s): Pt started smoking in 1975 and quit in 2005. Past Drug Use History: None Reported - Past Family History Mother Family Medical History: No Reported History Additional Family Medical History / Comment(s): Mother of burst colon Father Family Medical History: No Reported History Additional Family Medical History / Comment(s): cousin had breast CA Medications and Allergies Home Medications Medication Instructions Recorded Confirmed Type DULoxetine HCL [Cymbalta] 60 mg PO BID 06/17/20 09/08/22 History Gabapentin [Neurontin] 300 mg PO TID 06/17/20 09/08/22 History Omeprazole [PriLOSEC] 20 mg PO DAILY 06/17/20 09/08/22 History Albuterol Sulfate [Albuterol 2 puff PO RT-Q6H PRN 09/08/22 09/08/22 History Sulfate Hfa] Brexpiprazole [Rexulti] 2 mg PO HS 09/08/22 09/08/22 History Levothyroxine Sodium [Synthroid] 125 mcg PO DAILY 09/08/22 09/08/22 History Mirabegron [Myrbetriq] 50 mg PO DAILY 09/08/22 09/08/22 History Potassium Chloride ER [K-Dur 20] 20 meq PO DAILY 09/08/22 09/08/22 History Tiotropium 2.5 Mcg/Puff [Spiriva 2 puff INHALATION RT-DAILY 09/08/22 09/08/22 History Respimat 2.5 Mcg] Allergies Allergy/AdvReac Type Severity Reaction Status Date / Time adhesive tape Allergy Rash/Hives Verified 09/08/22 12:06 tramadol HCl [From Ultram] Allergy Rash/Hives Verified 09/08/22 12:06 Physical Exam Vitals: Vital Signs Temp Pulse Pulse Resp BP BP Pulse Ox 09/09/22 09:05 108 H 09/09/22 08:55 110 H 09/09/22 04:13 97.6 F 109 H 18 119/79 100 09/09/22 02:00 114 H 20 09/08/22 23:56 97.8 F 114 H 20 116/72 100 09/08/22 22:31 97.6 F 122 H 20 114/73 96 09/08/22 19:50 129 H 18 113/64 99 09/08/22 17:50 122 H 18 104/82 97 09/08/22 17:40 131 H 15 95/75 99 09/08/22 17:37 147 H 15 98 09/08/22 17:01 98.1 F 115 H 20 104/74 95 09/08/22 16:41 98.3 F 115 H 19 92/70 09/08/22 16:24 97.7 F 126 H 20 95/59 96 09/08/22 14:56 131 H 111/74 97 09/08/22 09:22 97.3 F L 144 H 18 102/63 93 L Intake and Output 09/08/22 09/09/22 09/09/22 22:59 06:59 14:59 Intake Total 0 110 Balance 0 110 Intake: Oral 110 Blood Product 0 Platelet Pheresis Pas 0 Psoralen Unit [id number] Other: # Voids 1 1 Weight 63.5 kg - Constitutional General appearance: average body habitus, no acute distress - EENT bilateral nasal packing Eyes: anicteric sclerae, EOMI ENT: hearing grossly normal - Respiratory Respiratory: bilateral: wheezing - Cardiovascular Rhythm: regular Heart sounds: normal: S1, S2 Abnormal Heart Sounds: no systolic murmur, no diastolic murmur, no rub, no S3 Gallop, no S4 Gallop, no click, no other - Gastrointestinal General gastrointestinal: normal bowel sounds, soft, no tenderness - Integumentary Integumentary: pale - Neurologic Neurologic: CNII-XII intact - Musculoskeletal Musculoskeletal: strength equal bilaterally - Psychiatric Psychiatric: A&O x's 3, appropriate affect, intact judgment & insight Results CBC & Chem 7: 09/09/22 09:10 09/09/22 09:10 Labs: Abnormal Lab Results - Last 24 Hours (Table) 09/08/22 09/08/22 09/08/22 Range/Units 11:06 11:06 16:18 WBC 1.3 L* 1.3 L* (3.8-10.6) k/uL RBC 2.82 L 2.40 L (3.80-5.40) m/uL Hgb 8.4 L 7.3 L (11.4-16.0) gm/dL Hct 25.3 L 21.1 L (34.0-46.0) % Plt Count 6 L* 3 L* (150-450) k/uL Neutrophils # 0.5 L (1.3-7.7) k/uL Neutrophils # (Manual) 0.70 L (1.3-7.7) k/uL Lymphocytes # 0.7 L (1.0-4.8) k/uL Lymphocytes # (Manual) 0.51 L (1.0-4.8) k/uL Sodium 134 L (137-145) mmol/L Creatinine 0.46 L (0.52-1.04) mg/dL Glucose 138 H (74-99) mg/dL AST 114 H (14-36) U/L ALT 90 H (4-34) U/L Total Protein 5.6 L (6.3-8.2) g/dL Albumin 3.0 L (3.5-5.0) g/dL Assessment and Plan (1) Pancytopenia Current Visit: Yes Status: Acute Priority: High Code(s): D61.818 - OTHER PANCYTOPENIA SNOMED Code(s): 681161383 (2) Anterior epistaxis Current Visit: Yes Status: Acute Priority: High Code(s): R04.0 - EPISTAXIS SNOMED Code(s): 038772419 (3) Breast cancer, stage 4 Current Visit: No Status: Chronic Priority: High Code(s): C50.919 - MALIGNANT NEOPLASM OF UNSP SITE OF UNSPECIFIED FEMALE BREAST SNOMED Code(s): 031134188 Plan: Metastatic breast cancer: -Patient follows up at [facility] and follows with Dr. Croft. Patient completed her first cycle of chemotherapy last . Patient does not know what chemotherapy she is receiving. Will attempt to obtain chemo regimen/records from [facility] -She was diagnosed with left breast cancer in . Core biopsy which confirmed invasive ductal carcinoma. Pt received neoadjuvant chemo and had a partial left breast mastectomy and sentinel nodes biopsy in 10/2012. She has been on multiple chemo regimens due to disease progression. Pancytopenia: -Upon admission hemoglobin 7.3, WBC 1.3, ANC 700, platelets 3000. Patient was given 1 unit of platelets yesterday. Repeat hemoglobin today 6.0, WBC 0.6, platelets 9000. 1 unit PRBCs and 2 units of platelets ordered. -Pancytopenia r/t recent chemotherapy and acute epistaxis -Will continue to monitor counts -Please transfuse for hemoglobin of less than 7, and for platelets less than 10,000 Epistaxis: -Nasal packing in place, epistaxis improved but persisting -Likely r/t severe thrombocytopenia, platelets being given, 3 units total. Would expect improvement as platelets improve -ENT consulted Dr attests: I have performed H&P and developed impression and plan of care for patient, discussed with dictator. I agree with dictated note, documented as a scribe
--- NOTE | 2022-09-09 19:50 | XR ---
EXAMINATION TYPE: XR chest 1V DATE OF EXAM: 09/09/2022 COMPARISON: 07-06 INDICATION: Short of breath TECHNIQUE: Single frontal view of the chest is obtained. FINDINGS: The heart size is normal. The pulmonary vasculature is normal. Mild right lower lobe infiltrate is present. Correlate for pneumonia. Follow up can be performed. Rig ht-sided port is present with the tip in the distal superior vena cava region IMPRESSION: 1. Mild diffuse infiltrate right lower lobe. Correlate for pneumonia. Follow-up is recommended.
[2022-09-09] MEDS ORDERED: NON FORMULARY DRUG (Brexpiprazole [Rexulti] 2 MG Tablet) PO SCH (21:00)
[2022-09-09] MEDS ORDERED: TEMAZEPAM 15 MG CAP PO SCH (21:00)
[2022-09-09] MEDS ORDERED: ACETAMINOPHEN TAB 500 MG TAB PO PRN (22:10)
[2022-09-09 22:51] LABS: Appearance,Urine Clear (Clear); Bacteria,Urine Rare /hpf; Bilirubin,Urine Negative (Negative); Blood,Urine Negative (Negative); Color,Urine Yellow; Glucose,Urine (UA) Negative (Negative); Ketones,Urine Negative (Negative); Leukocyte Esterase,Urine Trace (Negative); Mucus,Urine Rare /hpf; Nitrite,Urine Negative (Negative); Protein,Urine Negative (Negative); RBC,Urine <1 /hpf (0-5); Specific Gravity,Urine 1.013 (1.001-1.035); Squamous Epithelial Cell,Urine 1 /hpf (0-4); Urobilinogen,Urine <2.0 mg/dL (<2.0); WBC,Urine <1 /hpf (0-5)
[2022-09-09 23:30] LABS: MCH 30.9 pg (25.0-35.0); MCHC 34.1 g/dL (31.0-37.0); MCV 90.7 fL (80.0-100.0); Mean Platelet Volume 8.2; RBC 2.06 m/uL (3.80-5.40); RDW 13.6 % (11.5-15.5)
--- NOTE | 2022-09-09 23:30 | CONS ---
CONSULTATION REASON FOR CONSULTATION: Epistaxis. HISTORY OF PRESENT ILLNESS: The patient is a 62-year-old female who is well known to my office. I have seen the patient in the past for control of nosebleeds. In the past, the patient has been receiving chemotherapy and it was noted that 1 of the chemotherapy agents that she was receiving had a side effect of possible epistaxis. On this particular occasion, the patient states that on the morning of 09/08/2022, she developed a slight nosebleed. She states that she did what she usually does and applied pressure for 4 to 5 minutes in an attempt to stop the nosebleed. It is to be noted that the patient has a history of having a nasal septal perforation. This is important because septal perforations have a tendency to bleed periodically. Despite multiple attempts to apply pressure to the area, stopping the bleeding was not possible. She therefore proceeded to [facility] and was evaluated by the emergency room physician. At that time, they were not able to stop the bleeding with the usual measures and therefore inserted bilateral Merocel nasal tampons. The patient was subsequently admitted. At the time of her admission, it was noted that her hemoglobin was approximately 8.4. Since her admission, her hemoglobin has dropped down to just below 7 and it has been elected to transfuse the patient with a unit of packed red blood cells and also platelets. Also at the time of her admission, it was noted that her platelet count was 3. The patient is resting comfortably in her room and there is no active bleeding noted, although her nasal tampons appear to be bilaterally saturated. The emergency room department could not determine which side of her nose the bleeding was coming from and therefore packed both sides of the nose. She is not currently on any type of blood thinner or anticoagulants. She is currently receiving chemotherapy for metastatic breast cancer with her most recent treatment being last week. PAST MEDICAL HISTORY: Reveals the patient has allergies to adhesive tape and tramadol. CURRENT MEDICATIONS: 1. Respimat. 2. Neurontin. 3. Cymbalta. 4. Rexulti. 5. Albuterol. 6. Prilosec. 7. Synthroid. 8. Myrbetriq. REVIEW OF SYSTEMS: RESPIRATORY: System is positive for COPD/emphysema. GASTROINTESTINAL: Positive for GERD (gastroesophageal reflux disorder). METABOLIC/ENDOCRINE: Positive for hypothyroidism. Remainder of the review of systems is unremarkable. PHYSICAL EXAMINATION: GENERAL: The patient is a 62-year-old female who is alert and cooperative and is in no acute distress at this time. She has bilateral nasal packing in place. HEENT: The patient is normocephalic. Tympanic membranes are normal. Middle ear spaces are free of any fluid or infection. Pupils equal, round, and reactive to light and accommodation. Extraocular movements within normal limits. Intranasal examination is not possible because of bilateral nasal tampon packing. The Merocel basal tampons are at this time saturated with blood, but not actively bleeding. Examination of oropharynx does not reveal any bleeding down the posterior pharyngeal wall. Remainder of the head exam is unremarkable NECK: Palpation of neck, cranial nerves 2 through 12, remainder of the neck exam is unremarkable. CHEST: Both lung carrillo are clear though lung sounds are distant. There are no rales, rhonchi, or wheezes. CARDIOVASCULAR: The patient is in regular sinus rhythm. S1 and S2 are present without any murmurs. ABDOMEN: There is no evidence any masses, megaly, or tenderness. The abdomen is soft. The remainder of physical exam is unremarkable. IMPRESSION: Bilateral anterior/posterior epistaxis. PLAN: At this time, I will leave the nasal tampons in place for the next 24 hours. I will see the patient tomorrow after 1 p.m. and at that time will most likely remove the nasal packing. Please do not remove the nasal packing before I see the patient, thank you. Once I remove the nasal packing, then I have a special regimen that I will start the patient on, which should hopefully help control her epistaxis. As a reminder, please do not remove the nasal packing before I see the patient. Allow me to remove the nasal packing, thank you. I want to take this opportunity to thank you for allowing me to assist in the care of your patient. If I can be of any further assistance, please feel free to call my office. I will follow this patient with you daily while she is in the hospital. I also spent approximately 30 minutes with this patient. MMODL / IJN: [id number] / MTDD
[2022-09-09 23:38] LABS: WBC 0.5 k/uL (3.8-10.6)
[2022-09-09 23:43] LABS: HGB 6.4 gm/dL (11.4-16.0)
[2022-09-09 23:44] LABS: HCT 18.7 % (34.0-46.0)
[2022-09-09 23:46] LABS: Platelet Count 24 k/uL (150-450)
[2022-09-10] MEDS ORDERED: PIPERACILLIN-TAZOBACTAM 3.375 GM in SODIUM CHLORIDE 0.9% 100 ML IVPB SCH ×2
[2022-09-10] MEDS ORDERED: TRANEXAMIC ACID 1,000 MG in SODIUM CHLORIDE 0.9% 100 ML IVPB ONE ×2 (00:30→08:00)
[2022-09-10] MEDS ORDERED: LACTATED RINGERS 1,000 ML IV SCH (01:15)
[2022-09-10 01:26] LABS: Glucose,Whole Blood 143 mg/dL (70-110)
[2022-09-10 05:11] LABS: HCT 25.3 % (34.0-46.0); MCH 29.7 pg (25.0-35.0); MCHC 33.6 g/dL (31.0-37.0); MCV 88.2 fL (80.0-100.0); Mean Platelet Volume 8.7; RBC 2.87 m/uL (3.80-5.40); RDW 13.9 % (11.5-15.5)
[2022-09-10 05:13] LABS: WBC 0.8 k/uL (3.8-10.6)
[2022-09-10 05:14] LABS: HGB 8.5 gm/dL (11.4-16.0)
[2022-09-10 05:15] LABS: Platelet Count 39 k/uL (150-450)
--- NOTE | 2022-09-10 05:18 | XR ---
EXAMINATION TYPE: XR chest 1V portable DATE OF EXAM: 09/10/2022 CLINICAL HISTORY: Difficulty breathing progress study. TECHNIQUE: Single AP portable semiupright view of the chest is obtained. COMPARISON: Chest x-ray from one day earlier and older studies. FINDINGS: Stable right internal jugular Mediport catheter. Chronic parenchymal changes bilaterally without suspicious new focal airspace opacity, pleural effusi on, or pneumothorax seen. Cardiac silhouette size is upper limits of normal. Bilateral hilar surgical clips are seen. Osseous structures are intact. IMPRESSION: Chronic changes without acute pulmonary process.
[2022-09-10 05:30] LABS: African American GFR (CKD) >90 (>60 ml/min/1.73 sqM); Anion Gap 9 mmol/L; Blood Urea Nitrogen 12 mg/dL (7-17); Calcium 9.4 mg/dL (8.4-10.2); Carbon Dioxide 23 mmol/L (22-30); Chloride 102 mmol/L (98-107); Glucose 133 mg/dL (74-99); Non-African American GFR(CKD) >90 (>60 ml/min/1.73 sqM); Potassium 3.4 mmol/L (3.5-5.1); Sodium 134 mmol/L (137-145)
[2022-09-10] MEDS ORDERED: MORPHINE SULFATE 4 MG/ML SYRINGE IVP PRN (05:35)
[2022-09-10 08:14] VITALS: BP 165/91; PULSE 33; RESP 19; TEMP 99
[2022-09-10] MEDS: IPRATROPIUM 0.5 MG/2.5 ML NEBU INHALATION SCH (08:52)
--- NOTE | 2022-09-20 09:53 | CDI ---
Documentation Clarification Form Date: 09/20/2022 09:41:37 AM From: Lanny Melton Phone: Admit Date: 09/08/2022 01:35:00 PM Patient Name: Kell Pennington Visit Number: [id number] Discharge Date: 09/10/2022 09:30:00 AM ATTENTION: The Clinical Documentation Specialists (CDI) and [facility] Coding Staff appreciate your assistance in clarifying documentation. Please respond to the clarification below the line at the bottom and electronically sign. The CDI & [facility] Coding staff will review the response and follow-up if needed. Please note: Queries are made part of the Legal Health Record. If you have any questions, please contact the author of this message via ITS. Dr. Shaila Navarro There is documentation of mortality. Additional clarification is requested. History/Risk Factors: 62yo F, Epistaxis d/t severethrombocytopenia, ABLA, Agranulocytosis secondary to cancer chemotherapy, pancytopeniad/t chemotherapy, metastaticbreast cancer, Hx brainaneurysmw coiling, anxiety, depression, Emphysema, lymphedema Clinical Indicators: Patient isstatus postpackingof the bilateral nostrils in the ER. Treatment: ENT was consulted forevaluation. Continue to monitor. Patient will betransfusedwith5 units of plateletsand monitor. Oncology consult due topancytopenia. Continue with home medications and follow closely. Can you please clarify the cause of ? [ ] Agranulocytosis secondary to cancer chemotherapy [ ] ABLA [ ] Metastaticbrain cancer [ ] Other, please specify [ ] Unable to determine (Template Last Revised: June 2020) not mine MTDD
--- NOTE | 2022-09-22 10:17 | CDI ---
Documentation Clarification Form Date: 09/22/2022 10:11:59 AM From: Lanny Melton Phone: Admit Date: 09/08/2022 01:35:00 PM Patient Name: Kell Pennington Visit Number: [id number] Discharge Date: 09/10/2022 09:30:00 AM ATTENTION: The Clinical Documentation Specialists (CDI) and [facility] Coding Staff appreciate your assistance in clarifying documentation. Please respond to the clarification below the line at the bottom and electronically sign. The CDI & [facility] Coding staff will review the response and follow-up if needed. Please note: Queries are made part of the Legal Health Record. If you have any questions, please contact the author of this message via ITS. Dr. Antelmo Palma There is documentation of mortality. Additional clarification is requested. History/Risk Factors: 62yo F,Epistaxisd/t severethrombocytopenia,ABLA, Agranulocytosis and pancytopenia d/t chemotherapy,metbreast cancer, Hx brainaneurysmw coiling,anxiety,depression, emphysema,lymphedema Clinical Indicators: Patient isstatus postpackingof the bilateral nostrils in the ER. Treatment: ENT was consulted forevaluation. Continue to monitor. Patient will betransfusedwith5 units of plateletsand monitor. Oncology consult due topancytopenia. Continue with home medications and follow closely. Can you please clarify the cause of ? [ ]Agranulocytosis secondary to cancer chemotherapy [ ]ABLA [x ]Metastaticbreast cancer [ ] Other, please specify [ ] Unable to determine (Template LastRevised: June 2020) MTDD
--- NOTE | 2022-10-13 02:03 | P.PN ---
Subjective Progress Note Date: 09/09/22 Patient is a 62-year-old female with a known history of metastatic breast cancer currently undergoing chemotherapy, last dose on presents to ER with complaints of. Patient states that she started havingbleeding around 9 PM last night. Patient attempted to hold pressure however whenever she blows her nose bleeding restarted again. Patient did have history of prior epistaxis. States that she has a hole in her septum. Denied any trauma. Denied any complaints of chest pain or shortness of breath. No nausea vomiting or abdominal pain or diarrhea. No cough or sputum production. Laboratory data showed WBC 1.3 hemoglobin 8.4 and platelets 6 Sodium 134 potassium 3.5 chloride 1-2 bicarb is 27 BUN 15 creatinine 0.46 and blood sugar 138 AST 114 ALT 90 alk phos 126 and albumin 3.0 EKG showed sinus tachycardia. 09/09/2022 Patient is currently sitting on the side of the bed. Awake alert and oriented x3. Complaints of shortness of breath and chest tightness. No fever no chills. No further episodes of bleeding. Bilateral nasal packing in place. Patient was transfused with 1 unit of platelets yesterday. Repeat hemoglobin today's 6.0, WBC 0.6 and platelets 9000. 1 unit of PRBC and 2 units of platelets were ordered. Oncology has seen the patient and recommended transfusion to keep hemoglobin greater than 7. ENT was consulted as well. Chest x-ray was done this afternoon showed mild diffuse infiltrate right lower lobe. Correlate for pneumonia. Follow-up is recommended. Laboratory test showed WBC 0.6 hemoglobin 6.0 and platelets 9000 this morning. Sodium 134 potassium 3.6 chloride 100 bicarb is 29 BUN 14 and creatinine 0.47. Current medications reviewed. Objective - Vital Signs Vital signs: Vital Signs Temp 98.0 F 09/09/22 15:13 Pulse 126 H 09/09/22 17:10 Resp 18 09/09/22 15:13 BP 114/73 09/09/22 15:13 Pulse Ox 97 09/09/22 15:13 FiO2 Intake & Output 09/08/22 09/09/22 09/09/22 18:59 06:59 18:59 Intake Total 0 1020 Balance 0 1020 Weight 65.317 kg 63.5 kg Intake: IV 600 Sodium Chloride 0.9% 1, 600 000 ml @ 75 mls/hr IV . [id number] [facility] Rx#:[id number] Oral 110 Blood Product 0 310 Platelet Pheresis Pas 0 Psoralen Unit [id number] Rc As-1 Unit 310 [id number] Other: # Voids 1 - Exam PHYSICAL EXAMINATION: Patient is lying in the bed, anxious., no acute distress, awake alert and oriented.. HEENT: Normocephalic. Neck is supple. Pupils reactive. Nostrils Liane bilaterally. Oral cavity is moist. Neck reveals no JVD, carotid bruits, or thyromegaly. CHEST EXAMINATION: Trachea is central. Symmetrical expansion. Bibasilar diminished sounds. No wheezing.. CARDIAC: Normal S1, S2 with no gallops. No murmurs ABDOMEN: Soft. Bowel sounds normal. No organomegaly. No abdominal bruits. Extremities: reveal no edema. No clubbing or cyanosis Neurologically awake, alert, oriented x3 with well-coordinated movements. No focal deficits noted Skin: No rash or skin lesions. Psychiatric: Coperative. Nonsuicidal, anxious. Musculoskeletal: No joint swelling or deformity. Normal range of motion. - Labs CBC & Chem 7: 09/10/22 04:53 09/10/22 04:53 Labs: Abnormal Lab Results - Last 24 Hours (Table) 09/08/22 09/08/22 09/09/22 Range/Units 12:40 16:18 09:10 WBC 1.3 L* 0.6 L* (3.8-10.6) k/uL RBC 2.40 L 1.96 L (3.80-5.40) m/uL Hgb 7.3 L 6.0 L* (11.4-16.0) gm/dL Hct 21.1 L 17.8 L* (34.0-46.0) % Plt Count 3 L* 9 L* D (150-450) k/uL Neutrophils # (Manual) 0.70 L (1.3-7.7) k/uL Lymphocytes # (Manual) 0.51 L (1.0-4.8) k/uL Sodium (137-145) mmol/L Creatinine (0.52-1.04) mg/dL Glucose (74-99) mg/dL Crossmatch See Detail 09/09/22 Range/Units 09:10 WBC (3.8-10.6) k/uL RBC (3.80-5.40) m/uL Hgb (11.4-16.0) gm/dL Hct (34.0-46.0) % Plt Count (150-450) k/uL Neutrophils # (Manual) (1.3-7.7) k/uL Lymphocytes # (Manual) (1.0-4.8) k/uL Sodium 134 L (137-145) mmol/L Creatinine 0.47 L (0.52-1.04) mg/dL Glucose 131 H (74-99) mg/dL Crossmatch Assessment and Plan Assessment: Acute nosebleed likely due to severe thrombocytopenia. Status nose pack in the ER. Acute blood loss anemia secondary to above Pancytopenia likely due to recent chemotherapy Metastatic breast cancer currently undergoing chemotherapy at [facility] History of brain aneurysm requiring coiling at [facility] Anxiety/depression DVT prophylaxis with SCDs Plan: Patient is status post packing of the bilateral nostrils in the ER. ENT and oncology was consulted. Patient was transfused 1 unit of platelets yesterday and 2 units were ordered again today. 1 unit of PRBC is being transfused as well. Oncology consult due to pancytopenia. Continue with home medications and follow closely. Prognosis is guarded at this time Time with Patient: Greater than 30
--- NOTE | 2022-10-13 02:16 | P.DS ---
Providers Date of admission: 09/08/22 13:35 Expected date of discharge: 09/10/22 Attending physician: Shaila Navarro Consults: 09/08/22 13:34 Consult Physician Urgent Consulting Provider: Darrian Kauffman Consult Reason/Comments: bilateral epistaxis Do you want consulting provider notified?: Yes 09/08/22 14:08 Consult Physician Urgent Consulting Provider: Sanju Oswald Consult Reason/Comments: new chemo, neutropenia and thrombocytopenia Do you want consulting provider notified?: Yes 09/10/22 05:08 Consult Physician Stat Consulting Provider: Mark Lubin Consult Reason/Comments: ICU Management Do you want consulting provider notified?: Already Contacted Primary care physician: Igor Bland [facility] Course: diagnosis Acute hypoxic respiratory failure due to metastatic breast cancer Acute nosebleed likely due to severe thrombocytopenia. Status nose pack in the ER. Acute blood loss anemia secondary to above Pancytopenia likely due to recent chemotherapy SIRS Metastatic breast cancer currently undergoing chemotherapy at [facility] History of brain aneurysm requiring coiling at [facility] Anxiety/depression DVT prophylaxis with SCDs Hospital course Patient is a 62-year-old female with a known history of metastatic breast cancer currently undergoing chemotherapy, last dose on presents to ER with complaints of. Patient states that she started havingbleeding around 9 PM last night. Patient attempted to hold pressure however whenever she blows her nose bleeding restarted again. Patient did have history of prior epistaxis. States that she has a hole in her septum. Denied any trauma. Denied any complaints of chest pain or shortness of breath. No nausea vomiting or abdominal pain or diarrhea. No cough or sputum production. Laboratory data showed WBC 1.3 hemoglobin 8.4 and platelets 6 Sodium 134 potassium 3.5 chloride 1-2 bicarb is 27 BUN 15 creatinine 0.46 and blood sugar 138 AST 114 ALT 90 alk phos 126 and albumin 3.0 EKG showed sinus tachycardia. 09/09/2022 Patient is currently sitting on the side of the bed. Awake alert and oriented x3. Complaints of shortness of breath and chest tightness. No fever no chills. No further episodes of bleeding. Bilateral nasal packing in place. Patient was transfused with 1 unit of platelets yesterday. Repeat hemoglobin today's 6.0, WBC 0.6 and platelets 9000. 1 unit of PRBC and 2 units of platelets were ordered. Oncology has seen the patient and recommended transfusion to keep hemoglobin greater than 7. ENT was consulted as well. Chest x-ray was done this afternoon showed mild diffuse infiltrate right lower lobe. Correlate for pneumonia. Follow-up is recommended. Laboratory test showed WBC 0.6 hemoglobin 6.0 and platelets 9000 this morning. Sodium 134 potassium 3.6 chloride 100 bicarb is 29 BUN 14 and creatinine 0.47. 09/10/2022 Overnight patient became tachycardic and febrile with Tmax 102.9. Patient also became hypotensive. Rapid response team was called and patient was transferred to MICU. Repeat chest x-ray this morning showed chronic changes without acute pulmonary process. Patient was started on broad-spectrum antibiotics, Zosyn. Repeat laboratory data in the evening showed WBC 0.5 hemoglobin 6.4 and platelets 24. Urinalysis is negative for infection. Patient's blood pressure did improve otherwise continued to be tachycardic. Patient's respiratory status continued to worsen. Patient on 09/10/2022 at 6:04.. Family has been notified. Plan - Discharge Summary Discharge Rx Participant: Yes New Discharge Prescriptions: No Action DULoxetine HCL [Cymbalta] 60 mg PO BID Omeprazole [PriLOSEC] 20 mg PO DAILY Gabapentin [Neurontin] 300 mg PO TID Potassium Chloride ER [K-Dur 20] 20 meq PO DAILY Mirabegron [Myrbetriq] 50 mg PO DAILY Levothyroxine Sodium [Synthroid] 125 mcg PO DAILY Tiotropium 2.5 Mcg/Puff [Spiriva Respimat 2.5 Mcg] 2 puff INHALATION RT-DAILY Brexpiprazole [Rexulti] 2 mg PO HS Albuterol Sulfate [Albuterol Sulfate Hfa] 2 puff PO RT-Q6H PRN PRN Reason: Shortness Of Breath Discharge Medication List DULoxetine HCL [Cymbalta] 60 mg PO BID 06/17/20 [History] Gabapentin [Neurontin] 300 mg PO TID 06/17/20 [History] Omeprazole [PriLOSEC] 20 mg PO DAILY 06/17/20 [History] Albuterol Sulfate [Albuterol Sulfate Hfa] 2 puff PO RT-Q6H PRN 09/08/22 [History] Brexpiprazole [Rexulti] 2 mg PO HS 09/08/22 [History] Levothyroxine Sodium [Synthroid] 125 mcg PO DAILY 09/08/22 [History] Mirabegron [Myrbetriq] 50 mg PO DAILY 09/08/22 [History] Potassium Chloride ER [K-Dur 20] 20 meq PO DAILY 09/08/22 [History] Tiotropium 2.5 Mcg/Puff [Spiriva Respimat 2.5 Mcg] 2 puff INHALATION RT-DAILY 09/08/22 [History] Follow up Appointment(s)/Referral(s): Igor Bland DO [Primary Care Provider] - 1-2 days Discharge Disposition: - Preliminary Cause of Preliminary Cause of : Acute hypoxic respiratory failure due to metastatic breast cancer
--- NOTE | 2022-10-14 16:34 | CDI ---
Documentation Clarification Form Date: 10/14/2022 04:20:29 PM From: Elvia Lentz RN, CCDS Email: [email or web address] Admit Date: 09/08/2022 01:35:00 PM Patient Name: Kell Pennington Visit Number: [id number] Discharge Date: 09/10/2022 09:30:00 AM ATTENTION: The Clinical Documentation Specialists (CDI) and [facility] Coding Staff appreciate your assistance in clarifying documentation. Please respond to the clarification below the line at the bottom and electronically sign. The CDI & [facility] Coding staff will review the response and follow-up if needed. Please note: Queries are made part of the Legal Health Record. If you have any questions, please contact the author of this message via ITS. Dr. Antelmo Palma The patient had SIRS per the discharge summary. Based on this information and the findings below, is there an additional diagnosis that is clinically appropriate for this patient? History/Risk Factors: metastaticbreast cancer, currently undergoingchemotherapy, last dose on presents to ER with complaints of nosebleed. Clinical Indicators: 09/10 discharge summary: Overnight patient becametachycardicandfebrilewith Tmax 102.9.Patient also becamehypotensive. Patients respiratory status continued to worsen. diagnosis: Acute hypoxic respiratory failuredue tometastaticbreast cancer. Acutenosebleedlikely due to severethrombocytopenia. Status nose pack in the ER. Acute blood loss anemiasecondary to above Pancytopenialikely due to recentchemotherapy. SIRS. 09/10 WBC: 0.8 09/09 Vitals signs: Temp 102.9, HR 138, RR 22, BP 88/50 Treatment: Antibiotics: IV Zosyn 3.375gm on 09/10 IV: 0.9 NS @75/hr Is there an additional diagnosis that is clinically appropriate for this patient? [ ] Sepsis, developed during stay, not present on admission [ x ] SIRS, without underlying infectious process [ ] Other, please specify [ ] Unable to determine SIRS Criteria: 2 or more of the following may indicate SIRS Temperature < 96.8F (36C) or > 101.0F (38.3C) Heart Rate > 90 bpm Respiratory Rate > 20 breaths/min or PaCO2 < 32 mmHg White Blood Cell Count > 12,000 or < 4,000 cells/mm3 or > 10% bands MTDD
== END 2022-09-10 09:30 | disposition expired | DRG 808 ==
LOC: EC 09:12 → 3SCARD 13:35 → 2SICU 09-10 00:42
PROVIDERS: ADMIT Hospitalist; ATTEND Hospitalist
PROC: 2Y41X5Z Packing of Nasal Region using Packing Material (ICD-10-PCS; 2022-09-08)
PROC: 30233R1 Transfusion of Nonautologous Platelets into Peripheral Vein, Percutaneous Approach (ICD-10-PCS; principal; 2022-09-09)
PROC: 30233N1 Transfusion of Nonautologous Red Blood Cells into Peripheral Vein, Percutaneous Approach (ICD-10-PCS; 2022-09-09)
PROC: 6A550Z2 Pheresis of Platelets, Single (ICD-10-PCS; 2022-09-09)
DX: D61.818 Other pancytopenia (principal); J96.01 Acute respiratory failure with hypoxia; R65.10 Systemic inflammatory response syndrome (SIRS) of non-infectious origin without acute organ dysfunction; C79.89 Secondary malignant neoplasm of other specified sites; C79.31 Secondary malignant neoplasm of brain; D70.1 Agranulocytosis secondary to cancer chemotherapy; D61.810 Antineoplastic chemotherapy induced pancytopenia; D62 Acute posthemorrhagic anemia; C50.912 Malignant neoplasm of unspecified site of left female breast; I95.9 Hypotension, unspecified; J43.9 Emphysema, unspecified; E03.9 Hypothyroidism, unspecified; F32.A Depression, unspecified; J34.89 Other specified disorders of nose and nasal sinuses; F41.9 Anxiety disorder, unspecified; T45.1X5A Adverse effect of antineoplastic and immunosuppressive drugs, initial encounter; R04.0 Epistaxis; R00.0 Tachycardia, unspecified; I89.0 Lymphedema, not elsewhere classified; K21.9 Gastro-esophageal reflux disease without esophagitis; Z66 Do not resuscitate; Z95.828 Presence of other vascular implants and grafts; Z79.891 Long term (current) use of opiate analgesic; Z85.3 Personal history of malignant neoplasm of breast; Z86.79 Personal history of other diseases of the circulatory system; Z87.891 Personal history of nicotine dependence; Z91.048 Other nonmedicinal substance allergy status; Z88.5 Allergy status to narcotic agent; Z79.51 Long term (current) use of inhaled steroids; Z90.12 Acquired absence of left breast and nipple; Z79.890 Hormone replacement therapy; Z79.899 Other long term (current) drug therapy; Z80.3 Family history of malignant neoplasm of breast
CPT/HCPCS: 30901; 36415; 71045; 80048; 80053; 81001; 82272; 85025; 86850; 86900; 86901; 86920; 87040; 93005; 94640; 99285